=== PATIENT | female | born 1940 | race Caucasian/White ===

== ENCOUNTER → 2017-07-26 | Outpatient (CLI) | payer OTHER, MEDICARE ==
[2016-01-14 10:01] VITALS: BP 112/60
== END ==
LOC: RAD 08:46
PROVIDERS: ATTEND Internal Medicine
DX: Z12.31 Encounter for screening mammogram for malignant neoplasm of breast (principal)
CPT/HCPCS: 77067

== ENCOUNTER → 2018-01-31 | Outpatient (CLI) | payer OTHER, MEDICARE ==
[2016-01-14 10:01] VITALS: BP 112/60
== END ==
LOC: LAB 07:12
PROVIDERS: ATTEND Internal Medicine Gastroenterology
DX: K64.0 First degree hemorrhoids (principal)
CPT/HCPCS: 82274

== ENCOUNTER 2021-02-06 17:33 | Inpatient (IN) ==
[2021-02-06] MEDS ORDERED: ADENOCARD INJ 6 MG ONE (18:23)
[2021-02-06] MEDS ORDERED: NS 1000 ML 1,000 ML ONE (18:24)
[2021-02-06] MEDS: NS 1000 ML 1,000 ML IV SCH (18:30)
[2021-02-06] MEDS ORDERED: CORDARONE INJ 150 MG VIAL ONE (18:32)
[2021-02-06] MEDS ORDERED: NS 100 ML IV 100 ML IV ONE ×2 (18:32→19:03)
[2021-02-06] MEDS ORDERED: ADENOCARD INJ 6 MG IVP ONE (18:35)
[2021-02-06] MEDS: ADENOCARD INJ 6 MG IVP ONE (18:36)
[2021-02-06] MEDS ORDERED: CORDARONE INJ 150 MG VIAL IVP ONE (18:41)
[2021-02-06] MEDS ORDERED: CARDIZEM INJ 50 MG VIAL IVP ONE (18:56)
[2021-02-06 19:00] LABS: BASOPHILS # (AUTO) 0.1 X10^3/uL (0.0-0.1); BASOPHILS % (AUTO) 0.5 % (0.2-1.0); EOSINOPHILS # (AUTO) 0.1 x10^3/uL (0.0-0.2); EOSINOPHILS % (AUTO) 0.7 % (0.9-2.9); HEMOGLOBIN 12.3 g/dL (12.0-16.0); LYMPHOCYTES # (AUTO) 1.7 X10^3/uL (1.3-2.9); LYMPHOCYTES % (AUTO) 11.4 % (21.0-51.0); MEAN CORPUSCULAR HEMOGLOBIN 26.8 pg (27.0-34.0); MEAN CORPUSCULAR HGB CONC 32.4 g/dL (33.0-35.0); MEAN CORPUSCULAR VOLUME 82.8 fL (80.0-100.0); MEAN PLATELET VOLUME 9.3 fL (7.4-11.0); MONOCYTES # (AUTO) 0.4 x10^3/uL (0.3-0.8); MONOCYTES % (AUTO) 2.4 % (0.0-13.0); PLATELET COUNT 269 X10^3/uL (150.0-450.0); RED CELL DISTRIBUTION WIDTH 15.3 % (11.6-16.5); WHITE BLOOD COUNT 15.3 X10^3/uL (3.6-10.0)
[2021-02-06] MEDS ORDERED: CARDIZEM INJ 50 MG VIAL ONE (19:02)
[2021-02-06] MEDS ORDERED: CARDIZEM INJ 125 MG VIAL ONE (19:02)
[2021-02-06] MEDS: CARDIZEM INJ 125 MG VIAL 125 MG in NS 100 ML IV 100 ML IV PRN (19:12)
[2021-02-06 19:14] LABS: BLOOD UREA NITROGEN 37 mg/dL (7-18); CALCIUM 8.4 mg/dL (8.5-10.1); CARBON DIOXIDE 23.3 mmol/L (21-32); CHLORIDE 104 mmol/L (98-107); CREATININE 1.05 mg/dL (0.55-1.02); SODIUM 141 mmol/L (136-145); TROPONIN I < 0.02 ng/mL (0-1.5); eGFR NON BLACK RACES 53 (>60)
[2021-02-06 19:18] LABS: ALANINE AMINOTRANSFERASE 23 Units/L (12-78); ALKALINE PHOSPHATASE 87 Units/L (46-116); ASPARTATE AMINO TRANSFERASE 35 Units/L (15-37); CKMB % 1.5 % (<4); COR CA(FOR HYPOALB) 9.2 mg/dL (8.5-10.1); CREATINE KINASE 65 Units/L (26-192); CREATINE KINASE MB < 1.0 ng/mL (0-4.0); TOTAL PROTEIN 7.1 g/dL (6.4-8.2)
--- NOTE | 2021-02-06 19:46 | DR.SOBA ---
HPI Time Seen Time Seen by Provider: 02/06/21 19:17 Primary Care Physician Primary Care Physician: Barry HPI Comment HPI Comment: According to pt she has hx of colon cancer .recently was noted to have malignant ascites .Pt had seen haem /onc at [place]. However over the last 2 days noticed increased belly swelling and increase shortness of breath. Complaints Chief Complaint Doctors Comments: shortness of breath Chief Complaint:: The patient has a diagnosis of stomach cancer, and has had to have fluid pulled from her abomen several times. The family member states that she just had chemo in [place], and fluid has accumulated quickly in her abdomen at this time. The patient states that it is difficult to breath due to the pressure. COVID-19 Coronavirus risk:travel/contact w/high risk person: No Has patient experienced Coronavirus symptoms: No Reviewed Nurses Notes Reviewed: Yes Source History Provided: Patient and Family Member Mode of Arrival Mode of Arrival: Wheelchair Timing Onset of Chief Complaint: 02/05/21 Context Onset:: At Rest Prehospital Care:: None Modifying Factors Worsens:: Lying Flat Improves:: Nothing PMH PMH Past Medical History: Yes Past Medical History: Arthritis, Coronary Artery Disease, Diabetes, Dyslipidemia, GERD and Hypertension Past Medical History Comment: Abdomen cancer Past Surgical History: Yes Surgical History: Bowel Resection Family History History of Family Medical Conditions: Yes Family Medical History: Diabetes Mellitus and Hypertension Social History Does patient currently use any type of tobacco product: No Have you used tobacco products in the last 12 months: No Type of Tobacco Use: None Does any household member use tobacco: No Alcohol Use: None Do you use any recreational Drugs:: No Lives With: Family Lives Where: Home Travel Risk Coronavirus risk:travel/contact w/high risk person: No Has patient experienced Coronavirus symptoms: No Infectious screening In the last 2 months have you had wt loss of >10#?: NO Have you had fever, night sweats or hemotysis?: No Have you traveled outside the country in the last 6 months?: No Isolation: Standard ROS Review of Systems Constitutional: No Symptoms Reported Eyes: No Symptoms Reported ENTM: No Symptoms Reported Respiratoy: Short of Breath Cardiovascular: Palpitations Gastrointestinal/Abdominal: Other (abdominal distension) Integumentary: No Symptoms Reported PE Vital Signs Vitals: Temperature 98.3 F Pulse Rate 89 Respiratory Rate 20 Blood Pressure [Right Arm] 160/71 Blood Pressure 150/85 O2 Sat by Pulse Oximetry 98 General Limitations: No Limitations General Appearance: Alert and Anxious Head Head Exam: Normal Inspection Eyes Eye exam: PERRL ENT ENT Exam: Mucous Membranes Moist Neck Neck Exam: Full ROM Respiratory Respiratory Exam: Normal Lung Sounds Bilat Respiratory Exam: Bilateral: Clear to Auscultation Cardiovascular Cardiovascular Exam: +S1 and +S2 Abdominal Exam Abdominal Exam: Other (disstened with pos fluid wave ) Extremities Extremities Exam: Normal Inspection Neurologic Neurological Exam: Alert COURSE Treatment Treatment: Pt when connected to monitor was noted to have HR over 200 but EKG showed wide qrs complex tachycardia. she was treated with adenosine,amioderone .did have several episodes of afib on the monitor.Pt was started on cardizem drip .Heart rate slowly improved .pt had no st elevation of EKG but did have right bundle branch block as well as left anterior fasicular block .cardiac enzymes were neg .her Dimer was elevated at 18.CTA did show pulmonary embolism .Pt did have central line placed .Pt was discussed with Dr Yanes and she agreed to admit under her services .Time spent in managing patients acute problem as well as evaluating her labs studies over 1hour ROR Labs Reviewed Laboratory Results Reviewed?: Yes Result Diagrams: 02/06/21 18:17 02/06/21 18:17 Laboratory: WBC 15.3 X10^3/uL (3.6-10.0) H 02/06/21 18:17 RBC 4.60 X10^6/uL (3.5-5.4) 02/06/21 18:17 Hgb 12.3 g/dL (12.0-16.0) 02/06/21 18:17 Hct 38.0 % (36.0-47.0) 02/06/21 18:17 MCV 82.8 fL (80.0-100.0) 02/06/21 18:17 MCH 26.8 pg (27.0-34.0) L 02/06/21 18:17 MCHC 32.4 g/dL (33.0-35.0) L 02/06/21 18:17 RDW 15.3 % (11.6-16.5) 02/06/21 18:17 Plt Count 269 X10^3/uL (150.0-450.0) 02/06/21 18:17 MPV 9.3 fL (7.4-11.0) 02/06/21 18:17 Neut % (Auto) 85.0 % (42.0-75.0) H 02/06/21 18:17 Lymph % (Auto) 11.4 % (21.0-51.0) L 02/06/21 18:17 [place] % (Auto) 2.4 % (0.0-13.0) 02/06/21 18:17 Eos % (Auto) 0.7 % (0.9-2.9) L 02/06/21 18:17 Baso % (Auto) 0.5 % (0.2-1.0) 02/06/21 18:17 Neut # (Auto) 13.0 x10^3/uL (2.2-4.8) H 02/06/21 18:17 Lymph # (Auto) 1.7 X10^3/uL (1.3-2.9) 02/06/21 18:17 [place] # (Auto) 0.4 x10^3/uL (0.3-0.8) 02/06/21 18:17 Eos # (Auto) 0.1 x10^3/uL (0.0-0.2) 02/06/21 18:17 Baso # (Auto) 0.1 X10^3/uL (0.0-0.1) 02/06/21 18:17 Absolute Nucleated RBC 0.0 /100WBC 02/06/21 18:17 PT 13.9 SECONDS (11.8-14.3) 02/06/21 18:17 INR Target Range - 02/06/21 18:17 INR 1.12 (0.8-1.3) 02/06/21 18:17 APTT 23.8 SECONDS (22.9-36.5) 02/06/21 18:17 PTT Comment - 02/06/21 18:17 D-Dimer 18.62 ug/ml (0.0-0.57) H* 02/06/21 18:17 Sodium 141 mmol/L (136-145) 02/06/21 18:17 Corrected Sodium TNP 02/06/21 18:17 Potassium 3.8 mmol/L (3.5-5.1) 02/06/21 18:17 Chloride 104 mmol/L (98-107) 02/06/21 18:17 Carbon Dioxide 23.3 mmol/L (21-32) 02/06/21 18:17 BUN 37 mg/dL (7-18) H 02/06/21 18:17 Creatinine 1.05 mg/dL (0.55-1.02) H 02/06/21 18:17 Est GFR (MDRD) Af Amer > 60 (>60) 02/06/21 18:17 Est GFR (MDRD) Non-Af 53 (>60) L 02/06/21 18:17 Glucose 98 mg/dL (65-99) 02/06/21 18:17 Calcium 8.4 mg/dL (8.5-10.1) L 02/06/21 18:17 Corrected Calcium 9.2 mg/dL (8.5-10.1) 02/06/21 18:17 Total Bilirubin 0.30 mg/dL (0.2-1.0) 02/06/21 18:17 AST 35 Units/L (15-37) 02/06/21 18:17 ALT 23 Units/L (12-78) 02/06/21 18:17 Alkaline Phosphatase 87 Units/L (46-116) 02/06/21 18:17 Creatine Kinase 65 Units/L (26-192) 02/06/21 18:17 CK-MB (CK-2) < 1.0 ng/mL (0-4.0) 02/06/21 18:17 CK/CKMB % Calc 1.5 % (<4) 02/06/21 18:17 Troponin I < 0.02 ng/mL (0-1.5) 02/06/21 18:17 B-Natriuretic Peptide 136 pg/mL (0-79) H 02/06/21 18:17 Total Protein 7.1 g/dL (6.4-8.2) 02/06/21 18:17 Albumin 3.0 g/dL (3.4-5.0) L 02/06/21 18:17 Globulin 4.1 g/dL (2.5-4.5) 02/06/21 18:17 Albumin/Globulin Ratio 0.7 Ratio (1.1-2.1) L 02/06/21 18:17 Specimen Type Catherized urine 02/06/21 22:28 Urine Color Yellow (YELLOW) 02/06/21 22:28 Urine Appearance Clear (CLEAR) 02/06/21 22: Urine pH 5.0 (5.0 - 8.0) 02/06/21 22:28 Ur Specific [place] 1.010 (1.000-1.030) 02/06/21 22:28 Urine Protein 1+ (NEGATIVE) 02/06/21 22:28 Urine Glucose (UA) Negative (NEGATIVE) 02/06/21 22:28 Urine Ketones Negative (NEGATIVE) 02/06/21 22:28 Urine Occult Blood 3+ (NEGATIVE) 02/06/21 22:28 Urine Nitrite Negative (NEGATIVE) 02/06/21 22: Urine Bilirubin Negative (NEGATIVE) 02/06/21 22: Urine Urobilinogen Normal (NORMAL) 02/06/21 22:28 Ur Leukocyte Esterase Negative (NEGATIVE) 02/06/21 22:28 Urine RBC 3-5 /HPF (0-3) A 02/06/21 22:28 Urine WBC 0-2 /HPF (0-5) 02/06/21 22:28 Ur Squamous Epith Cells Negative /HPF (NEGATIVE) 02/06/21 22:28 Urine Bacteria Negative /HPF (NEGATIVE) 02/06/21 22:28 Ur Culture Indicated? Yes/culture set up 02/06/21 22:28 SARS CoV-2 RNA Rapid JOSE RAMON Negative (NEGATIVE) 02/06/21 22:28 Opioid Opioid Risk Tool Age (Levi box if 16-45): No History of Preadolescent Sexual Abuse: No Total: 0 Total Score Risk Category: Low Risk Copyright: Samson HA predicting aberrant behaviors Diagnosis Discharge Problem: Regular sinus tachycardia, Paroxysmal A-fib, Diabetes mellitus type 2, Hyperlip idemia Pulmonary embolism Qualifiers: Pulmonary embolism type: unspecified Chronicity: acute Acute cor pulmonale presence: without acute cor pulmonale Qualified Code(s): I26.99 - Other pulmonary embolism without acute cor pulmonale Colon cancer Qualifiers: Colon location: unspecified part of colon Qualified Code(s): C18.9 - Malignant neoplasm of colon, unspecified Abdominal ascites Qualifiers: Ascites type: malignant Qualified Code(s): R18.0 - Malignant ascites Instructions Forms: Patient Portal
--- NOTE | 2021-02-06 20:39 | RAD ---
HISTORYcentral line placementSTUDYCHEST, 1 [id number]/01/2021FINDINGSThe trachea is midline. Right subclavian central line with tip in the proximal right atrium. The cardiac silhouette is stable. The lungs are clear without focal infiltrate or effusion. No pneumothorax. The bony thorax is unremarkable.IMPRESSIONRight subclavian central line with tip in proximal right atrium.No active cardiopulmonary diseaseElectronically signed by: Clinton Mackay (February 06, 2021 20:36:58)
--- NOTE | 2021-02-06 21:14 | RAD ---
HISTORYdifficulty breathingSTUDYCHEST, 1 VIEWCOMPARISONNone availableTECHNIQUEChest radiographic imaging, AP portable projection, 1 imageFINDINGSMild cardiomegaly.Diffuse increased interstitial markings likely represent senescent changes.No focal airspace disease.No pleural effusion.No pneumothorax.No acute osseous abnormality.IMPRESSIONNo imaging findings of acute cardiopulmonary disease.Electronically signed by: Paul Lloyd (February 06, 2021 21:11:33)
--- NOTE | 2021-02-06 21:22 | CT ---
HISTORYA theSTUDYCTA CHESTCOMPARISONChest radiograph 02/06/2021 isTECHNIQUEMultiple axial images of the chest were obtained from the thoracic inlet to the upper abdomen after the administration of IV contrast. 3D reconstructions utilizing axial MIPS imaging was performed and reviewed. Dose reduction techniques including Automated Exposure Control (AEC) and adjustment of mA and kV were utilized.FINDINGSThe mediastinum does not demonstrate significant pathological lymphadenopathy. There is no paracardial effusion observed. The thoracic aorta is normal in its contour without evidence for aneurysmal dilatation. There are several thrombi within segmental and subsegmental branches supplying the right upper and lower lobes. There are no thrombi within the pulmonary trunk or left or right main pulmonary arteries. There is no CT evidence of right heart strain.Evaluation of the lung parenchyma fails to demonstrate focal consolidation or effusion. Subsegmental atelectasis within the left lung base. No pneumothorax. No pulmonary nodule or mass can be identified. The bony thorax is unremarkable in its appearance. There is a right subclavian central line with a small amount of subcutaneous emphysema near the insertion site. Moderate to large volume ascites and peritoneal carcinomatosis seen in the upper abdomen.IMPRESSIONAcute pulmonary embolic disease with several small thrombi within segmental and subsegmental branches supplying the right upper and right lower lobes. Clot burden low.Mild subsegmental atelectasis within the left lung base.Moderate to large volume ascites and peritoneal carcinomatosis within the upper abdomen.The availability of the report and findings were communicated to Dr. Loco by Radiology call production support supervisor on 9:20 p.m. 02/06/[address] Clinton Mackay.Electronically signed by: Clinton Mackay (February 06, 2021 21:20:48)
[2021-02-06 22:56] LABS: BILIRUBIN,URINE NEGATIVE (NEGATIVE); BLOOD/HEMOGLOBIN,URINE 3+ (NEGATIVE); GLUCOSE, URINE NEGATIVE (NEGATIVE); KETONES,URINE NEGATIVE (NEGATIVE); LEUKOCYTE ESTERASE ,URINE NEGATIVE (NEGATIVE); NITRITES,URINE NEGATIVE (NEGATIVE); PROTEIN,URINE 1+ (NEGATIVE); UROBILINOGEN,URINE NORMAL (NORMAL)
[2021-02-06 23:03] LABS: APPEARANCE,URINE CLEAR (CLEAR); BACTERIA,URINE NEGATIVE /HPF (NEGATIVE); COLOR,URINE YELLOW (YELLOW); SQUAMOUS EPITHELIAL CELL,UR NEGATIVE /HPF (NEGATIVE)
[2021-02-06] MEDS ORDERED: LOVENOX INJ 60 MG SYR SC ONE (23:37)
[2021-02-07] MEDS: ADENOCARD INJ 6 MG IVP ONE (00:11)
[2021-02-07 00:25] LABS: CKMB % 1.5 % (<4); CREATINE KINASE 66 Units/L (26-192); CREATINE KINASE MB < 1.0 ng/mL (0-4.0); TROPONIN I 0.02 ng/mL (0-1.5)
[2021-02-07] MEDS ORDERED: CARDIZEM INJ 125 MG VIAL ONE (01:08)
[2021-02-07] MEDS ORDERED: NS 100 ML IV 100 ML IV ONE ×2 (01:08→16:09)
[2021-02-07] MEDS: CARDIZEM INJ 125 MG VIAL 125 MG in NS 100 ML IV 100 ML IV PRN ×3 (01:40→20:07)
[2021-02-07 04:44] LABS: BASOPHILS # (AUTO) 0.1 X10^3/uL (0.0-0.1); BASOPHILS % (AUTO) 0.5 % (0.2-1.0); EOSINOPHILS # (AUTO) 0.1 x10^3/uL (0.0-0.2); HEMATOCRIT 33.2 % (36.0-47.0); HEMOGLOBIN 10.6 g/dL (12.0-16.0); LYMPHOCYTES # (AUTO) 0.9 X10^3/uL (1.3-2.9); LYMPHOCYTES % (AUTO) 7.4 % (21.0-51.0); MEAN CORPUSCULAR HEMOGLOBIN 26.5 pg (27.0-34.0); MEAN CORPUSCULAR VOLUME 83.1 fL (80.0-100.0); MEAN PLATELET VOLUME 9.4 fL (7.4-11.0); MONOCYTES # (AUTO) 0.2 x10^3/uL (0.3-0.8); MONOCYTES % (AUTO) 2.1 % (0.0-13.0); NEUTROPHILS # (AUTO) 10.7 x10^3/uL (2.2-4.8); PLATELET COUNT 212 X10^3/uL (150.0-450.0); RED CELL DISTRIBUTION WIDTH 15.1 % (11.6-16.5)
[2021-02-07 05:14] LABS: ALANINE AMINOTRANSFERASE 17 Units/L (12-78); ALBUMIN 2.5 g/dL (3.4-5.0); ALKALINE PHOSPHATASE 68 Units/L (46-116); ASPARTATE AMINO TRANSFERASE 28 Units/L (15-37); BLOOD UREA NITROGEN 32 mg/dL (7-18); CALCIUM 7.9 mg/dL (8.5-10.1); CARBON DIOXIDE 25.2 mmol/L (21-32); CHLORIDE 107 mmol/L (98-107); CKMB % 1.9 % (<4); COR CA(FOR HYPOALB) 9.1 mg/dL (8.5-10.1); CREATINE KINASE 57 Units/L (26-192); CREATINE KINASE MB 1.1 ng/mL (0-4.0); CREATININE 0.78 mg/dL (0.55-1.02); SODIUM 142 mmol/L (136-145); TROPONIN I < 0.02 ng/mL (0-1.5); eGFR NON BLACK RACES > 60 (>60)
[2021-02-07] MEDS ORDERED: LOVENOX INJ 60 MG SYR SC SCH (09:00)
[2021-02-07] MEDS ORDERED: ZOFRAN TAB 4 MG PO PRN (09:24)
[2021-02-07] MEDS ORDERED: GLUCOPHAGE PO SCH (10:00)
--- NOTE | 2021-02-07 10:06 | DR.H&P ---
H&P History & Physical for Day of: H&P Date: 02/07/21 Chief Complaint Chief Complaint: Abdominal pain and distention Shortness of breath Allergies Allergies Allergy/AdvReac Type Severity Reaction Status Date / Time No Known Drug Allergies Allergy Verified 01/12/21 09:39 History of Present Illness History of Present Illness: Pt is a 80 year old female with a medical history of peritoneal carcinomatosis, hypertension, diabetes, presenting after having abdominal pain, distention, and shortness of breath. Pt states that she was diagnosed with colon cancer in the past that was surgically removed back in 2004. It was recently discovered over the past month that she has peritoneal carcinomatosis and is followed by oncology-Dr Tomlin in [place], [place]. She had her first chemotherapy treatment last . Over the past few days her abdomen progressively distended and causing shortness of breath. She has had paracentesis before in the past and is on diuretics, however ascites became rapidly worse after chemo. Pt denies fevers, chills. In the ED, she was di scovered to have tachyarrhythmia and given adenosine and amiodarone. It was noted at the time also paroxysmal atrial fibrillation. She was started on a cardizem gtt for rate control. Labs: Wbc 12, Hgb 10.6, Plt 212, Na 142, K 3.6, Creatinine 0.78, Glucose 96, AST 28, ALT 17, ALKP 68, Troponin negative x 3, BNP 136, Urine culture pending, COVID-19 negative. D-dimer elevated at 18, CTA chest was obtained that revealed: Acute pulmonary embolic disease with several small thrombi within segmental and subsegmental branches supplying the right upper and right lower lobes. Clot burden low. Mild subsegmental atelectasis within the left lung base. Moderate to large volume ascites and peritoneal carcinomatosis within the upper abdomen. Pt was started on full dose lovenox due to findings of pulmonary embolus. General surgery was consulted for paracentesis to be performed today. Will start antibiotics when fluid sample obtained for culture and cytology. Blood pressure and pulse within normal limits on cardizem gtt@15/h. Will wean as tolerated, Ekg this morning does not show atrial fibrillation and tachycardia likely result of increased stress due to significant ascites causing abdominal pressure and discomfort. Restart home medications. Will continue to monitor and follow up labs/imaging in the morning. Time spent on clinical assessment, reviewing labs and imaging, decision making, and documentation greater than 75 minutes. Critical care time spent 30-74 minutes in clinical assessment, reviewing labs/imaging, decision making, and documentation. Past Medical History Past Medical History: Arthritis, Coronary Artery Disease, Diabetes, Dyslipidemia, GERD and Hypertension Additional Medical History: Hx Diverticulitis, Colon Cancer, Constipation Past Surgical History Surgical History: Bowel Resection Additional Surgical History: Previous heart cath Family History Family Medical History: Diabetes Mellitus and Hypertension Social History Does patient currently use any type of tobacco product: No Have you used tobacco products in the last 12 months: No Type of Tobacco Use: None Does any household member use tobacco: No Alcohol Use: None Drug Use: Prescription Drugs Medications Home Medications: No Known Drug Allergies Allergy (Verified 01/12/21 09:39) CONTINUE taking the following medications amlodipine 10 mg PO DAILY 02/06/21 [History] furosemide [Lasix] 20 mg PO BID 02/06/21 [History] gemfibrozil 600 mg PO DAILY 02/06/21 [History] megestrol 40 mg PO BID 02/06/21 [History] ondansetron HCl [Zofran] 4 mg PO Q4-6H PRN 02/06/21 [History] potassium chloride 10 meq PO BID 02/06/21 [History] triamterene-hydrochlorothiazid 1 cap PO DAILY 02/06/21 [History] Labs Result Diagrams: 02/07/21 04:15 02/07/21 04:15 Labs: Laboratory WBC 12.0 X10^3/uL (3.6-10.0) H 02/07/21 04:15 RBC 4.00 X10^6/uL (3.5-5.4) 02/07/21 04:15 Hgb 10.6 g/dL (12.0-16.0) L 02/07/21 04:15 Hct 33.2 % (36.0-47.0) L 02/07/21 04:15 MCV 83.1 fL (80.0-100.0) 02/07/21 04:15 MCH 26.5 pg (27.0-34.0) L 02/07/21 04:15 MCHC 32.0 g/dL (33.0-35.0) L 02/07/21 04:15 RDW 15.1 % (11.6-16.5) 02/07/21 04:15 Plt Count 212 X10^3/uL (150.0-450.0) 02/07/21 04:15 MPV 9.4 fL (7.4-11.0) 02/07/21 04:15 Neut % (Auto) 89.0 % (42.0-75.0) H 02/07/21 04:15 Lymph % (Auto) 7.4 % (21.0-51.0) L 02/07/21 04:15 [place] % (Auto) 2.1 % (0.0-13.0) 02/07/21 04:15 Eos % (Auto) 1.0 % (0.9-2.9) 02/07/21 04:15 Baso % (Auto) 0.5 % (0.2-1.0) 02/07/21 04:15 Neut # (Auto) 10.7 x10^3/uL (2.2-4.8) H 02/07/21 04:15 Lymph # (Auto) 0.9 X10^3/uL (1.3-2.9) L 02/07/21 04:15 [place] # (Auto) 0.2 x10^3/uL (0.3-0.8) L 02/07/21 04:15 Eos # (Auto) 0.1 x10^3/uL (0.0-0.2) 02/07/21 04:15 Baso # (Auto) 0.1 X10^3/uL (0.0-0.1) 02/07/21 04:15 Absolute Nucleated RBC 0.0 /100WBC 02/07/21 04:15 PT 13.9 SECONDS (11.8-14.3) 02/06/21 18:17 INR Target Range - 02/06/21 18:17 INR 1.12 (0.8-1.3) 02/06/21 18:17 APTT 23.8 SECONDS (22.9-36.5) 02/06/21 18:17 PTT Comment - 02/06/21 18:17 D-Dimer 18.62 ug/ml (0.0-0.57) H* 02/06/21 18:17 Sodium 142 mmol/L (136-145) 02/07/21 04:15 Corrected Sodium TNP 02/07/21 04:15 Potassium 3.6 mmol/L (3.5-5.1) 02/07/21 04:15 Chloride 107 mmol/L (98-107) 02/07/21 04:15 Carbon Dioxide 25.2 mmol/L (21-32) 02/07/21 04:15 BUN 32 mg/dL (7-18) H 02/07/21 04:15 Creatinine 0.78 mg/dL (0.55-1.02) 02/07/21 04:15 Est GFR (MDRD) Af Amer > 60 (>60) 02/07/21 04:15 Est GFR (MDRD) Non-Af > 60 (>60) 02/07/21 04:15 Glucose 96 mg/dL (65-99) 02/07/21 04:15 Calcium 7.9 mg/dL (8.5-10.1) L 02/07/21 04:15 Corrected Calcium 9.1 mg/dL (8.5-10.1) 02/07/21 04:15 Total Bilirubin 0.40 mg/dL (0.2-1.0) 02/07/21 04:15 AST 28 Units/L (15-37) 02/07/21 04:15 ALT 17 Units/L (12-78) 02/07/21 04:15 Alkaline Phosphatase 68 Units/L (46-116) 02/07/21 04:15 Creatine Kinase 57 Units/L (26-192) 02/07/21 04:15 CK-MB (CK-2) 1.1 ng/mL (0-4.0) 02/07/21 04:15 CK/CKMB % Calc 1.9 % (<4) 02/07/21 04:15 Troponin I < 0.02 ng/mL (0-1.5) 02/07/21 04:15 B-Natriuretic Peptide 136 pg/mL (0-79) H 02/06/21 18:17 Total Protein 6.0 g/dL (6.4-8.2) L 02/07/21 04:15 Albumin 2.5 g/dL (3.4-5.0) L 02/07/21 04:15 Globulin 3.5 g/dL (2.5-4.5) 02/07/21 04:15 Albumin/Globulin Ratio 0.7 Ratio (1.1-2.1) L 02/07/21 04:15 Specimen Type Catherized urine 02/06/21 22:28 Urine Color Yellow (YELLOW) 02/06/21 22:28 Urine Appearance Clear (CLEAR) 02/06/21 22: Urine pH 5.0 (5.0 - 8.0) 02/06/21 22: Ur Specific [place] 1.010 (1.000-1.030) 02/06/21 22: Urine Protein 1+ (NEGATIVE) 02/06/21 22: Urine Glucose (UA) Negative (NEGATIVE) 02/06/21 22: Urine Ketones Negative (NEGATIVE) 02/06/21 22: Urine Occult Blood 3+ (NEGATIVE) 02/06/21 22: Urine Nitrite Negative (NEGATIVE) 02/06/21 22: Urine Bilirubin Negative (NEGATIVE) 02/06/21 22: Urine Urobilinogen Normal (NORMAL) 02/06/21 22:28 Ur Leukocyte Esterase Negative (NEGATIVE) 02/06/21 22:28 Urine RBC 3-5 /HPF (0-3) A 02/06/21 22:28 Urine WBC 0-2 /HPF (0-5) 02/06/21 22:28 Ur Squamous Epith Cells Negative /HPF (NEGATIVE) 02/06/21 22:28 Urine Bacteria Negative /HPF (NEGATIVE) 02/06/21 22:28 Ur Culture Indicated? Yes/culture set up 02/06/21 22:28 SARS CoV-2 RNA Rapid JOSE RAMON Negative (NEGATIVE) 02/06/21 22:28 Review of Systems Constitutional: No Symptoms Reported Eyes: No Symptoms Reported ENT: No Symptoms Reported Respiratory: Shortness of Breath Cardiovascular: No Symptoms Reported Gastrointestinal: Abdominal Pain; denies Nausea, Diarrhea and Constipation Genitourinary: No Symptoms Reported Musculoskeletal: No Symptoms Reported Skin: No Symptoms Reported Neurological: No Symptoms Reported Physical Exam Vital Signs: Temperature 98.9 F Pulse Rate [Left] 79 Pulse Rate 79 Respiratory Rate 25 Blood Pressure [Right Arm] 149/69 Blood Pressure 133/60 O2 Sat by Pulse Oximetry 96 Oriented: Normal Eyes: Normal Ear: Normal Nose: Normal Throat: Normal Respiratory: Clear Throughout Cardiovascular: Normal : Normal Auscultation: Bowel Sounds: Decreased Palpation: Other (distention) Tenderness: Normal Skin: Normal Musculoskeletal: Normal Psychiatric: Normal Mood Description: Calm and Appropriate Affect: Normal Speech Pattern: Clear and Appropriate Assessment/Plan (1) Pulmonary embolism: Qualifiers: Acute cor pulmonale presence: without acute cor pulmonale Chronicity: acute Pulmonary embolism type: unspecified Qualified Code(s): I26.99 - Other pulmonary embolism without acute cor pulmonale Status: Acute Plan: Full dose lovenox (2) Ascites, malignant: Status: Acute Plan: General surgery consulted for paracentesis (3) Paroxysmal A-fib: Status: Acute Plan: cardizem gtt wean as tolerated (4) Regular sinus tachycardia: Status: Acute Review H&P Reviewed: Yes Patient was examined?: Yes
[2021-02-07] MEDS: LASIX PO SCH ×2 (15:11→20:07)
[2021-02-07] MEDS: MICRO K EXTEN CAP 10 MEQ PO SCH ×2 (15:11→20:07)
[2021-02-07] MEDS: NS 1000 ML 1,000 ML IV SCH (15:12)
[2021-02-07] MEDS: MEGACE PO SCH ×2 (15:12→20:07)
[2021-02-07] MEDS: NORVASC TAB 10 MG PO SCH (15:13)
[2021-02-07] MEDS: LOPID PO SCH (15:13)
[2021-02-07] MEDS: ROCEPHIN 1 GRAM IV PREMIX 1 G/50 ML IV.SOLN. IV SCH (16:02)
[2021-02-07] MEDS ORDERED: LOVENOX INJ 80 MG SYR SC ONE (19:27)
[2021-02-07] MEDS ORDERED: ZOCOR TAB 20 MG PO ONE (19:28)
[2021-02-07] MEDS: LOVENOX INJ 80 MG SYR SC SCH (20:06)
[2021-02-07] MEDS: ZOCOR TAB 20 MG PO SCH (20:07)
[2021-02-07 21:15] VITALS: BMI 26.1
[2021-02-08] MEDS: NS 1000 ML 1,000 ML IV SCH ×4 (04:01→16:39)
[2021-02-08 05:21] LABS: BASOPHILS # (AUTO) 0.1 X10^3/uL (0.0-0.1); BASOPHILS % (AUTO) 0.5 % (0.2-1.0); EOSINOPHILS # (AUTO) 0.1 x10^3/uL (0.0-0.2); EOSINOPHILS % (AUTO) 1.3 % (0.9-2.9); HEMATOCRIT 33.4 % (36.0-47.0); HEMOGLOBIN 10.8 g/dL (12.0-16.0); LYMPHOCYTES # (AUTO) 0.7 X10^3/uL (1.3-2.9); LYMPHOCYTES % (AUTO) 6.8 % (21.0-51.0); MEAN CORPUSCULAR HEMOGLOBIN 26.8 pg (27.0-34.0); MEAN CORPUSCULAR HGB CONC 32.4 g/dL (33.0-35.0); MEAN CORPUSCULAR VOLUME 82.8 fL (80.0-100.0); MEAN PLATELET VOLUME 9.6 fL (7.4-11.0); MONOCYTES # (AUTO) 0.1 x10^3/uL (0.3-0.8); MONOCYTES % (AUTO) 1.2 % (0.0-13.0); NEUTROPHILS # (AUTO) 9.2 x10^3/uL (2.2-4.8); NEUTROPHILS % (AUTO) 90.2 % (42.0-75.0); PLATELET COUNT 188 X10^3/uL (150.0-450.0); RED BLOOD COUNT 4.04 X10^6/uL (3.5-5.4); RED CELL DISTRIBUTION WIDTH 14.9 % (11.6-16.5); WHITE BLOOD COUNT 10.2 X10^3/uL (3.6-10.0)
[2021-02-08 05:32] LABS: ALANINE AMINOTRANSFERASE 24 Units/L (12-78); ALBUMIN 2.4 g/dL (3.4-5.0); ALKALINE PHOSPHATASE 64 Units/L (46-116); ASPARTATE AMINO TRANSFERASE 34 Units/L (15-37); BLOOD UREA NITROGEN 22 mg/dL (7-18); CALCIUM 7.7 mg/dL (8.5-10.1); CARBON DIOXIDE 24.2 mmol/L (21-32); CHLORIDE 106 mmol/L (98-107); CREATININE 0.66 mg/dL (0.55-1.02); MAGNESIUM 2.1 mg/dL (1.7-2.9); SODIUM 142 mmol/L (136-145); eGFR NON BLACK RACES > 60 (>60)
[2021-02-08 06:10] LABS: PLATELET MORPHOLOGY COMMENT NORMAL (NORMAL)
[2021-02-08] MEDS: LOPID PO SCH (09:56)
[2021-02-08] MEDS: LASIX PO SCH ×2 (09:56→21:20)
[2021-02-08] MEDS: LOVENOX INJ 80 MG SYR SC SCH ×2 (09:57→21:22)
[2021-02-08] MEDS: MEGACE PO SCH ×2 (09:58→21:21)
[2021-02-08] MEDS: MICRO K EXTEN CAP 10 MEQ PO SCH ×3 (10:00→21:19)
[2021-02-08] MEDS: MAXZIDE 37.5/25 MG PO SCH (10:00)
[2021-02-08] MEDS: ROCEPHIN 1 GRAM IV PREMIX 1 G/50 ML IV.SOLN. IV SCH (10:00)
[2021-02-08] MEDS ORDERED: ZOFRAN INJ 4 MG VIAL ONE (10:14)
[2021-02-08] MEDS: ZOFRAN INJ 4 MG VIAL IVP PRN ×2 (10:20→18:31)
--- NOTE | 2021-02-08 11:10 | DR.PROGNOT ---
Hospital Progress Notes - Progress Note for Day of: Progress Note Date: 02/08/21 - Chief Complaint Chief Complaint: feeling much better . s/p paracentesis and drainage . more than 3500 cc was drained already . less SOB . c/o moderate nausea . no abdominal pain. Catheter in place . - Past Medical Family Social History Past Med/Fam/Surg Hx: No changes since H&P Allergies: Allergies No Known Drug Allergies Allergy (Verified 01/12/21 09:39) - Review Of Systems ROS: No change since H&P - Vital Signs Vital Signs: Temperature 98.8 F Pulse Rate [Left] 79 Pulse Rate 89 Respiratory Rate 22 Blood Pressure [Right Arm] 149/69 Blood Pressure 138/66 O2 Sat by Pulse Oximetry 95 - Physical Exam Oriented: Normal Eyes: Normal Ear: Normal Nose: Normal Throat: Normal Respiratory: Normal, OTHER (positive for PE ) Cardiovascular: Normal : Normal GI:Auscultation: Decreased GI:Palpation: Other (distention) GI: Tenderness: Normal, Diffuse, Mild (diffuse tenderness but soft distended abdomen with ascites ) Skin: Normal Musculoskeletal: Normal Psychiatric: Normal Mood Description: Calm Affect: Normal Speech Pattern: Clear, Appropriate - Laboratory and Diagnostics Result Diagrams: 02/08/21 04:40 02/08/21 04:40 Labs: 02/06/21 22:28 Urine,Catheterized Urine Culture - Preliminary Laboratory WBC 10.2 X10^3/uL (3.6-10.0) H 02/08/21 04:40 RBC 4.04 X10^6/uL (3.5-5.4) 02/08/21 04:40 Hgb 10.8 g/dL (12.0-16.0) L 02/08/21 04:40 Hct 33.4 % (36.0-47.0) L 02/08/21 04:40 MCV 82.8 fL (80.0-100.0) 02/08/21 04:40 MCH 26.8 pg (27.0-34.0) L 02/08/21 04:40 MCHC 32.4 g/dL (33.0-35.0) L 02/08/21 04:40 RDW 14.9 % (11.6-16.5) 02/08/21 04:40 Plt Count 188 X10^3/uL (150.0-450.0) 02/08/21 04:40 Plt Count Comment Adequate (ADEQUATE) 02/08/21 04:40 MPV 9.6 fL (7.4-11.0) 02/08/21 04:40 Neut % (Auto) 90.2 % (42.0-75.0) H 02/08/21 04:40 Lymph % (Auto) 6.8 % (21.0-51.0) L 02/08/21 04:40 [place] % (Auto) 1.2 % (0.0-13.0) 02/08/21 04:40 Eos % (Auto) 1.3 % (0.9-2.9) 02/08/21 04:40 Baso % (Auto) 0.5 % (0.2-1.0) 02/08/21 04:40 Neut # (Auto) 9.2 x10^3/uL (2.2-4.8) H 02/08/21 04:40 Lymph # (Auto) 0.7 X10^3/uL (1.3-2.9) L 02/08/21 04:40 [place] # (Auto) 0.1 x10^3/uL (0.3-0.8) L 02/08/21 04:40 Eos # (Auto) 0.1 x10^3/uL (0.0-0.2) 02/08/21 04:40 Baso # (Auto) 0.1 X10^3/uL (0.0-0.1) 02/08/21 04:40 Absolute Nucleated RBC 0.0 /100WBC 02/08/21 04:40 Total Counted 100 02/08/21 04:40 Neutrophils % (Manual) 92 % (39-76) H 02/08/21 04:40 Lymphocytes % (Manual) 6 % (13-43) L 02/08/21 04:40 Monocytes % (Manual) 1 % (4-9) L 02/08/21 04:40 Eosinophils % (Manual) 1 % (0-6) 02/08/21 04:40 Plt Morphology Comment Normal (NORMAL) 02/08/21 04:40 RBC Morphology Normal (NORMAL) 02/08/21 04:40 PT 13.9 SECONDS (11.8-14.3) 02/06/21 18:17 INR Target Range - 02/06/21 18:17 INR 1.12 (0.8-1.3) 02/06/21 18:17 APTT 23.8 SECONDS (22.9-36.5) 02/06/21 18:17 PTT Comment - 02/06/21 18:17 D-Dimer 18.62 ug/ml (0.0-0.57) H* 02/06/21 18:17 Sodium 142 mmol/L (136-145) 02/08/21 04:40 Corrected Sodium TNP 02/08/21 04:40 Potassium 3.4 mmol/L (3.5-5.1) L 02/08/21 04:40 Chloride 106 mmol/L (98-107) 02/08/21 04:40 Carbon Dioxide 24.2 mmol/L (21-32) 02/08/21 04:40 BUN 22 mg/dL (7-18) H 02/08/21 04:40 Creatinine 0.66 mg/dL (0.55-1.02) 02/08/21 04:40 Est GFR (MDRD) Af Amer > 60 (>60) 02/08/21 04:40 Est GFR (MDRD) Non-Af > 60 (>60) 02/08/21 04:40 Glucose 92 mg/dL (65-99) 02/08/21 04:40 POC Glucose (mg/dL) 83 mg/dL (65-99) 02/07/21 19:41 Calcium 7.7 mg/dL (8.5-10.1) L 02/08/21 04:40 Corrected Calcium 9.0 mg/dL (8.5-10.1) 02/08/21 04:40 Magnesium 2.1 mg/dL (1.7-2.9) 02/08/21 04:40 Magnesium 2.1 mg/dL (1.7-2.9) 02/08/21 04:40 Total Bilirubin 0.40 mg/dL (0.2-1.0) 02/08/21 04:40 AST 34 Units/L (15-37) 02/08/21 04:40 ALT 24 Units/L (12-78) 02/08/21 04:40 Alkaline Phosphatase 64 Units/L (46-116) 02/08/21 04:40 Creatine Kinase 57 Units/L (26-192) 02/07/21 04:15 CK-MB (CK-2) 1.1 ng/mL (0-4.0) 02/07/21 04:15 CK/CKMB % Calc 1.9 % (<4) 02/07/21 04:15 Troponin I < 0.02 ng/mL (0-1.5) 02/07/21 04:15 B-Natriuretic Peptide 136 pg/mL (0-79) H 02/06/21 18:17 Total Protein 6.0 g/dL (6.4-8.2) L 02/08/21 04:40 Albumin 2.4 g/dL (3.4-5.0) L 02/08/21 04:40 Globulin 3.6 g/dL (2.5-4.5) 02/08/21 04:40 Albumin/Globulin Ratio 0.7 Ratio (1.1-2.1) L 02/08/21 04:40 Specimen Type Catherized urine 02/06/21 22:28 Urine Color Yellow (YELLOW) 02/06/21 22:28 Urine Appearance Clear (CLEAR) 02/06/21 22:28 Urine pH 5.0 (5.0 - 8.0) 02/06/21 22:28 Ur Specific [place] 1.010 (1.000-1.030) 02/06/21 22:28 Urine Protein 1+ (NEGATIVE) 02/06/21 22:28 Urine Glucose (UA) Negative (NEGATIVE) 02/06/21 22:28 Urine Ketones Negative (NEGATIVE) 02/06/21 22:28 Urine Occult Blood 3+ (NEGATIVE) 02/06/21 22:28 Urine Nitrite Negative (NEGATIVE) 02/06/21 22:28 Urine Bilirubin Negative (NEGATIVE) 02/06/21 22:28 Urine Urobilinogen Normal (NORMAL) 02/06/21 22:28 Ur Leukocyte Esterase Negative (NEGATIVE) 02/06/21 22:28 Urine RBC 3-5 /HPF (0-3) A 02/06/21 22:28 Urine WBC 0-2 /HPF (0-5) 02/06/21 22:28 Ur Squamous Epith Cells Negative /HPF (NEGATIVE) 02/06/21 22:28 Urine Bacteria Negative /HPF (NEGATIVE) 02/06/21 22:28 Ur Culture Indicated? Yes/culture set up 02/06/21 22:28 SARS CoV-2 RNA Rapid JOSE RAMON Negative (NEGATIVE) 02/06/21 22:28 - Assessment and Plan 1: PE on Lovenox . malignant ascites .s/p paracentesis .. ovarian cancer .with mets . to keep drainage catheter and central line - Problem Patient Problems: Patient Problems Abdominal ascites (Acute) R18.8 Regular sinus tachycardia (Acute) R00.0 Paroxysmal A-fib (Acute) I48.0 Colon cancer (Acute) C18.9 Pulmonary embolism (Acute) I26.99
--- NOTE | 2021-02-08 14:27 | PCM.PROG ---
Progress Note - Progress Note for Day of Date of Exam: 02/08/21 - Subjective Subjective: WAS ADMITTED FOR TREATMENT OF PULMONARY EMBOLISM, MALIGNANT ASCITES, AND PAROXYSMAL A-FIB. SHE WAS STARTED ON A TREATMENT DOSE OF LOVENOX, A CARDIZEM DRIP, AND WAS CONSULTED FOR A PARACENTESIS. PARACENTESIS WAS PERFORMED YESTERDAY. A CATHETER WAS INSERTED AND ATTACHED TO A DRAINAGE BAG FOR FREE FLOW OF BLOODY ASCITES. ANTIBIOTICS WERE STARTED AFTER CYTOLOGY. PATIENT RECENTLY STARTED CHEMO FOR PERITONEAL CARCINOMATOSIS. SHE HAS A PMH OF COLON CANCER. SHE REPORTS THAT MASS WAS REMOVED IN 2004. SHE IS FOLLOWED BY IN [place], [place]. SHE REMAINS ON A CARDIZEM DRIP THIS MORNING. TODAY, SHE IS ALERT AND ORIENTED, LYING IN BED ON MORNING ROUNDS. SHE CONTINUES WITH COMPLAINTS OF WEAKNESS, SHORTNESS OF BREATH, AND ABDOMINAL DISCOMFORT. HER PULSE IS CONTROLLED WITH THE CARDIZEM AT THIS TIME. ON EXAMINATION, HEART IS REGULAR IN RATE AND RHYTHM. BILATERAL LUNGS ARE NOTED WITH DIMINISHED LUNG SOUNDS THROUGHOUT. DRAINAGE BAG NOTED TO BEDSIDE WITH BLOODY ABDOMINAL FLUID. ABDOMEN IS DISTENDED AND NOTED WITH DIFFUSE TENDERNESS. NORMAL BOWEL SOUNDS NOTED IN ALL QUADRANTS. HER VITALS THIS MORNING ARE: 98.8-85-25-96%[place]-141/63. LABS WERE OBTAINED. ABNORMAL LAB VALUES INCLUDE THE FOLLOWING: WBC 10.2, HGB 10.8, HCT 33.4, POTASSIUM 3.4, BUN 22, CALCIUM 7.7, TOTAL PROTEIN 6.0, ALBUMIN 2.4. URINE CULTURE IS PENDING. SHE IS CURRENTLY RECEIVING ROCEPHIN 1G IV DAILY, CARDIZEM DRIP, LOVENOX 80MG SC BID, LASIX 20MG PO BID, LOPID 600MG PO DAILY, MEGACE 40MG PO BID, GLUCOPHAGE 500MG PO BID, ZOFRAN 4MG IV Q6H, POTASSIUM CHLORIDE 10MEQ PO BID, ZOCOR 20MG PO HS, AND MAXZIDE 37.5/25MG PO DAILY. TODAY, WE WILL INCREASE POTASSIUM TO 20MEQ PO BID, INCREASE ZOFRAN TO 8MG IV Q6H PRN, AND START PHENERGAN 25MG IM Q6H PRN NAUSEA. OTHERWISE, WE WILL CONTINUE WITH CURRENT PLAN OF CARE TODAY. TIME SPENT ON CLINICAL ASSESSMENT, REVIEWING LABS AND IMAGING, DECISION MAKING, AND DOCUMENTATION GREATER THAN 45 MINUTES. - Past Medical Family Social History Past Med/Fam/Surg Hx: No changes since H&P Allergies: Allergies No Known Drug Allergies Allergy (Verified 01/12/21 09:39) - Review of Systems ROS: No change since H&P - Vital Signs and I&O's Vital Signs: Temperature 98.8 F Pulse Rate [Left] 79 Pulse Rate 86 Respiratory Rate 22 Blood Pressure [Right Arm] 149/69 Blood Pressure 147/65 O2 Sat by Pulse Oximetry 96 Intake and Output: Intake & Output 02/06/21 02/07/21 02/08/21 02/09/21 11:59 11:59 11:59 11:59 Intake Total 676 / 676 1809 / 1809 Output Total 700 / 700 6100 / 6100 600 / 600 Balance -24 / -24 -4291 / -4291 -600 / -600 - Physical Exam Oriented: Normal Eyes: Normal Ear: Normal Nose: Normal Throat: Normal Respiratory: Normal, OTHER (positive for PE ) Cardiovascular: Normal : Normal Auscultation: Bowel Sounds: Decreased Tenderness: Normal, Diffuse, Mild (diffuse tenderness but soft distended abdomen with ascites ) Skin: Normal Musculoskeletal: Normal Psychiatric: Normal Mood Description: Calm Affect: Normal Speech Pattern: Clear, Appropriate - Laboratory and Diagnostics Result Diagrams: 02/09/21 04:05 02/09/21 04:05 Labs: 02/06/21 22:28 Urine,Catheterized Urine Culture - Preliminary Laboratory WBC 10.2 X10^3/uL (3.6-10.0) H 02/08/21 04:40 RBC 4.04 X10^6/uL (3.5-5.4) 02/08/21 04:40 Hgb 10.8 g/dL (12.0-16.0) L 02/08/21 04:40 Hct 33.4 % (36.0-47.0) L 02/08/21 04:40 MCV 82.8 fL (80.0-100.0) 02/08/21 04:40 MCH 26.8 pg (27.0-34.0) L 02/08/21 04:40 MCHC 32.4 g/dL (33.0-35.0) L 02/08/21 04:40 RDW 14.9 % (11.6-16.5) 02/08/21 04:40 Plt Count 188 X10^3/uL (150.0-450.0) 02/08/21 04:40 Plt Count Comment Adequate (ADEQUATE) 02/08/21 04:40 MPV 9.6 fL (7.4-11.0) 02/08/21 04:40 Neut % (Auto) 90.2 % (42.0-75.0) H 02/08/21 04:40 Lymph % (Auto) 6.8 % (21.0-51.0) L 02/08/21 04:40 [place] % (Auto) 1.2 % (0.0-13.0) 02/08/21 04:40 Eos % (Auto) 1.3 % (0.9-2.9) 02/08/21 04:40 Baso % (Auto) 0.5 % (0.2-1.0) 02/08/21 04:40 Neut # (Auto) 9.2 x10^3/uL (2.2-4.8) H 02/08/21 04:40 Lymph # (Auto) 0.7 X10^3/uL (1.3-2.9) L 02/08/21 04:40 [place] # (Auto) 0.1 x10^3/uL (0.3-0.8) L 02/08/21 04:40 Eos # (Auto) 0.1 x10^3/uL (0.0-0.2) 02/08/21 04:40 Baso # (Auto) 0.1 X10^3/uL (0.0-0.1) 02/08/21 04:40 Absolute Nucleated RBC 0.0 /100WBC 02/08/21 04:40 Total Counted 100 02/08/21 04:40 Neutrophils % (Manual) 92 % (39-76) H 02/08/21 04:40 Lymphocytes % (Manual) 6 % (13-43) L 02/08/21 04:40 Monocytes % (Manual) 1 % (4-9) L 02/08/21 04:40 Eosinophils % (Manual) 1 % (0-6) 02/08/21 04:40 Plt Morphology Comment Normal (NORMAL) 02/08/21 04:40 RBC Morphology Normal (NORMAL) 02/08/21 04:40 PT 13.9 SECONDS (11.8-14.3) 02/06/21 18:17 INR Target Range - 02/06/21 18:17 INR 1.12 (0.8-1.3) 02/06/21 18:17 APTT 23.8 SECONDS (22.9-36.5) 02/06/21 18:17 PTT Comment - 02/06/21 18:17 D-Dimer 18.62 ug/ml (0.0-0.57) H* 02/06/21 18:17 Sodium 142 mmol/L (136-145) 02/08/21 04:40 Corrected Sodium TNP 02/08/21 04:40 Potassium 3.4 mmol/L (3.5-5.1) L 02/08/21 04:40 Chloride 106 mmol/L (98-107) 02/08/21 04:40 Carbon Dioxide 24.2 mmol/L (21-32) 02/08/21 04:40 BUN 22 mg/dL (7-18) H 02/08/21 04:40 Creatinine 0.66 mg/dL (0.55-1.02) 02/08/21 04:40 Est GFR (MDRD) Af Amer > 60 (>60) 02/08/21 04:40 Est GFR (MDRD) Non-Af > 60 (>60) 02/08/21 04:40 Glucose 92 mg/dL (65-99) 02/08/21 04:40 POC Glucose (mg/dL) 75 mg/dL (65-99) 02/08/21 11:54 Calcium 7.7 mg/dL (8.5-10.1) L 02/08/21 04:40 Corrected Calcium 9.0 mg/dL (8.5-10.1) 02/08/21 04:40 Magnesium 2.1 mg/dL (1.7-2.9) 02/08/21 04:40 Magnesium 2.1 mg/dL (1.7-2.9) 02/08/21 04:40 Total Bilirubin 0.40 mg/dL (0.2-1.0) 02/08/21 04:40 AST 34 Units/L (15-37) 02/08/21 04:40 ALT 24 Units/L (12-78) 02/08/21 04:40 Alkaline Phosphatase 64 Units/L (46-116) 02/08/21 04:40 Creatine Kinase 57 Units/L (26-192) 02/07/21 04:15 CK-MB (CK-2) 1.1 ng/mL (0-4.0) 02/07/21 04:15 CK/CKMB % Calc 1.9 % (<4) 02/07/21 04:15 Troponin I < 0.02 ng/mL (0-1.5) 02/07/21 04:15 B-Natriuretic Peptide 136 pg/mL (0-79) H 02/06/21 18:17 Total Protein 6.0 g/dL (6.4-8.2) L 02/08/21 04:40 Albumin 2.4 g/dL (3.4-5.0) L 02/08/21 04:40 Globulin 3.6 g/dL (2.5-4.5) 02/08/21 04:40 Albumin/Globulin Ratio 0.7 Ratio (1.1-2.1) L 02/08/21 04:40 Specimen Type Catherized urine 02/06/21 22:28 Urine Color Yellow (YELLOW) 02/06/21 22: Urine Appearance Clear (CLEAR) 02/06/21 22: Urine pH 5.0 (5.0 - 8.0) 02/06/21 22:28 Ur Specific [place] 1.010 (1.000-1.030) 02/06/21 22:28 Urine Protein 1+ (NEGATIVE) 02/06/21 22:28 Urine Glucose (UA) Negative (NEGATIVE) 02/06/21 22: Urine Ketones Negative (NEGATIVE) 02/06/21 22:28 Urine Occult Blood 3+ (NEGATIVE) 02/06/21 22:28 Urine Nitrite Negative (NEGATIVE) 02/06/21 22:28 Urine Bilirubin Negative (NEGATIVE) 02/06/21 22: Urine Urobilinogen Normal (NORMAL) 02/06/21 22:28 Ur Leukocyte Esterase Negative (NEGATIVE) 02/06/21 22:28 Urine RBC 3-5 /HPF (0-3) A 02/06/21 22:28 Urine WBC 0-2 /HPF (0-5) 02/06/21 22:28 Ur Squamous Epith Cells Negative /HPF (NEGATIVE) 02/06/21 22:28 Urine Bacteria Negative /HPF (NEGATIVE) 02/06/21 22:28 Ur Culture Indicated? Yes/culture set up 02/06/21 22:28 SARS CoV-2 RNA Rapid JOSE RAMON Negative (NEGATIVE) 02/06/21 22:28 - Plan (1) Pulmonary embolism Status: Acute Qualifiers: Pulmonary embolism type: unspecified Chronicity: acute Acute cor pulmonale presence: without acute cor pulmonale Qualified Code(s): I26.99 - Other pulmonary embolism without acute cor pulmonale Plan: LOVENOX 80MG SC BID, ROCEPHIN 1G IV DAILY, CARDIZEM DRIP, LASIX 20MG PO BID, LOPID 600MG PO DAILY, MEGACE 40MG PO BID, GLUCOPHAGE 500MG PO BID, ZOFRAN 4MG IV Q6H, POTASSIUM CHLORIDE 10MEQ PO BID, ZOCOR 20MG PO HS, AND MAXZIDE 37.5/25MG PO DAILY (2) Ascites, malignant Status: Chronic (3) Paroxysmal A-fib Status: Acute
[2021-02-08] MEDS: CARDIZEM INJ 125 MG VIAL 125 MG in NS 100 ML IV 100 ML IV PRN (16:22)
[2021-02-08] MEDS: GLUCOPHAGE PO SCH (16:42)
[2021-02-08] MEDS: ZOCOR TAB 20 MG PO SCH (21:20)
[2021-02-08] MEDS: NORVASC TAB 10 MG PO SCH (22:00)
[2021-02-09] MEDS: NS 1000 ML 1,000 ML IV SCH ×2 (03:22→18:05)
[2021-02-09 04:34] LABS: BASOPHILS # (AUTO) 0.1 X10^3/uL (0.0-0.1); BASOPHILS % (AUTO) 0.6 % (0.2-1.0); EOSINOPHILS # (AUTO) 0.2 x10^3/uL (0.0-0.2); HEMOGLOBIN 11.6 g/dL (12.0-16.0); LYMPHOCYTES # (AUTO) 0.9 X10^3/uL (1.3-2.9); LYMPHOCYTES % (AUTO) 9.7 % (21.0-51.0); MEAN CORPUSCULAR HEMOGLOBIN 26.8 pg (27.0-34.0); MEAN CORPUSCULAR HGB CONC 32.2 g/dL (33.0-35.0); MEAN CORPUSCULAR VOLUME 83.1 fL (80.0-100.0); MEAN PLATELET VOLUME 9.8 fL (7.4-11.0); MONOCYTES # (AUTO) 0.1 x10^3/uL (0.3-0.8); MONOCYTES % (AUTO) 1.1 % (0.0-13.0); NEUTROPHILS # (AUTO) 7.8 x10^3/uL (2.2-4.8); NEUTROPHILS % (AUTO) 86.6 % (42.0-75.0); PLATELET COUNT 201 X10^3/uL (150.0-450.0); RED BLOOD COUNT 4.33 X10^6/uL (3.5-5.4); WHITE BLOOD COUNT 9.1 X10^3/uL (3.6-10.0)
[2021-02-09] MEDS: CARDIZEM INJ 125 MG VIAL 125 MG in NS 100 ML IV 100 ML IV PRN (04:39)
[2021-02-09 04:44] LABS: ALANINE AMINOTRANSFERASE 36 Units/L (12-78); ALBUMIN 2.4 g/dL (3.4-5.0); ALKALINE PHOSPHATASE 67 Units/L (46-116); ASPARTATE AMINO TRANSFERASE 40 Units/L (15-37); BLOOD UREA NITROGEN 23 mg/dL (7-18); CALCIUM 8.2 mg/dL (8.5-10.1); CHLORIDE 104 mmol/L (98-107); COR CA(FOR HYPOALB) 9.5 mg/dL (8.5-10.1); COR NA(FOR HYPERGLY) 139 mmol/L (136-145); CREATININE 0.74 mg/dL (0.55-1.02); SODIUM 139 mmol/L (136-145); TOTAL PROTEIN 6.1 g/dL (6.4-8.2); eGFR NON BLACK RACES > 60 (>60)
[2021-02-09] MEDS: GLUCOPHAGE PO SCH ×2 (06:14→16:39)
[2021-02-09] MEDS: LOPID PO SCH (08:42)
[2021-02-09] MEDS: LASIX PO SCH ×2 (08:42→20:42)
[2021-02-09] MEDS: ZOFRAN INJ 4 MG VIAL IVP PRN ×2 (08:42→22:02)
[2021-02-09] MEDS: MICRO K EXTEN CAP 10 MEQ PO SCH ×2 (08:43→20:42)
[2021-02-09] MEDS: LOVENOX INJ 80 MG SYR SC SCH ×2 (08:43→20:42)
[2021-02-09] MEDS: MAXZIDE 37.5/25 MG PO SCH (08:43)
[2021-02-09] MEDS: MEGACE PO SCH ×2 (08:43→20:43)
[2021-02-09] MEDS: ROCEPHIN 1 GRAM IV PREMIX 1 G/50 ML IV.SOLN. IV SCH (08:43)
[2021-02-09] MEDS ORDERED: DILAUDID INJ IVP PRN (10:00)
[2021-02-09] MEDS ORDERED: NORCO 5/325 MG TAB PO PRN (10:25)
[2021-02-09] MEDS ORDERED: CARDIZEM CD 180 MG 24-HR PO SCH (11:00)
--- NOTE | 2021-02-09 11:19 | PCM.PROG ---
Progress Note - Progress Note for Day of Date of Exam: 02/09/21 - Subjective Subjective: WAS ADMITTED FOR TREATMENT OF PULMONARY EMBOLISM, MALIGNANT ASCITES, AND PAROXYSMAL A-FIB. SHE WAS STARTED ON A TREATMENT DOSE OF LOVENOX, A CARDIZEM DRIP, AND WAS CONSULTED FOR A PARACENTESIS. PARACENTESIS WAS PERFORMED MONDAY. A CATHETER WAS INSERTED AND ATTACHED TO A DRAINAGE BAG FOR FREE FLOW OF BLOODY ASCITES. ANTIBIOTICS WERE STARTED AFTER CYTOLOGY. PATIENT RECENTLY STARTED CHEMO FOR PERITONEAL CARCINOMATOSIS. SHE HAS A PMH OF COLON CANCER. SHE REPORTS THAT MASS WAS REMOVED IN 2004. SHE IS FOLLOWED BY IN [place], [place]. SHE REMAINS ON A CARDIZEM DRIP THIS MORNING. HER HEART RATE HAS BEEN WELL CONTROLLED. TODAY, SHE IS ALERT AND ORIENTED, LYING IN BED ON MORNING ROUNDS. SHE CONTINUES WITH COMPLAINTS OF WEAKNESS, SHORTNESS OF BREATH, AND ABDOMINAL DISCOMFORT. HER PULSE IS CONTROLLED WITH THE CARDIZEM AT THIS TIME. ON EXAMINATION, HEART IS REGULAR IN RATE AND RHYTHM. BILATERAL LUNGS ARE NOTED WITH DIMINISHED LUNG SOUNDS THROUGHOUT. DRAINAGE BAG NOTED TO BEDSIDE WITH BLOODY ABDOMINAL FLUID, DECREASED DRAINAGE SINCE YESTERDAY. ABDOMEN IS DISTENDED AND NOTED WITH DIFFUSE TENDERNESS. SWELLING DOES APPEAR TO HAVE DECREASED SINCE YESTERDAY. NORMAL BOWEL SOUNDS NOTED IN ALL QUADRANTS. HER VITALS THIS MORNING ARE: 97.7-96-22-96%-147/63. LABS WERE OBTAINED. ABNORMAL LAB VALUES INCLUDE THE FOLLOWING: HGB 11.6, BUN 23, GLUCOSE 114, CALCIUM 8.2, AST 40, TOTAL PROTEIN 6.1, ALBUMIN 2.4. URINE CULTURE IS PENDING. SHE IS CURRENTLY RECEIVING ROCEPHIN 1G IV DAILY, CARDIZEM DRIP, LOVENOX 80MG SC BID, LASIX 20MG PO BID, LOPID 600MG PO DAILY, MEGACE 40MG PO BID, GLUCOPHAGE 500MG PO BID, ZOFRAN 8MG IV Q4H, PHENERGAN 25MG IM Q6H PRN NAUSEA, POTASSIUM CHLORIDE 20MEQ PO BID, ZOCOR 20MG PO HS, AND MAXZIDE 37.5/25MG PO DAILY. TODAY, WE WILL START CARDIZEM CD 180MG PO DAILY, COUMADIN 5MG PO HS, AND DILAUDID 0.5MG IV Q2H PRN PAIN. WE WILL DISCONTINUE THE CARDIZEM DRIP. OTHERWISE, WE WILL CONTINUE WITH CURRENT PLAN OF CARE TODAY. TIME SPENT ON CLINICAL ASSESSMENT, REVIEWING LABS AND IMAGING, DECISION MAKING, AND DOCUMENTATION GREATER THAN 45 MINUTES. - Past Medical Family Social History Past Med/Fam/Surg Hx: No changes since H&P Allergies: Allergies No Known Drug Allergies Allergy (Verified 01/12/21 09:39) - Review of Systems ROS: No change since H&P - Vital Signs and I&O's Vital Signs: Temperature 97.7 F Pulse Rate [Left] 79 Pulse Rate 99 Respiratory Rate 22 Blood Pressure [Right Arm] 149/69 Blood Pressure 151/63 O2 Sat by Pulse Oximetry 96 Intake and Output: Intake & Output 02/06/21 02/07/21 02/08/21 02/09/21 11:59 11:59 11:59 11:59 Intake Total 676 / 676 1934 / 1934 1582 / 1582 Output Total 700 / 700 6100 / 6100 4035 / 4035 Balance -24 / -24 -4166 / -4166 -2453 / -2453 - Physical Exam Oriented: Normal Eyes: Normal Ear: Normal Nose: Normal Throat: Normal Respiratory: Normal, OTHER (positive for PE ) Cardiovascular: Normal : Normal Auscultation: Bowel Sounds: Decreased Palpation: Normal Tenderness: Normal, Diffuse, Mild (diffuse tenderness but soft distended abdomen with ascites ) Skin: Normal Musculoskeletal: Normal Psychiatric: Normal Mood Description: Calm Affect: Normal Speech Pattern: Clear, Appropriate - Laboratory and Diagnostics Result Diagrams: 02/09/21 04:05 02/09/21 04:05 Labs: 02/06/21 22:28 Urine,Catheterized Urine Culture - Final Laboratory WBC 9.1 X10^3/uL (3.6-10.0) 02/09/21 04:05 RBC 4.33 X10^6/uL (3.5-5.4) 02/09/21 04:05 Hgb 11.6 g/dL (12.0-16.0) L 02/09/21 04:05 Hct 36.0 % (36.0-47.0) 02/09/21 04:05 MCV 83.1 fL (80.0-100.0) 02/09/21 04:05 MCH 26.8 pg (27.0-34.0) L 02/09/21 04:05 MCHC 32.2 g/dL (33.0-35.0) L 02/09/21 04:05 RDW 15.0 % (11.6-16.5) 02/09/21 04:05 Plt Count 201 X10^3/uL (150.0-450.0) 02/09/21 04:05 Plt Count Comment Adequate (ADEQUATE) 02/08/21 04:40 MPV 9.8 fL (7.4-11.0) 02/09/21 04:05 Neut % (Auto) 86.6 % (42.0-75.0) H 02/09/21 04:05 Lymph % (Auto) 9.7 % (21.0-51.0) L 02/09/21 04:05 [place] % (Auto) 1.1 % (0.0-13.0) 02/09/21 04:05 Eos % (Auto) 2.0 % (0.9-2.9) 02/09/21 04:05 Baso % (Auto) 0.6 % (0.2-1.0) 02/09/21 04:05 Neut # (Auto) 7.8 x10^3/uL (2.2-4.8) H 02/09/21 04:05 Lymph # (Auto) 0.9 X10^3/uL (1.3-2.9) L 02/09/21 04:05 [place] # (Auto) 0.1 x10^3/uL (0.3-0.8) L 02/09/21 04:05 Eos # (Auto) 0.2 x10^3/uL (0.0-0.2) 02/09/21 04:05 Baso # (Auto) 0.1 X10^3/uL (0.0-0.1) 02/09/21 04:05 Absolute Nucleated RBC 0.0 /100WBC 02/09/21 04:05 Total Counted 100 02/08/21 04:40 Neutrophils % (Manual) 92 % (39-76) H 02/08/21 04:40 Lymphocytes % (Manual) 6 % (13-43) L 02/08/21 04:40 Monocytes % (Manual) 1 % (4-9) L 02/08/21 04:40 Eosinophils % (Manual) 1 % (0-6) 02/08/21 04:40 Plt Morphology Comment Normal (NORMAL) 02/08/21 04:40 RBC Morphology Normal (NORMAL) 02/08/21 04:40 PT 14.5 SECONDS (11.8-14.3) 02/09/21 10:18 INR Target Range - 02/09/21 10:18 INR 1.19 (0.8-1.3) 02/09/21 10:18 APTT 23.8 SECONDS (22.9-36.5) 02/06/21 18:17 PTT Comment - 02/06/21 18:17 D-Dimer 18.62 ug/ml (0.0-0.57) H* 02/06/21 18:17 Sodium 139 mmol/L (136-145) 02/09/21 04:05 Corrected Sodium 139 mmol/L (136-145) 02/09/21 04:05 Potassium 4.0 mmol/L (3.5-5.1) 02/09/21 04:05 Chloride 104 mmol/L (98-107) 02/09/21 04:05 Carbon Dioxide 25.0 mmol/L (21-32) 02/09/21 04:05 BUN 23 mg/dL (7-18) H 02/09/21 04:05 Creatinine 0.74 mg/dL (0.55-1.02) 02/09/21 04:05 Est GFR (MDRD) Af Amer > 60 (>60) 02/09/21 04:05 Est GFR (MDRD) Non-Af > 60 (>60) 02/09/21 04:05 Glucose 114 mg/dL (65-99) H 02/09/21 04:05 POC Glucose (mg/dL) 105 mg/dL (65-99) H 02/09/21 05:32 Calcium 8.2 mg/dL (8.5-10.1) L 02/09/21 04:05 Corrected Calcium 9.5 mg/dL (8.5-10.1) 02/09/21 04:05 Magnesium 2.1 mg/dL (1.7-2.9) 02/08/21 04:40 Magnesium 2.1 mg/dL (1.7-2.9) 02/08/21 04:40 Total Bilirubin 0.30 mg/dL (0.2-1.0) 02/09/21 04:05 AST 40 Units/L (15-37) H 02/09/21 04:05 ALT 36 Units/L (12-78) 02/09/21 04:05 Alkaline Phosphatase 67 Units/L (46-116) 02/09/21 04:05 Creatine Kinase 57 Units/L (26-192) 02/07/21 04:15 CK-MB (CK-2) 1.1 ng/mL (0-4.0) 02/07/21 04:15 CK/CKMB % Calc 1.9 % (<4) 02/07/21 04:15 Troponin I < 0.02 ng/mL (0-1.5) 02/07/21 04:15 B-Natriuretic Peptide 136 pg/mL (0-79) H 02/06/21 18:17 Total Protein 6.1 g/dL (6.4-8.2) L 02/09/21 04:05 Albumin 2.4 g/dL (3.4-5.0) L 02/09/21 04:05 Globulin 3.7 g/dL (2.5-4.5) 02/09/21 04:05 Albumin/Globulin Ratio 0.6 Ratio (1.1-2.1) L 02/09/21 04:05 Specimen Type Catherized urine 02/06/21 22:28 Urine Color Yellow (YELLOW) 02/06/21 22:28 Urine Appearance Clear (CLEAR) 02/06/21 22:28 Urine pH 5.0 (5.0 - 8.0) 02/06/21 22:28 Ur Specific [employer] 1.010 (1.000-1.030) 02/06/21 22:28 Urine Protein 1+ (NEGATIVE) 02/06/21 22:28 Urine Glucose (UA) Negative (NEGATIVE) 02/06/21 22:28 Urine Ketones Negative (NEGATIVE) 02/06/21 22: Urine Occult Blood 3+ (NEGATIVE) 02/06/21 22: Urine Nitrite Negative (NEGATIVE) 02/06/21 22:28 Urine Bilirubin Negative (NEGATIVE) 02/06/21 22: Urine Urobilinogen Normal (NORMAL) 02/06/21 22:28 Ur Leukocyte Esterase Negative (NEGATIVE) 02/06/21 22:28 Urine RBC 3-5 /HPF (0-3) A 02/06/21 22:28 Urine WBC 0-2 /HPF (0-5) 02/06/21 22:28 Ur Squamous Epith Cells Negative /HPF (NEGATIVE) 02/06/21 22:28 Urine Bacteria Negative /HPF (NEGATIVE) 02/06/21 22:28 Ur Culture Indicated? Yes/culture set up 02/06/21 22:28 SARS CoV-2 RNA Rapid JOSE RAMON Negative (NEGATIVE) 02/06/21 22:28 - Plan (1) Pulmonary embolism Status: Acute Qualifiers: Pulmonary embolism type: unspecified Chronicity: acute Acute cor pulmonale presence: without acute cor pulmonale Qualified Code(s): I26.99 - Other pulmonary embolism without acute cor pulmonale Plan: COUMADIN 5MG PO HS, ROCEPHIN 1G IV DAILY, CARDIZEM CD 180MG PO DAILY, LASIX 20MG PO BID, LOPID 600MG PO DAILY, MEGACE 40MG PO BID, GLUCOPHAGE 500MG PO BID, ZOFRAN 4MG IV Q6H, POTASSIUM CHLORIDE 10MEQ PO BID, ZOCOR 20MG PO HS, AND MAXZIDE 37.5/25MG PO DAILY (2) Ascites, malignant Status: Chronic Plan: General surgery consulted for paracentesis (3) Paroxysmal A-fib Status: Acute Plan: cardizem gtt wean as tolerated
--- NOTE | 2021-02-09 15:44 | DR.PROGNOT ---
Hospital Progress Notes - Progress Note for Day of: Progress Note Date: 02/09/21 - Chief Complaint Chief Complaint: only mild abdominal pain .. less SOB . s/p paracentesis and drainage . still having bloody ascites .last shift 700 cc . lytes normal .BUN/Creat 23/0.7 - Past Medical Family Social History Past Med/Fam/Surg Hx: No changes since H&P Allergies: Allergies No Known Drug Allergies Allergy (Verified 01/12/21 09:39) - Review Of Systems ROS: No change since H&P - Vital Signs Vital Signs: Temperature 97.8 F Pulse Rate [Left] 79 Pulse Rate 95 Respiratory Rate 22 Blood Pressure [Right Arm] 149/69 Blood Pressure 152/68 O2 Sat by Pulse Oximetry 98 - Physical Exam Oriented: Normal Eyes: Normal Ear: Normal Nose: Normal Throat: Normal Respiratory: Normal, OTHER (positive for PE ) Cardiovascular: Normal : Normal GI:Auscultation: Decreased GI:Palpation: Normal GI: Tenderness: Normal, Diffuse, Mild (diffuse tenderness but soft distended abdomen with ascites ) Skin: Normal Musculoskeletal: Normal Psychiatric: Normal Mood Description: Calm Affect: Normal Speech Pattern: Clear, Appropriate - Laboratory and Diagnostics Result Diagrams: 02/09/21 04:05 02/09/21 04:05 Labs: 02/06/21 22:28 Urine,Catheterized Urine Culture - Final Laboratory WBC 9.1 X10^3/uL (3.6-10.0) 02/09/21 04:05 RBC 4.33 X10^6/uL (3.5-5.4) 02/09/21 04:05 Hgb 11.6 g/dL (12.0-16.0) L 02/09/21 04:05 Hct 36.0 % (36.0-47.0) 02/09/21 04:05 MCV 83.1 fL (80.0-100.0) 02/09/21 04:05 MCH 26.8 pg (27.0-34.0) L 02/09/21 04:05 MCHC 32.2 g/dL (33.0-35.0) L 02/09/21 04:05 RDW 15.0 % (11.6-16.5) 02/09/21 04:05 Plt Count 201 X10^3/uL (150.0-450.0) 02/09/21 04:05 Plt Count Comment Adequate (ADEQUATE) 02/08/21 04:40 MPV 9.8 fL (7.4-11.0) 02/09/21 04:05 Neut % (Auto) 86.6 % (42.0-75.0) H 02/09/21 04:05 Lymph % (Auto) 9.7 % (21.0-51.0) L 02/09/21 04:05 [place] % (Auto) 1.1 % (0.0-13.0) 02/09/21 04:05 Eos % (Auto) 2.0 % (0.9-2.9) 02/09/21 04:05 Baso % (Auto) 0.6 % (0.2-1.0) 02/09/21 04:05 Neut # (Auto) 7.8 x10^3/uL (2.2-4.8) H 02/09/21 04:05 Lymph # (Auto) 0.9 X10^3/uL (1.3-2.9) L 02/09/21 04:05 [place] # (Auto) 0.1 x10^3/uL (0.3-0.8) L 02/09/21 04:05 Eos # (Auto) 0.2 x10^3/uL (0.0-0.2) 02/09/21 04:05 Baso # (Auto) 0.1 X10^3/uL (0.0-0.1) 02/09/21 04:05 Absolute Nucleated RBC 0.0 /100WBC 02/09/21 04:05 Total Counted 100 02/08/21 04:40 Neutrophils % (Manual) 92 % (39-76) H 02/08/21 04:40 Lymphocytes % (Manual) 6 % (13-43) L 02/08/21 04:40 Monocytes % (Manual) 1 % (4-9) L 02/08/21 04:40 Eosinophils % (Manual) 1 % (0-6) 02/08/21 04:40 Plt Morphology Comment Normal (NORMAL) 02/08/21 04:40 RBC Morphology Normal (NORMAL) 02/08/21 04:40 PT 14.5 SECONDS (11.8-14.3) 02/09/21 10:18 INR Target Range - 02/09/21 10:18 INR 1.19 (0.8-1.3) 02/09/21 10:18 APTT 23.8 SECONDS (22.9-36.5) 02/06/21 18:17 PTT Comment - 02/06/21 18:17 D-Dimer 18.62 ug/ml (0.0-0.57) H* 02/06/21 18:17 Sodium 139 mmol/L (136-145) 02/09/21 04:05 Corrected Sodium 139 mmol/L (136-145) 02/09/21 04:05 Potassium 4.0 mmol/L (3.5-5.1) 02/09/21 04:05 Chloride 104 mmol/L (98-107) 02/09/21 04:05 Carbon Dioxide 25.0 mmol/L (21-32) 02/09/21 04:05 BUN 23 mg/dL (7-18) H 02/09/21 04:05 Creatinine 0.74 mg/dL (0.55-1.02) 02/09/21 04:05 Est GFR (MDRD) Af Amer > 60 (>60) 02/09/21 04:05 Est GFR (MDRD) Non-Af > 60 (>60) 02/09/21 04:05 Glucose 114 mg/dL (65-99) H 02/09/21 04:05 POC Glucose (mg/dL) 130 mg/dL (65-99) H 02/09/21 11:57 Calcium 8.2 mg/dL (8.5-10.1) L 02/09/21 04:05 Corrected Calcium 9.5 mg/dL (8.5-10.1) 02/09/21 04:05 Magnesium 2.1 mg/dL (1.7-2.9) 02/08/21 04:40 Magnesium 2.1 mg/dL (1.7-2.9) 02/08/21 04:40 Total Bilirubin 0.30 mg/dL (0.2-1.0) 02/09/21 04:05 AST 40 Units/L (15-37) H 02/09/21 04:05 ALT 36 Units/L (12-78) 02/09/21 04:05 Alkaline Phosphatase 67 Units/L (46-116) 02/09/21 04:05 Creatine Kinase 57 Units/L (26-192) 02/07/21 04:15 CK-MB (CK-2) 1.1 ng/mL (0-4.0) 02/07/21 04:15 CK/CKMB % Calc 1.9 % (<4) 02/07/21 04:15 Troponin I < 0.02 ng/mL (0-1.5) 02/07/21 04:15 B-Natriuretic Peptide 136 pg/mL (0-79) H 02/06/21 18:17 Total Protein 6.1 g/dL (6.4-8.2) L 02/09/21 04:05 Albumin 2.4 g/dL (3.4-5.0) L 02/09/21 04:05 Globulin 3.7 g/dL (2.5-4.5) 02/09/21 04:05 Albumin/Globulin Ratio 0.6 Ratio (1.1-2.1) L 02/09/21 04:05 Specimen Type Catherized urine 02/06/21 22:28 Urine Color Yellow (YELLOW) 02/06/21 22:28 Urine Appearance Clear (CLEAR) 02/06/21 22:28 Urine pH 5.0 (5.0 - 8.0) 02/06/21 22:28 Ur Specific [place] 1.010 (1.000-1.030) 02/06/21 22:28 Urine Protein 1+ (NEGATIVE) 02/06/21 22:28 Urine Glucose (UA) Negative (NEGATIVE) 02/06/21 22:28 Urine Ketones Negative (NEGATIVE) 02/06/21 22:28 Urine Occult Blood 3+ (NEGATIVE) 02/06/21 22:28 Urine Nitrite Negative (NEGATIVE) 02/06/21 22:28 Urine Bilirubin Negative (NEGATIVE) 02/06/21 22:28 Urine Urobilinogen Normal (NORMAL) 02/06/21 22: Ur Leukocyte Esterase Negative (NEGATIVE) 02/06/21 22:28 Urine RBC 3-5 /HPF (0-3) A 02/06/21 22:28 Urine WBC 0-2 /HPF (0-5) 02/06/21 22:28 Ur Squamous Epith Cells Negative /HPF (NEGATIVE) 02/06/21 22:28 Urine Bacteria Negative /HPF (NEGATIVE) 02/06/21 22:28 Ur Culture Indicated? Yes/culture set up 02/06/21 22:28 SARS CoV-2 RNA Rapid JOSE RAMON Negative (NEGATIVE) 02/06/21 22:28 - Assessment and Plan 1: PE on anticoagulants . malignant ascites .s/p paracentesis .. ovarian cancer .with mets . to remove the drainage catheter . same chemo Tx as out Pt when medically stable .. - Problem Patient Problems: Patient Problems Abdominal ascites (Acute) R18.8 Regular sinus tachycardia (Acute) R00.0 Paroxysmal A-fib (Acute) I48.0 Colon cancer (Acute) C18.9 Pulmonary embolism (Acute) I26.99 Ascites, malignant (Chronic) R18.0
[2021-02-09] MEDS ORDERED: BUTT CREAM (COMPOUND) TOP PRN (16:35)
[2021-02-09] MEDS: MYLICON TAB 80 MG CHEW PO PRN (17:45)
[2021-02-09 19:49] LABS: CRYPTOSPORIDIUM PARVUM ANTIGEN NEGATIVE (NEGATIVE); GIARDIA LAMBLIA ANTIGEN NEGATIVE (NEGATIVE)
[2021-02-09] MEDS: ZOCOR TAB 20 MG PO SCH (20:42)
[2021-02-09] MEDS: COUMADIN TAB 5 MG (JANTOVEN) PO SCH (20:43)
[2021-02-09] MEDS ORDERED: IMODIUM CAP 2 MG PO PRN (21:11)
[2021-02-09] MEDS: IMODIUM CAP 2 MG PO PRN (21:43)
[2021-02-10 04:56] LABS: BASOPHILS # (AUTO) 0.1 X10^3/uL (0.0-0.1); EOSINOPHILS # (AUTO) 0.1 x10^3/uL (0.0-0.2); EOSINOPHILS % (AUTO) 2.6 % (0.9-2.9); HEMATOCRIT 37.6 % (36.0-47.0); HEMOGLOBIN 12.2 g/dL (12.0-16.0); LYMPHOCYTES # (AUTO) 1.1 X10^3/uL (1.3-2.9); LYMPHOCYTES % (AUTO) 20.5 % (21.0-51.0); MEAN CORPUSCULAR HEMOGLOBIN 26.9 pg (27.0-34.0); MEAN CORPUSCULAR HGB CONC 32.5 g/dL (33.0-35.0); MEAN CORPUSCULAR VOLUME 82.9 fL (80.0-100.0); MEAN PLATELET VOLUME 10.1 fL (7.4-11.0); MONOCYTES # (AUTO) 0.1 x10^3/uL (0.3-0.8); MONOCYTES % (AUTO) 2.2 % (0.0-13.0); NEUTROPHILS # (AUTO) 3.8 x10^3/uL (2.2-4.8); NEUTROPHILS % (AUTO) 73.7 % (42.0-75.0); PLATELET COUNT 202 X10^3/uL (150.0-450.0); RED BLOOD COUNT 4.53 X10^6/uL (3.5-5.4); RED CELL DISTRIBUTION WIDTH 14.7 % (11.6-16.5); WHITE BLOOD COUNT 5.2 X10^3/uL (3.6-10.0)
[2021-02-10 05:09] LABS: ALANINE AMINOTRANSFERASE 34 Units/L (12-78); ALBUMIN 2.5 g/dL (3.4-5.0); ALKALINE PHOSPHATASE 70 Units/L (46-116); ASPARTATE AMINO TRANSFERASE 31 Units/L (15-37); BLOOD UREA NITROGEN 28 mg/dL (7-18); CALCIUM 8.4 mg/dL (8.5-10.1); CHLORIDE 103 mmol/L (98-107); COR CA(FOR HYPOALB) 9.6 mg/dL (8.5-10.1); COR NA(FOR HYPERGLY) 139 mmol/L (136-145); CREATININE 0.93 mg/dL (0.55-1.02); SODIUM 138 mmol/L (136-145); TOTAL PROTEIN 6.4 g/dL (6.4-8.2); eGFR NON BLACK RACES > 60 (>60)
[2021-02-10] MEDS: ZOFRAN INJ 4 MG VIAL IVP PRN ×3 (05:18→19:09)
[2021-02-10] MEDS: NS 1000 ML 1,000 ML IV SCH ×2 (08:08→19:18)
[2021-02-10] MEDS: LASIX PO SCH ×2 (09:00→20:12)
[2021-02-10] MEDS: MEGACE PO SCH ×2 (09:01→20:12)
[2021-02-10] MEDS: MAXZIDE 37.5/25 MG PO SCH (09:01)
[2021-02-10] MEDS: LOPID PO SCH (09:02)
[2021-02-10] MEDS: MICRO K EXTEN CAP 10 MEQ PO SCH ×2 (09:02→20:13)
[2021-02-10] MEDS: ROCEPHIN 1 GRAM IV PREMIX 1 G/50 ML IV.SOLN. IV SCH (09:03)
[2021-02-10] MEDS: LOVENOX INJ 80 MG SYR SC SCH ×2 (09:03→20:28)
[2021-02-10] MEDS: CARDIZEM CD 240 MG 24-HR PO SCH (09:29)
[2021-02-10] MEDS: GLUCOPHAGE PO SCH ×2 (09:29→17:12)
[2021-02-10] MEDS: PHENERGAN INJ 25 MG IM PRN (09:33)
--- NOTE | 2021-02-10 11:38 | PCM.PROG ---
Progress Note - Progress Note for Day of Date of Exam: 02/10/21 - Subjective Subjective: WAS ADMITTED FOR TREATMENT OF PULMONARY EMBOLISM, MALIGNANT ASCITES, AND PAROXYSMAL A-FIB. SHE WAS STARTED ON A TREATMENT DOSE OF LOVENOX, A CARDIZEM DRIP, AND WAS CONSULTED FOR A PARACENTESIS. DRAIN WAS REMOVED YESTERDAY. PATIENT RECENTLY STARTED CHEMO FOR PERITONEAL CARCINOMATOSIS. SHE HAS A PMH OF COLON CANCER. SHE REPORTS THAT MASS WAS REMOVED IN 2004. SHE IS FOLLOWED BY IN [place], [place]. SHE WAS CONVERTED TO PO CARDIZEM YESTERDAY. HER HEART RATE HAS BEEN 100-115 BPM THROUGHOUT THE NIGHT. TODAY, SHE IS ALERT AND ORIENTED, LYING IN BED ON MORNING ROUNDS. SHE CONTINUES WITH COMPLAINTS OF WEAKNESS, SHORTNESS OF BREATH, AND ABDOMINAL DISCOMFORT. ON EXAMI [facility], [place], SHE IS SLIGHTLY TACHYCARDIC WITH HR 112. BILATERAL LUNGS ARE NOTED WITH DIMINISHED LUNG SOUNDS THROUGHOUT. ABDOMEN IS DISTENDED AND NOTED WITH DIFFUSE TENDERNESS. SWELLING DOES APPEAR TO HAVE DECREASED SINCE YESTERDAY. NORMAL BOWEL SOUNDS NOTED IN ALL QUADRANTS. HER VITALS THIS MORNING ARE: 97.4-112-28-97%-156/72. LABS WERE OBTAINED. ABNORMAL LAB VALUES INCLUDE THE FOLLOWING: - Past Medical Family Social History Past Med/Fam/Surg Hx: No changes since H&P Allergies: Allergies No Known Drug Allergies Allergy (Verified 01/12/21 09:39) - Review of Systems ROS: No change since H&P - Vital Signs and I&O's Vital Signs: Temperature 97.4 F Pulse Rate [Left] 79 Pulse Rate 108 Respiratory Rate 23 Blood Pressure [Right Arm] 149/69 Blood Pressure 144/63 O2 Sat by Pulse Oximetry 97 Intake and Output: Intake & Output 02/07/21 02/08/21 02/09/21 02/10/21 11:59 11:59 11:59 11:59 Intake Total 676 / 676 1934 / 1934 1582 / 1582 1050 / 1050 Output Total 700 / 700 6100 / 6100 4035 / 4035 2500 / 2500 Balance -24 / -24 -4166 / -4166 -2453 / -2453 -1450 / -1450 - Physical Exam Oriented: Normal Eyes: Normal Ear: Normal Nose: Normal Throat: Normal Respiratory: Normal, OTHER (positive for PE ) Cardiovascular: Normal : Normal Auscultation: Bowel Sounds: Decreased Tenderness: Normal, Diffuse, Mild (diffuse tenderness but soft distended abdomen with ascites ) Skin: Normal Musculoskeletal: Normal Psychiatric: Normal Mood Description: Calm Affect: Normal Speech Pattern: Clear, Appropriate - Laboratory and Diagnostics Result Diagrams: 02/10/21 04:05 02/10/21 04:05 Labs: 02/06/21 22:28 Urine,Catheterized Urine Culture - Final Laboratory WBC 5.2 X10^3/uL (3.6-10.0) 02/10/21 04:05 RBC 4.53 X10^6/uL (3.5-5.4) 02/10/21 04:05 Hgb 12.2 g/dL (12.0-16.0) 02/10/21 04:05 Hct 37.6 % (36.0-47.0) 02/10/21 04:05 MCV 82.9 fL (80.0-100.0) 02/10/21 04:05 MCH 26.9 pg (27.0-34.0) L 02/10/21 04:05 MCHC 32.5 g/dL (33.0-35.0) L 02/10/21 04:05 RDW 14.7 % (11.6-16.5) 02/10/21 04:05 Plt Count 202 X10^3/uL (150.0-450.0) 02/10/21 04:05 Plt Count Comment Adequate (ADEQUATE) 02/08/21 04:40 MPV 10.1 fL (7.4-11.0) 02/10/21 04:05 Neut % (Auto) 73.7 % (42.0-75.0) 02/10/21 04:05 Lymph % (Auto) 20.5 % (21.0-51.0) L 02/10/21 04:05 [place] % (Auto) 2.2 % (0.0-13.0) 02/10/21 04:05 Eos % (Auto) 2.6 % (0.9-2.9) 02/10/21 04:05 Baso % (Auto) 1.0 % (0.2-1.0) 02/10/21 04:05 Neut # (Auto) 3.8 x10^3/uL (2.2-4.8) 02/10/21 04:05 Lymph # (Auto) 1.1 X10^3/uL (1.3-2.9) L 02/10/21 04:05 [place] # (Auto) 0.1 x10^3/uL (0.3-0.8) L 02/10/21 04:05 Eos # (Auto) 0.1 x10^3/uL (0.0-0.2) 02/10/21 04:05 Baso # (Auto) 0.1 X10^3/uL (0.0-0.1) 02/10/21 04:05 Absolute Nucleated RBC 0.0 /100WBC 02/10/21 04:05 Total Counted 100 02/08/21 04:40 Neutrophils % (Manual) 92 % (39-76) H 02/08/21 04:40 Lymphocytes % (Manual) 6 % (13-43) L 02/08/21 04:40 Monocytes % (Manual) 1 % (4-9) L 02/08/21 04:40 Eosinophils % (Manual) 1 % (0-6) 02/08/21 04:40 Plt Morphology Comment Normal (NORMAL) 02/08/21 04:40 RBC Morphology Normal (NORMAL) 02/08/21 04:40 PT 14.5 SECONDS (11.8-14.3) 02/10/21 04:05 INR Target Range - 02/10/21 04:05 INR 1.18 (0.8-1.3) 02/10/21 04:05 APTT 23.8 SECONDS (22.9-36.5) 02/06/21 18:17 PTT Comment - 02/06/21 18:17 D-Dimer 18.62 ug/ml (0.0-0.57) H* 02/06/21 18:17 Sodium 138 mmol/L (136-145) 02/10/21 04:05 Corrected Sodium 139 mmol/L (136-145) 02/10/21 04:05 Potassium 4.4 mmol/L (3.5-5.1) 02/10/21 04:05 Chloride 103 mmol/L (98-107) 02/10/21 04:05 Carbon Dioxide 23.0 mmol/L (21-32) 02/10/21 04:05 BUN 28 mg/dL (7-18) H 02/10/21 04:05 Creatinine 0.93 mg/dL (0.55-1.02) 02/10/21 04:05 Est GFR (MDRD) Af Amer > 60 (>60) 02/10/21 04:05 Est GFR (MDRD) Non-Af > 60 (>60) 02/10/21 04:05 Glucose 124 mg/dL (65-99) H 02/10/21 04:05 POC Glucose (mg/dL) 136 mg/dL (65-99) H 02/09/21 20:12 Calcium 8.4 mg/dL (8.5-10.1) L 02/10/21 04:05 Corrected Calcium 9.6 mg/dL (8.5-10.1) 02/10/21 04:05 Magnesium 2.1 mg/dL (1.7-2.9) 02/08/21 04:40 Magnesium 2.1 mg/dL (1.7-2.9) 02/08/21 04:40 Total Bilirubin 0.30 mg/dL (0.2-1.0) 02/10/21 04:05 AST 31 Units/L (15-37) 02/10/21 04:05 ALT 34 Units/L (12-78) 02/10/21 04:05 Alkaline Phosphatase 70 Units/L (46-116) 02/10/21 04:05 Creatine Kinase 57 Units/L (26-192) 02/07/21 04:15 CK-MB (CK-2) 1.1 ng/mL (0-4.0) 02/07/21 04:15 CK/CKMB % Calc 1.9 % (<4) 02/07/21 04:15 Troponin I < 0.02 ng/mL (0-1.5) 02/07/21 04:15 B-Natriuretic Peptide 136 pg/mL (0-79) H 02/06/21 18:17 Total Protein 6.4 g/dL (6.4-8.2) 02/10/21 04:05 Albumin 2.5 g/dL (3.4-5.0) L 02/10/21 04:05 Globulin 3.9 g/dL (2.5-4.5) 02/10/21 04:05 Albumin/Globulin Ratio 0.6 Ratio (1.1-2.1) L 02/10/21 04:05 Specimen Type Catherized urine 02/06/21 22:28 Urine Color Yellow (YELLOW) 02/06/21 22:28 Urine Appearance Clear (CLEAR) 02/06/21 22:28 Urine pH 5.0 (5.0 - 8.0) 02/06/21 22:28 Ur Specific [place] 1.010 (1.000-1.030) 02/06/21 22:28 Urine Protein 1+ (NEGATIVE) 02/06/21 22:28 Urine Glucose (UA) Negative (NEGATIVE) 02/06/21 22: Urine Ketones Negative (NEGATIVE) 02/06/21 22: Urine Occult Blood 3+ (NEGATIVE) 02/06/21 22: Urine Nitrite Negative (NEGATIVE) 02/06/21 22: Urine Bilirubin Negative (NEGATIVE) 02/06/21 22:28 Urine Urobilinogen Normal (NORMAL) 02/06/21 22:28 Ur Leukocyte Esterase Negative (NEGATIVE) 02/06/21 22:28 Urine RBC 3-5 /HPF (0-3) A 02/06/21 22:28 Urine WBC 0-2 /HPF (0-5) 02/06/21 22:28 Ur Squamous Epith Cells Negative /HPF (NEGATIVE) 02/06/21 22:28 Urine Bacteria Negative /HPF (NEGATIVE) 02/06/21 22:28 Ur Culture Indicated? Yes/culture set up 02/06/21 22:28 Stool Description 100g arce unformed 02/09/21 18:50 Stool Description 100g arce unformed 02/09/21 18:50 Stl Occult Blood (IFOB) Positive (NEGATIVE) A 02/09/21 18:50 Stool for White Cells Positive (NEGATIVE) A 02/09/21 18:50 Stl C. diff Tox B Gene Negative (NEGATIVE) 02/09/21 18:50 Stl C. diff [id number] Presumptive negative (NEGATIVE) 02/09/21 18:50 Cryptosporid parvum Ag Negative (NEGATIVE) 02/09/21 18:50 Giardia lamblia Ag Negative (NEGATIVE) 02/09/21 18:50 SARS CoV-2 RNA Rapid JOSE RAMON Negative (NEGATIVE) 05/01/21 22:28 - Plan (1) Pulmonary embolism Status: Acute Qualifiers: Pulmonary embolism type: unspecified Chronicity: acute Acute cor pulmonale presence: without acute cor pulmonale Qualified Code(s): I26.99 - Other pulmonary embolism without acute cor pulmonale Plan: COUMADIN 5MG PO HS, ROCEPHIN 1G IV DAILY, CARDIZEM CD 180MG PO DAILY, LASIX 20MG PO BID, LOPID 600MG PO DAILY, MEGACE 40MG PO BID, GLUCOPHAGE 500MG PO BID, ZOFRAN 4MG IV Q6H, POTASSIUM CHLORIDE 10MEQ PO BID, ZOCOR 20MG PO HS, AND MAXZIDE 37.5/25MG PO DAILY (2) Ascites, malignant Status: Chronic Plan: General surgery consulted for paracentesis (3) Paroxysmal A-fib Status: Acute Plan: cardizem gtt wean as tolerated
--- NOTE | 2021-02-10 13:46 | PCM.PROG ---
Progress Note - Progress Note for Day of Date of Exam: 02/10/21 - Subjective Subjective: WAS ADMITTED FOR TREATMENT OF PULMONARY EMBOLISM, MALIGNANT ASCITES, AND PAROXYSMAL A-FIB. SHE WAS STARTED ON A TREATMENT DOSE OF LOVENOX, A CARDIZEM DRIP, AND WAS CONSULTED FOR A PARACENTESIS. DRAIN WAS REMOVED YESTERDAY. PATIENT RECENTLY STARTED CHEMO FOR PERITONEAL CARCINOMATOSIS. SHE HAS A PMH OF COLON CANCER. SHE REPORTS THAT MASS WAS REMOVED IN 2004. SHE IS FOLLOWED BY IN [place], [place]. SHE WAS CONVERTED TO PO CARDIZEM YESTERDAY. HER HEART RATE HAS BEEN 100-115 BPM THROUGHOUT THE NIGHT. TODAY, SHE IS ALERT AND ORIENTED, LYING IN BED ON MORNING ROUNDS. SHE CONTINUES WITH COMPLAINTS OF WEAKNESS, SHORTNESS OF BREATH, AND ABDOMINAL DISCOMFORT. ON EXAMI [facility], SHE IS SLIGHTLY TACHYCARDIC WITH HR 112. BILATERAL LUNGS ARE NOTED WITH DIMINISHED LUNG SOUNDS THROUGHOUT. ABDOMEN IS DISTENDED AND NOTED WITH DIFFUSE TENDERNESS. SWELLING DOES APPEAR TO HAVE DECREASED SINCE YESTERDAY. NORMAL BOWEL SOUNDS NOTED IN ALL QUADRANTS. HER VITALS THIS MORNING ARE: 97.4-112-28-97%-156/72. LABS WERE OBTAINED. ABNORMAL LAB VALUES INCLUDE THE FOLLOWING: BUN 28, GLUCOSE 124, CALCIUM 8.4, ALBUMIN 2.5. URINE CULTURE IS PENDING. SHE IS CURRENTLY RECEIVING ROCEPHIN 1G IV DAILY, CARDIZEM CD 180MG PO DAILY, COUMADIN 5MG PO HS, LOVENOX 80MG SC BID, LASIX 20MG PO BID, LOPID 600MG PO DAILY, MEGACE 40MG PO BID, GLUCOPHAGE 500MG PO BID, ZOFRAN 8MG IV Q4H, PHENERGAN 25MG IM Q6H PRN NAUSEA, DILAUDID 0.5MG IV Q2H PRN PAIN, POTASSIUM CHLORIDE 20MEQ PO BID, ZOCOR 20MG PO HS, AND MAXZIDE 37.5/25MG PO DAILY. TODAY, WE WILL INCREASE CARDIZEM TO 240MG PO DAILY. OTHERWISE, WE WILL CONTINUE WITH CURRENT PLAN OF CARE TODAY. TIME SPENT ON CLINICAL ASSESSMENT, REVIEWING LABS AND IMAGING, DECISION MAKING, AND DOCUMENTATION GREATER THAN 45 MINUTES. - Past Medical Family Social History Past Med/Fam/Surg Hx: No changes since H&P Allergies: Allergies No Known Drug Allergies Allergy (Verified 01/12/21 09:39) - Review of Systems ROS: No change since H&P - Vital Signs and I&O's Vital Signs: Temperature 97.4 F Pulse Rate [Left] 79 Pulse Rate 113 Respiratory Rate 31 Blood Pressure [Right Arm] 149/69 Blood Pressure 148/70 O2 Sat by Pulse Oximetry 96 Intake and Output: Intake & Output 02/08/21 02/09/21 02/10/21 02/11/21 11:59 11:59 11:59 11:59 Intake Total 1934 / 1934 1582 / 1582 1050 / 1050 Output Total 6100 / 6100 4035 / 4035 2500 / 2500 Balance -4166 / -4166 -2453 / -2453 -1450 / -1450 - Physical Exam Oriented: Normal Eyes: Normal Ear: Normal Nose: Normal Throat: Normal Respiratory: Normal, OTHER (positive for PE ) Cardiovascular: Normal : Normal Auscultation: Bowel Sounds: Decreased Tenderness: Normal, Diffuse, Mild (diffuse tenderness but soft distended abdomen with ascites ) Skin: Normal Musculoskeletal: Normal Psychiatric: Normal Mood Description: Calm Affect: Normal Speech Pattern: Clear, Appropriate - Laboratory and Diagnostics Result Diagrams: 02/10/21 04:05 02/10/21 04:05 Labs: 02/06/21 22:28 Urine,Catheterized Urine Culture - Final Laboratory WBC 5.2 X10^3/uL (3.6-10.0) 02/10/21 04:05 RBC 4.53 X10^6/uL (3.5-5.4) 02/10/21 04:05 Hgb 12.2 g/dL (12.0-16.0) 02/10/21 04:05 Hct 37.6 % (36.0-47.0) 02/10/21 04:05 MCV 82.9 fL (80.0-100.0) 02/10/21 04:05 MCH 26.9 pg (27.0-34.0) L 02/10/21 04:05 MCHC 32.5 g/dL (33.0-35.0) L 02/10/21 04:05 RDW 14.7 % (11.6-16.5) 02/10/21 04:05 Plt Count 202 X10^3/uL (150.0-450.0) 02/10/21 04:05 Plt Count Comment Adequate (ADEQUATE) 02/08/21 04:40 MPV 10.1 fL (7.4-11.0) 02/10/21 04:05 Neut % (Auto) 73.7 % (42.0-75.0) 02/10/21 04:05 Lymph % (Auto) 20.5 % (21.0-51.0) L 02/10/21 04:05 [place] % (Auto) 2.2 % (0.0-13.0) 02/10/21 04:05 Eos % (Auto) 2.6 % (0.9-2.9) 02/10/21 04:05 Baso % (Auto) 1.0 % (0.2-1.0) 02/10/21 04:05 Neut # (Auto) 3.8 x10^3/uL (2.2-4.8) 02/10/21 04:05 Lymph # (Auto) 1.1 X10^3/uL (1.3-2.9) L 02/10/21 04:05 [place] # (Auto) 0.1 x10^3/uL (0.3-0.8) L 02/10/21 04:05 Eos # (Auto) 0.1 x10^3/uL (0.0-0.2) 02/10/21 04:05 Baso # (Auto) 0.1 X10^3/uL (0.0-0.1) 02/10/21 04:05 Absolute Nucleated RBC 0.0 /100WBC 02/10/21 04:05 Total Counted 100 02/08/21 04:40 Neutrophils % (Manual) 92 % (39-76) H 02/08/21 04:40 Lymphocytes % (Manual) 6 % (13-43) L 02/08/21 04:40 Monocytes % (Manual) 1 % (4-9) L 02/08/21 04:40 Eosinophils % (Manual) 1 % (0-6) 02/08/21 04:40 Plt Morphology Comment Normal (NORMAL) 02/08/21 04:40 RBC Morphology Normal (NORMAL) 02/08/21 04:40 PT 14.5 SECONDS (11.8-14.3) 02/10/21 04:05 INR Target Range - 02/10/21 04:05 INR 1.18 (0.8-1.3) 02/10/21 04:05 APTT 23.8 SECONDS (22.9-36.5) 02/06/21 18:17 PTT Comment - 02/06/21 18:17 D-Dimer 18.62 ug/ml (0.0-0.57) H* 02/06/21 18:17 Sodium 138 mmol/L (136-145) 02/10/21 04:05 Corrected Sodium 139 mmol/L (136-145) 02/10/21 04:05 Potassium 4.4 mmol/L (3.5-5.1) 02/10/21 04:05 Chloride 103 mmol/L (98-107) 02/10/21 04:05 Carbon Dioxide 23.0 mmol/L (21-32) 02/10/21 04:05 BUN 28 mg/dL (7-18) H 02/10/21 04:05 Creatinine 0.93 mg/dL (0.55-1.02) 02/10/21 04:05 Est GFR (MDRD) Af Amer > 60 (>60) 02/10/21 04:05 Est GFR (MDRD) Non-Af > 60 (>60) 02/10/21 04:05 Glucose 124 mg/dL (65-99) H 02/10/21 04:05 POC Glucose (mg/dL) 106 mg/dL (65-99) H 02/10/21 11:51 Calcium 8.4 mg/dL (8.5-10.1) L 02/10/21 04:05 Corrected Calcium 9.6 mg/dL (8.5-10.1) 02/10/21 04:05 Magnesium 2.1 mg/dL (1.7-2.9) 02/08/21 04:40 Magnesium 2.1 mg/dL (1.7-2.9) 02/08/21 04:40 Total Bilirubin 0.30 mg/dL (0.2-1.0) 02/10/21 04:05 AST 31 Units/L (15-37) 02/10/21 04:05 ALT 34 Units/L (12-78) 02/10/21 04:05 Alkaline Phosphatase 70 Units/L (46-116) 02/10/21 04:05 Creatine Kinase 57 Units/L (26-192) 02/07/21 04:15 CK-MB (CK-2) 1.1 ng/mL (0-4.0) 02/07/21 04:15 CK/CKMB % Calc 1.9 % (<4) 02/07/21 04:15 Troponin I < 0.02 ng/mL (0-1.5) 02/07/21 04:15 B-Natriuretic Peptide 136 pg/mL (0-79) H 02/06/21 18:17 Total Protein 6.4 g/dL (6.4-8.2) 02/10/21 04:05 Albumin 2.5 g/dL (3.4-5.0) L 02/10/21 04:05 Globulin 3.9 g/dL (2.5-4.5) 02/10/21 04:05 Albumin/Globulin Ratio 0.6 Ratio (1.1-2.1) L 02/10/21 04:05 Specimen Type Catherized urine 02/06/21 22:28 Urine Color Yellow (YELLOW) 02/06/21 22:28 Urine Appearance Clear (CLEAR) 02/06/21 22:28 Urine pH 5.0 (5.0 - 8.0) 02/06/21 22:28 Ur Specific [place] 1.010 (1.000-1.030) 02/06/21 22:28 Urine Protein 1+ (NEGATIVE) 02/06/21 22:28 Urine Glucose (UA) Negative (NEGATIVE) 02/06/21 22:28 Urine Ketones Negative (NEGATIVE) 02/06/21 22:28 Urine Occult Blood 3+ (NEGATIVE) 02/06/21 22:28 Urine Nitrite Negative (NEGATIVE) 02/06/21 22:28 Urine Bilirubin Negative (NEGATIVE) 02/06/21 22:28 Urine Urobilinogen Normal (NORMAL) 02/06/21 22:28 Ur Leukocyte Esterase Negative (NEGATIVE) 02/06/21 22:28 Urine RBC 3-5 /HPF (0-3) A 02/06/21 22:28 Urine WBC 0-2 /HPF (0-5) 02/06/21 22:28 Ur Squamous Epith Cells Negative /HPF (NEGATIVE) 02/06/21 22:28 Urine Bacteria Negative /HPF (NEGATIVE) 02/06/21 22:28 Ur Culture Indicated? Yes/culture set up 02/06/21 22:28 Stool Description 100g arce unformed 02/09/21 18:50 Stool Description 100g arce unformed 02/09/21 18:50 Stl Occult Blood (IFOB) Positive (NEGATIVE) A 02/09/21 18:50 Stool for White Cells Positive (NEGATIVE) A 02/09/21 18:50 Stl C. diff Tox B Gene Negative (NEGATIVE) 02/09/21 18:50 Stl C. diff [id number] Presumptive negative (NEGATIVE) 02/09/21 18:50 Cryptosporid parvum Ag Negative (NEGATIVE) 02/09/21 18:50 Giardia lamblia Ag Negative (NEGATIVE) 02/09/21 18:50 SARS CoV-2 RNA Rapid JOSE RAMON Negative (NEGATIVE) 02/06/21 22:28 - Plan (1) Pulmonary embolism Status: Acute Qualifiers: Pulmonary embolism type: unspecified Chronicity: acute Acute cor pulmonale presence: without acute cor pulmonale Qualified Code(s): I26.99 - Other pulmonary embolism without acute cor pulmonale Plan: COUMADIN 5MG PO HS, ROCEPHIN 1G IV DAILY, CARDIZEM CD 240MG PO DAILY, LASIX 20MG PO BID, LOPID 600MG PO DAILY, MEGACE 40MG PO BID, GLUCOPHAGE 500MG PO BID, ZOFRAN 4MG IV Q6H, POTASSIUM CHLORIDE 10MEQ PO BID, ZOCOR 20MG PO HS, AND MAXZIDE 37.5/25MG PO DAILY (2) Ascites, malignant Status: Chronic Plan: General surgery consulted for paracentesis (3) Paroxysmal A-fib Status: Acute Plan: cardizem gtt wean as tolerated
--- NOTE | 2021-02-10 14:36 | DR.PROGNOT ---
Hospital Progress Notes - Progress Note for Day of: Progress Note Date: 02/10/21 - Chief Complaint Chief Complaint: c/o nausea and food intolerance .. mild abdominal drainage .( bloody ascites ..). catheter was removed . abdomen is soft ..non tender . BS + - Past Medical Family Social History Past Med/Fam/Surg Hx: No changes since H&P Allergies: Allergies No Known Drug Allergies Allergy (Verified 01/12/21 09:39) - Review Of Systems ROS: No change since H&P - Vital Signs Vital Signs: Temperature 97.5 F Pulse Rate [Left] 79 Pulse Rate 106 Respiratory Rate 35 Blood Pressure [Right Arm] 149/69 Blood Pressure 143/64 O2 Sat by Pulse Oximetry 95 - Physical Exam Oriented: Normal Eyes: Normal Ear: Normal Nose: Normal Throat: Normal Respiratory: Normal, OTHER (positive for PE ) Cardiovascular: Normal : Normal GI:Auscultation: Decreased GI:Palpation: Normal GI: Tenderness: Normal, Diffuse, Mild (diffuse tenderness but soft distended abdomen with ascites ) Skin: Normal Musculoskeletal: Normal Psychiatric: Normal Mood Description: Calm Affect: Normal Speech Pattern: Clear, Appropriate - Laboratory and Diagnostics Result Diagrams: 02/10/21 04:05 02/10/21 04:05 Labs: 02/06/21 22:28 Urine,Catheterized Urine Culture - Final Laboratory WBC 5.2 X10^3/uL (3.6-10.0) 02/10/21 04:05 RBC 4.53 X10^6/uL (3.5-5.4) 02/10/21 04:05 Hgb 12.2 g/dL (12.0-16.0) 02/10/21 04:05 Hct 37.6 % (36.0-47.0) 02/10/21 04:05 MCV 82.9 fL (80.0-100.0) 02/10/21 04:05 MCH 26.9 pg (27.0-34.0) L 02/10/21 04:05 MCHC 32.5 g/dL (33.0-35.0) L 02/10/21 04:05 RDW 14.7 % (11.6-16.5) 02/10/21 04:05 Plt Count 202 X10^3/uL (150.0-450.0) 02/10/21 04:05 Plt Count Comment Adequate (ADEQUATE) 02/08/21 04:40 MPV 10.1 fL (7.4-11.0) 02/10/21 04:05 Neut % (Auto) 73.7 % (42.0-75.0) 02/10/21 04:05 Lymph % (Auto) 20.5 % (21.0-51.0) L 02/10/21 04:05 [place] % (Auto) 2.2 % (0.0-13.0) 02/10/21 04:05 Eos % (Auto) 2.6 % (0.9-2.9) 02/10/21 04:05 Baso % (Auto) 1.0 % (0.2-1.0) 02/10/21 04:05 Neut # (Auto) 3.8 x10^3/uL (2.2-4.8) 02/10/21 04:05 Lymph # (Auto) 1.1 X10^3/uL (1.3-2.9) L 02/10/21 04:05 [place] # (Auto) 0.1 x10^3/uL (0.3-0.8) L 02/10/21 04:05 Eos # (Auto) 0.1 x10^3/uL (0.0-0.2) 02/10/21 04:05 Baso # (Auto) 0.1 X10^3/uL (0.0-0.1) 02/10/21 04:05 Absolute Nucleated RBC 0.0 /100WBC 02/10/21 04:05 Total Counted 100 02/08/21 04:40 Neutrophils % (Manual) 92 % (39-76) H 02/08/21 04:40 Lymphocytes % (Manual) 6 % (13-43) L 02/08/21 04:40 Monocytes % (Manual) 1 % (4-9) L 02/08/21 04:40 Eosinophils % (Manual) 1 % (0-6) 02/08/21 04:40 Plt Morphology Comment Normal (NORMAL) 02/08/21 04:40 RBC Morphology Normal (NORMAL) 02/08/21 04:40 PT 14.5 SECONDS (11.8-14.3) 02/10/21 04:05 INR Target Range - 02/10/21 04:05 INR 1.18 (0.8-1.3) 02/10/21 04:05 APTT 23.8 SECONDS (22.9-36.5) 02/06/21 18:17 PTT Comment - 02/06/21 18:17 D-Dimer 18.62 ug/ml (0.0-0.57) H* 02/06/21 18:17 Sodium 138 mmol/L (136-145) 02/10/21 04:05 Corrected Sodium 139 mmol/L (136-145) 02/10/21 04:05 Potassium 4.4 mmol/L (3.5-5.1) 02/10/21 04:05 Chloride 103 mmol/L (98-107) 02/10/21 04:05 Carbon Dioxide 23.0 mmol/L (21-32) 02/10/21 04:05 BUN 28 mg/dL (7-18) H 02/10/21 04:05 Creatinine 0.93 mg/dL (0.55-1.02) 02/10/21 04:05 Est GFR (MDRD) Af Amer > 60 (>60) 02/10/21 04:05 Est GFR (MDRD) Non-Af > 60 (>60) 02/10/21 04:05 Glucose 124 mg/dL (65-99) H 02/10/21 04:05 POC Glucose (mg/dL) 106 mg/dL (65-99) H 02/10/21 11:51 Calcium 8.4 mg/dL (8.5-10.1) L 02/10/21 04:05 Corrected Calcium 9.6 mg/dL (8.5-10.1) 02/10/21 04:05 Magnesium 2.1 mg/dL (1.7-2.9) 02/08/21 04:40 Magnesium 2.1 mg/dL (1.7-2.9) 02/08/21 04:40 Total Bilirubin 0.30 mg/dL (0.2-1.0) 02/10/21 04:05 AST 31 Units/L (15-37) 02/10/21 04:05 ALT 34 Units/L (12-78) 02/10/21 04:05 Alkaline Phosphatase 70 Units/L (46-116) 02/10/21 04:05 Creatine Kinase 57 Units/L (26-192) 02/07/21 04:15 CK-MB (CK-2) 1.1 ng/mL (0-4.0) 02/07/21 04:15 CK/CKMB % Calc 1.9 % (<4) 02/07/21 04:15 Troponin I < 0.02 ng/mL (0-1.5) 02/07/21 04:15 B-Natriuretic Peptide 136 pg/mL (0-79) H 02/06/21 18:17 Total Protein 6.4 g/dL (6.4-8.2) 02/10/21 04:05 Albumin 2.5 g/dL (3.4-5.0) L 02/10/21 04:05 Globulin 3.9 g/dL (2.5-4.5) 02/10/21 04:05 Albumin/Globulin Ratio 0.6 Ratio (1.1-2.1) L 02/10/21 04:05 Specimen Type Catherized urine 02/06/21 22:28 Urine Color Yellow (YELLOW) 02/06/21 22:28 Urine Appearance Clear (CLEAR) 02/06/21 22:28 Urine pH 5.0 (5.0 - 8.0) 02/06/21 22:28 Ur Specific [place] 1.010 (1.000-1.030) 02/06/21 22:28 Urine Protein 1+ (NEGATIVE) 02/06/21 22:28 Urine Glucose (UA) Negative (NEGATIVE) 02/06/21 22:28 Urine Ketones Negative (NEGATIVE) 02/06/21 22:28 Urine Occult Blood 3+ (NEGATIVE) 02/06/21 22:28 Urine Nitrite Negative (NEGATIVE) 02/06/21 22:28 Urine Bilirubin Negative (NEGATIVE) 02/06/21 22:28 Urine Urobilinogen Normal (NORMAL) 02/06/21 22:28 Ur Leukocyte Esterase Negative (NEGATIVE) 02/06/21 22:28 Urine RBC 3-5 /HPF (0-3) A 02/06/21 22:28 Urine WBC 0-2 /HPF (0-5) 02/06/21 22:28 Ur Squamous Epith Cells Negative /HPF (NEGATIVE) 02/06/21 22:28 Urine Bacteria Negative /HPF (NEGATIVE) 02/06/21 22:28 Ur Culture Indicated? Yes/culture set up 02/06/21 22:28 Stool Description 100g arce unformed 02/09/21 18:50 Stool Description 100g arce unformed 02/09/21 18:50 Stl Occult Blood (IFOB) Positive (NEGATIVE) A 02/09/21 18:50 Stool for White Cells Positive (NEGATIVE) A 02/09/21 18:50 Stl C. diff Tox B Gene Negative (NEGATIVE) 02/09/21 18:50 Stl C. diff [id number] Presumptive negative (NEGATIVE) 02/09/21 18:50 Cryptosporid parvum Ag Negative (NEGATIVE) 02/09/21 18:50 Giardia lamblia Ag Negative (NEGATIVE) 02/09/21 18:50 SARS CoV-2 RNA Rapid JOSE RAMON Negative (NEGATIVE) 02/06/21 22:28 - Assessment and Plan 1: PE on anticoagulants . malignant ascites .s/p paracentesis ..catheter was removed . ovarian cancer with peritoneal carcinomatosis .. same plan .. - Problem Patient Problems: Patient Problems Abdominal ascites (Acute) R18.8 Regular sinus tachycardia (Acute) R00.0 Paroxysmal A-fib (Acute) I48.0 Colon cancer (Acute) C18.9 Pulmonary embolism (Acute) I26.99 Ascites, malignant (Chronic) R18.0
[2021-02-10] MEDS: IMODIUM CAP 2 MG PO PRN ×2 (15:37→23:37)
[2021-02-10] MEDS: COUMADIN TAB 5 MG (JANTOVEN) PO SCH (20:08)
[2021-02-10] MEDS: ZOCOR TAB 20 MG PO SCH (20:12)
[2021-02-11 05:08] LABS: BASOPHILS % (AUTO) 0.8 % (0.2-1.0); EOSINOPHILS % (AUTO) 1.5 % (0.9-2.9); HEMATOCRIT 36.2 % (36.0-47.0); HEMOGLOBIN 11.5 g/dL (12.0-16.0); LYMPHOCYTES # (AUTO) 1.1 X10^3/uL (1.3-2.9); LYMPHOCYTES % (AUTO) 46.8 % (21.0-51.0); MEAN CORPUSCULAR HEMOGLOBIN 26.4 pg (27.0-34.0); MEAN CORPUSCULAR HGB CONC 31.7 g/dL (33.0-35.0); MEAN PLATELET VOLUME 9.9 fL (7.4-11.0); MONOCYTES # (AUTO) 0.2 x10^3/uL (0.3-0.8); MONOCYTES % (AUTO) 6.3 % (0.0-13.0); NEUTROPHILS # (AUTO) 1.1 x10^3/uL (2.2-4.8); NEUTROPHILS % (AUTO) 44.6 % (42.0-75.0); PLATELET COUNT 224 X10^3/uL (150.0-450.0); RED BLOOD COUNT 4.36 X10^6/uL (3.5-5.4); RED CELL DISTRIBUTION WIDTH 14.8 % (11.6-16.5); WHITE BLOOD COUNT 2.4 X10^3/uL (3.6-10.0)
[2021-02-11 05:22] LABS: ALANINE AMINOTRANSFERASE 42 Units/L (12-78); ALBUMIN 2.6 g/dL (3.4-5.0); ALKALINE PHOSPHATASE 72 Units/L (46-116); ASPARTATE AMINO TRANSFERASE 41 Units/L (15-37); BLOOD UREA NITROGEN 31 mg/dL (7-18); CALCIUM 8.4 mg/dL (8.5-10.1); CARBON DIOXIDE 21.2 mmol/L (21-32); CHLORIDE 102 mmol/L (98-107); COR CA(FOR HYPOALB) 9.5 mg/dL (8.5-10.1); COR NA(FOR HYPERGLY) 136 mmol/L (136-145); CREATININE 1.03 mg/dL (0.55-1.02); SODIUM 136 mmol/L (136-145); TOTAL PROTEIN 6.5 g/dL (6.4-8.2); eGFR NON BLACK RACES 55 (>60)
[2021-02-11 06:01] LABS: GIANT PLATELET FEW; PLATELET MORPHOLOGY COMMENT ABNORMAL (NORMAL)
[2021-02-11] MEDS: GLUCOPHAGE PO SCH ×2 (06:50→17:27)
[2021-02-11] MEDS: ROCEPHIN 1 GRAM IV PREMIX 1 G/50 ML IV.SOLN. IV SCH (08:31)
[2021-02-11] MEDS: CARDIZEM CD 240 MG 24-HR PO SCH (08:32)
[2021-02-11] MEDS: LOPID PO SCH (08:33)
[2021-02-11] MEDS: IMODIUM CAP 2 MG PO PRN ×2 (08:34→16:56)
[2021-02-11] MEDS: MEGACE PO SCH ×2 (08:34→20:11)
[2021-02-11] MEDS: LOVENOX INJ 80 MG SYR SC SCH (08:35)
[2021-02-11] MEDS: MAXZIDE 37.5/25 MG PO SCH (08:35)
[2021-02-11] MEDS: MYLICON TAB 80 MG CHEW PO PRN (08:35)
[2021-02-11] MEDS: MICRO K EXTEN CAP 10 MEQ PO SCH ×2 (08:35→20:43)
[2021-02-11] MEDS: PHENERGAN INJ 25 MG IM PRN (08:36)
[2021-02-11] MEDS: LASIX PO SCH ×2 (08:38→20:10)
[2021-02-11] MEDS: NS 1000 ML 1,000 ML IV SCH ×2 (09:10→20:47)
[2021-02-11] MEDS ORDERED: LANOXIN PO SCH (10:00)
--- NOTE | 2021-02-11 11:59 | PCM.PROG ---
Progress Note - Progress Note for Day of Date of Exam: 02/11/21 - Subjective Subjective: WAS ADMITTED FOR TREATMENT OF PULMONARY EMBOLISM, MALIGNANT ASCITES, AND PAROXYSMAL A-FIB. SHE WAS STARTED ON A TREATMENT DOSE OF LOVENOX, A CARDIZEM DRIP, AND WAS CONSULTED FOR A PARACENTESIS. DRAIN WAS REMOVED MONDAY. PATIENT RECENTLY STARTED CHEMO FOR PERITONEAL CARCINOMATOSIS. SHE HAS A PMH OF COLON CANCER. SHE REPORTS THAT MASS WAS REMOVED IN 2004. SHE IS FOLLOWED BY IN [place], [place]. SHE IS CURRENTLY ON ORAL CARDIZEM AND WAS STARTED ON COUMADIN FOR TREATMENT OF PULMONARY EMBOLISM. HER HEART RATE HAS BEEN 95-110 BPM THROUGHOUT THE NIGHT. TODAY, SHE IS ALERT AND ORIENTED, LYING IN BED ON MORNING ROUNDS. SHE CONTINUES WITH COMPLAINTS OF WEAKNESS, SHORTNESS OF BREATH, AND NAUSEA AT TIMES. ON EXAMINATION, SHE IS SLIGHTLY TACHYCARDIC WITH HR 110. BILATERAL LUNGS ARE NOTED WITH DIMINISHED LUNG SOUNDS THROUGHOUT. ABDOMEN IS DISTENDED AND NOTED WITH DIFFUSE TENDERNESS. SWELLING DOES APPEAR TO HAVE DECREASED SINCE YESTERDAY. NORMAL BOWEL SOUNDS NOTED IN ALL QUADRANTS. FAIRCHILD CATHETER IS NOTED TO BEDSIDE DRAINAGE. HER VITALS THIS MORNING ARE: 98.8-99-2 7-96%-141/57. LABS WERE OBTAINED. ABNORMAL LAB VALUES INCLUDE THE FOLLOWING: WBC 2.4, HGB 11.5, INR 2.44, BUN 31, CREATININE 1.03, GLUCOSE 112, CALCIUM 8.4, AST 41, ALBUMIN 2.6. SHE IS CURRENTLY RECEIVING ROCEPHIN 1G IV DAILY, CARDIZEM CD 240MG PO DAILY, COUMADIN 5MG PO HS, LOVENOX 80MG SC BID, LASIX 20MG PO BID, LOPID 600MG PO DAILY, MEGACE 40MG PO BID, GLUCOPHAGE 500MG PO BID, ZOFRAN 8MG IV Q4H, PHENERGAN 25MG IM Q6H PRN NAUSEA, DILAUDID 0.5MG IV Q2H PRN PAIN, POTASSIUM CHLORIDE 20MEQ PO BID, ZOCOR 20MG PO HS, AND MAXZIDE 37.5/25MG PO DAILY. TODAY, WE WILL ADD DIGOXIN 0.125MG PO DAILY. WE WILL START BLADDER TRAINING AND THEN DISCONTINUE THE FAIRCHILD CATHETER IN PREPARATION FOR POSSIBLE DISCHARGE HOME TOMORROW. OTHERWISE, WE WILL CONTINUE WITH CURRENT PLAN OF CARE TODAY. TIME SPENT ON CLINICAL ASSESSMENT, REVIEWING LABS AND IMAGING, DECISION MAKING, AND DOCUMENTATION GREATER THAN 45 MINUTES. - Past Medical Family Social History Past Med/Fam/Surg Hx: No changes since H&P Allergies: Allergies No Known Drug Allergies Allergy (Verified 01/12/21 09:39) - Review of Systems ROS: No change since H&P - Vital Signs and I&O's Vital Signs: Temperature 98.8 F Pulse Rate [Left] 79 Pulse Rate 106 Respiratory Rate 28 Blood Pressure [Right Arm] 149/69 Blood Pressure 142/67 O2 Sat by Pulse Oximetry 96 Intake and Output: Intake & Output 02/08/21 02/09/21 02/10/21 02/11/21 11:59 11:59 11:59 11:59 Intake Total 1934 / 1934 1582 / 1582 1050 / 1050 1294 / 1294 Output Total 6100 / 6100 4035 / 4035 2500 / 2500 1550 / 1550 Balance -4166 / -4166 -2453 / -2453 -1450 / -1450 -256 / -256 - Physical Exam Oriented: Normal Eyes: Normal Ear: Normal Nose: Normal Throat: Normal Respiratory: Normal, OTHER (positive for PE ) Cardiovascular: Normal : Normal Auscultation: Bowel Sounds: Decreased Palpation: Normal Tenderness: Normal, Diffuse, Mild (diffuse tenderness but soft distended abdomen with ascites ) Skin: Normal Musculoskeletal: Normal Psychiatric: Normal Mood Description: Calm Affect: Normal Speech Pattern: Clear, Appropriate - Laboratory and Diagnostics Result Diagrams: 02/11/21 04:25 02/11/21 04:25 Labs: 02/06/21 22:28 Urine,Catheterized Urine Culture - Final Laboratory WBC 2.4 X10^3/uL (3.6-10.0) L 02/11/21 04:25 RBC 4.36 X10^6/uL (3.5-5.4) 02/11/21 04:25 Hgb 11.5 g/dL (12.0-16.0) L 02/11/21 04:25 Hct 36.2 % (36.0-47.0) 02/11/21 04:25 MCV 83.0 fL (80.0-100.0) 02/11/21 04:25 MCH 26.4 pg (27.0-34.0) L 02/11/21 04:25 MCHC 31.7 g/dL (33.0-35.0) L 02/11/21 04:25 RDW 14.8 % (11.6-16.5) 02/11/21 04:25 Plt Count 224 X10^3/uL (150.0-450.0) 02/11/21 04:25 Plt Count Comment Adequate (ADEQUATE) 02/11/21 04:25 MPV 9.9 fL (7.4-11.0) 02/11/21 04:25 Neut % (Auto) 44.6 % (42.0-75.0) 02/11/21 04:25 Lymph % (Auto) 46.8 % (21.0-51.0) 02/11/21 04:25 [place] % (Auto) 6.3 % (0.0-13.0) 02/11/21 04:25 Eos % (Auto) 1.5 % (0.9-2.9) 02/11/21 04:25 Baso % (Auto) 0.8 % (0.2-1.0) 02/11/21 04:25 Neut # (Auto) 1.1 x10^3/uL (2.2-4.8) L 02/11/21 04:25 Lymph # (Auto) 1.1 X10^3/uL (1.3-2.9) L 02/11/21 04:25 [place] # (Auto) 0.2 x10^3/uL (0.3-0.8) L 02/11/21 04:25 Eos # (Auto) 0.0 x10^3/uL (0.0-0.2) 02/11/21 04:25 Baso # (Auto) 0.0 X10^3/uL (0.0-0.1) 02/11/21 04:25 Absolute Nucleated RBC 0.2 /100WBC 02/11/21 04:25 Total Counted 50 02/11/21 04:25 Neutrophils % (Manual) 52 % (39-76) 02/11/21 04:25 Lymphocytes % (Manual) 48 % (13-43) H 02/11/21 04:25 Monocytes % (Manual) 1 % (4-9) L 02/08/21 04:40 Eosinophils % (Manual) 1 % (0-6) 02/08/21 04:40 Giant Platelets Few 02/11/21 04:25 Plt Morphology Comment Abnormal (NORMAL) A 02/11/21 04:25 RBC Morphology Normal (NORMAL) 02/11/21 04:25 PT 25.3 SECONDS (11.8-14.3) 02/11/21 04:25 INR Target Range - 02/11/21 04:25 INR 2.44 (0.8-1.3) H 02/11/21 04:25 APTT 23.8 SECONDS (22.9-36.5) 02/06/21 18:17 PTT Comment - 02/06/21 18:17 D-Dimer 18.62 ug/ml (0.0-0.57) H* 02/06/21 18:17 Sodium 136 mmol/L (136-145) 02/11/21 04:25 Corrected Sodium 136 mmol/L (136-145) 02/11/21 04:25 Potassium 4.6 mmol/L (3.5-5.1) 02/11/21 04:25 Chloride 102 mmol/L (98-107) 02/11/21 04:25 Carbon Dioxide 21.2 mmol/L (21-32) 02/11/21 04:25 BUN 31 mg/dL (7-18) H 02/11/21 04:25 Creatinine 1.03 mg/dL (0.55-1.02) H 02/11/21 04:25 Est GFR (MDRD) Af Amer > 60 (>60) 02/11/21 04:25 Est GFR (MDRD) Non-Af 55 (>60) L 02/11/21 04:25 Glucose 112 mg/dL (65-99) H 02/11/21 04:25 POC Glucose (mg/dL) 103 mg/dL (65-99) H 02/11/21 11:50 Calcium 8.4 mg/dL (8.5-10.1) L 02/11/21 04:25 Corrected Calcium 9.5 mg/dL (8.5-10.1) 02/11/21 04:25 Magnesium 2.1 mg/dL (1.7-2.9) 02/08/21 04:40 Magnesium 2.1 mg/dL (1.7-2.9) 02/08/21 04:40 Total Bilirubin 0.30 mg/dL (0.2-1.0) 02/11/21 04:25 AST 41 Units/L (15-37) H 02/11/21 04:25 ALT 42 Units/L (12-78) 02/11/21 04:25 Alkaline Phosphatase 72 Units/L (46-116) 02/11/21 04:25 Creatine Kinase 57 Units/L (26-192) 02/07/21 04:15 CK-MB (CK-2) 1.1 ng/mL (0-4.0) 02/07/21 04:15 CK/CKMB % Calc 1.9 % (<4) 02/07/21 04:15 Troponin I < 0.02 ng/mL (0-1.5) 02/07/21 04:15 B-Natriuretic Peptide 136 pg/mL (0-79) H 02/06/21 18:17 Total Protein 6.5 g/dL (6.4-8.2) 02/11/21 04:25 Albumin 2.6 g/dL (3.4-5.0) L 02/11/21 04:25 Globulin 3.9 g/dL (2.5-4.5) 02/11/21 04:25 Albumin/Globulin Ratio 0.7 Ratio (1.1-2.1) L 02/11/21 04:25 Specimen Type Catherized urine 02/06/21 22:28 Urine Color Yellow (YELLOW) 02/06/21 22:28 Urine Appearance Clear (CLEAR) 02/06/21 22:28 Urine pH 5.0 (5.0 - 8.0) 02/06/21 22:28 Ur Specific [place] 1.010 (1.000-1.030) 02/06/21 22:28 Urine Protein 1+ (NEGATIVE) 02/06/21 22:28 Urine Glucose (UA) Negative (NEGATIVE) 02/06/21 22: Urine Ketones Negative (NEGATIVE) 02/06/21 22: Urine Occult Blood 3+ (NEGATIVE) 02/06/21 22:28 Urine Nitrite Negative (NEGATIVE) 02/06/21 22: Urine Bilirubin Negative (NEGATIVE) 02/06/21 22: Urine Urobilinogen Normal (NORMAL) 02/06/21 22:28 Ur Leukocyte Esterase Negative (NEGATIVE) 02/06/21 22:28 Urine RBC 3-5 /HPF (0-3) A 02/06/21 22:28 Urine WBC 0-2 /HPF (0-5) 02/06/21 22:28 Ur Squamous Epith Cells Negative /HPF (NEGATIVE) 02/06/21 22:28 Urine Bacteria Negative /HPF (NEGATIVE) 02/06/21 22:28 Ur Culture Indicated? Yes/culture set up 02/06/21 22:28 Stool Description 100g arce unformed 02/09/21 18:50 Stool Description 100g arce unformed 02/09/21 18:50 Stl Occult Blood (IFOB) Positive (NEGATIVE) A 02/09/21 18:50 Stool for White Cells Positive (NEGATIVE) A 02/09/21 18:50 Stl C. diff Tox B Gene Negative (NEGATIVE) 02/09/21 18:50 Stl C. diff [id number] Presumptive negative (NEGATIVE) 02/09/21 18:50 Cryptosporid parvum Ag Negative (NEGATIVE) 02/09/21 18:50 Giardia lamblia Ag Negative (NEGATIVE) 02/09/21 18:50 SARS CoV-2 RNA Rapid JOSE RAMON Negative (NEGATIVE) 02/06/21 22:28 - Plan (1) Pulmonary embolism Status: Acute Qualifiers: Pulmonary embolism type: unspecified Chronicity: acute Acute cor pulmonale presence: without acute cor pulmonale Qualified Code(s): I26.99 - Other pulmonary embolism without acute cor pulmonale Plan: COUMADIN 5MG PO HS, ROCEPHIN 1G IV DAILY, CARDIZEM CD 240MG PO DAILY, DIGOXIN 0.125MG PO DAILY, LASIX 20MG PO BID, LOPID 600MG PO DAILY, MEGACE 40MG PO BID, GLUCOPHAGE 500MG PO BID, ZOFRAN 4MG IV Q6H, POTASSIUM CHLORIDE 10MEQ PO BID, ZOCOR 20MG PO HS, AND MAXZIDE 37.5/25MG PO DAILY (2) Ascites, malignant Status: Chronic Plan: General surgery consulted for paracentesis (3) Paroxysmal A-fib Status: Acute Plan: cardizem gtt wean as tolerated
[2021-02-11] MEDS ORDERED: LANOXIN or DIGITEK PO SCH (12:00)
[2021-02-11] MEDS: ZOFRAN INJ 4 MG VIAL IVP PRN ×2 (16:55→23:05)
[2021-02-11] MEDS ORDERED: RESTORIL CAP 15 MG PO PRN (19:45)
[2021-02-11] MEDS: COUMADIN TAB 5 MG (JANTOVEN) PO SCH (20:09)
[2021-02-11] MEDS: ZOCOR TAB 20 MG PO SCH (20:10)
[2021-02-12] MEDS: IMODIUM CAP 2 MG PO PRN (01:00)
[2021-02-12 04:53] LABS: BASOPHILS % (AUTO) 0.8 % (0.2-1.0); EOSINOPHILS % (AUTO) 1.9 % (0.9-2.9); HEMATOCRIT 34.5 % (36.0-47.0); LYMPHOCYTES # (AUTO) 1.1 X10^3/uL (1.3-2.9); MEAN CORPUSCULAR HEMOGLOBIN 26.2 pg (27.0-34.0); MEAN CORPUSCULAR VOLUME 81.8 fL (80.0-100.0); MEAN PLATELET VOLUME 9.8 fL (7.4-11.0); MONOCYTES # (AUTO) 0.2 x10^3/uL (0.3-0.8); MONOCYTES % (AUTO) 10.7 % (0.0-13.0); NEUTROPHILS # (AUTO) 0.7 x10^3/uL (2.2-4.8); NEUTROPHILS % (AUTO) 33.6 % (42.0-75.0); PLATELET COUNT 246 X10^3/uL (150.0-450.0); RED BLOOD COUNT 4.21 X10^6/uL (3.5-5.4); RED CELL DISTRIBUTION WIDTH 15.1 % (11.6-16.5); WHITE BLOOD COUNT 2.1 X10^3/uL (3.6-10.0)
[2021-02-12 05:03] LABS: ALANINE AMINOTRANSFERASE 50 Units/L (12-78); ALBUMIN 2.6 g/dL (3.4-5.0); ALKALINE PHOSPHATASE 76 Units/L (46-116); ASPARTATE AMINO TRANSFERASE 48 Units/L (15-37); BLOOD UREA NITROGEN 33 mg/dL (7-18); CALCIUM 8.4 mg/dL (8.5-10.1); CHLORIDE 99 mmol/L (98-107); COR CA(FOR HYPOALB) 9.5 mg/dL (8.5-10.1); CREATININE 1.05 mg/dL (0.55-1.02); SODIUM 135 mmol/L (136-145); TOTAL PROTEIN 6.5 g/dL (6.4-8.2); eGFR NON BLACK RACES 53 (>60)
[2021-02-12 05:24] LABS: PLATELET MORPHOLOGY COMMENT NORMAL (NORMAL)
[2021-02-12] MEDS: ZOFRAN INJ 4 MG VIAL IVP PRN (05:33)
[2021-02-12] MEDS: GLUCOPHAGE PO SCH (06:53)
[2021-02-12] MEDS ORDERED: LANOXIN or DIGITEK PO SCH (09:00)
[2021-02-12] MEDS: ROCEPHIN 1 GRAM IV PREMIX 1 G/50 ML IV.SOLN. IV SCH (09:35)
[2021-02-12] MEDS: LASIX PO SCH (09:35)
[2021-02-12] MEDS: MEGACE PO SCH (09:40)
[2021-02-12] MEDS: CARDIZEM CD 240 MG 24-HR PO SCH (09:40)
[2021-02-12] MEDS: LOPID PO SCH (09:41)
[2021-02-12] MEDS: MAXZIDE 37.5/25 MG PO SCH (09:41)
[2021-02-12] MEDS: MICRO K EXTEN CAP 10 MEQ PO SCH (09:41)
[2021-02-12] MEDS: NS 1000 ML 1,000 ML IV SCH (09:47)
[2021-02-12 12:52] VITALS: BP 138/68
== END 2021-02-12 13:00 | disposition home health service (06) | DRG 176 ==
LOC: ER 17:33 → ICU 02-07 00:03
PROVIDERS: ADMIT Internal Medicine; ATTEND Internal Medicine
DX: I87.2 Venous insufficiency (chronic) (peripheral); R06.02 Shortness of breath; R00.0 Tachycardia, unspecified; Z85.038 Personal history of other malignant neoplasm of large intestine; Z20.822 Contact with and (suspected) exposure to COVID-19; I48.0 Paroxysmal atrial fibrillation; R26.89 Other abnormalities of gait and mobility; I26.99 Other pulmonary embolism without acute cor pulmonale; R18.0 Malignant ascites; Z92.21 Personal history of antineoplastic chemotherapy; C48.2 Malignant neoplasm of peritoneum, unspecified; R94.31 Abnormal electrocardiogram [ECG] [EKG]

== ENCOUNTER 2021-08-06 16:37 | Observation (INO) ==
[2021-08-06] MEDS ORDERED: BENADRYL CAP/TAB 25 MG PO ONE ×2 (19:00→21:42)
[2021-08-06 19:10] LABS: CKMB % 4.2 % (<4); CREATINE KINASE 24 Units/L (26-192); CREATINE KINASE MB < 1.0 ng/mL (0-4.0); IRON 38 ug/dL (50-175); TROPONIN I < 0.02 ng/mL (0-1.5)
[2021-08-06 20:49] LABS: BASOPHILS % (AUTO) 0.7 % (0.2-1.0); EOSINOPHILS % (AUTO) 0.1 % (0.9-2.9); HEMATOCRIT 21.7 % (36.0-47.0); HEMOGLOBIN 7.7 g/dL (12.0-16.0); LYMPHOCYTES # (AUTO) 1.1 X10^3/uL (1.3-2.9); LYMPHOCYTES % (AUTO) 17.6 % (21.0-51.0); MEAN CORPUSCULAR HEMOGLOBIN 33.6 pg (27.0-34.0); MEAN CORPUSCULAR HGB CONC 35.3 g/dL (33.0-35.0); MEAN CORPUSCULAR VOLUME 95.3 fL (80.0-100.0); MEAN PLATELET VOLUME 8.7 fL (7.4-11.0); MONOCYTES # (AUTO) 0.5 x10^3/uL (0.3-0.8); MONOCYTES % (AUTO) 7.8 % (0.0-13.0); NEUTROPHILS # (AUTO) 4.6 x10^3/uL (2.2-4.8); NEUTROPHILS % (AUTO) 73.8 % (42.0-75.0); PLATELET COUNT 359 X10^3/uL (150.0-450.0); RED BLOOD COUNT 2.28 X10^6/uL (3.5-5.4); RED CELL DISTRIBUTION WIDTH 26.7 % (11.6-16.5); WHITE BLOOD COUNT 6.3 X10^3/uL (3.6-10.0)
[2021-08-06] MEDS: NS 1,000 ML IV 1,000 ML IV SCH (20:52)
--- NOTE | 2021-08-06 20:52 | RAD ---
HISTORYANEMIA, SOBSTUDYCHEST, 1 VIEWCOMPARISONMay 2020TECHNIQUEChest radiographic imaging, AP portable projection, 1 imageFINDINGSNo cardiomegaly.No focal airspace disease.Mild increased interstitial markings with possible [place] B-lines at the periphery of the lung bases.No pleural effusion.No pneumothorax.No acute osseous abnormality.Incidental skin fold overlying the lateral aspect of the left chest.IMPRESSIONFindings are concerning for mild acute cardiogenic edema.Electronically signed by: Paul Lloyd (Aug 06, 2021 20:49:54)
[2021-08-06 20:59] LABS: ALANINE AMINOTRANSFERASE 51 Units/L (12-78); ALBUMIN 2.8 g/dL (3.4-5.0); ALKALINE PHOSPHATASE 114 Units/L (46-116); ASPARTATE AMINO TRANSFERASE 42 Units/L (15-37); BLOOD UREA NITROGEN 11 mg/dL (7-18); CALCIUM 9.2 mg/dL (8.5-10.1); CARBON DIOXIDE 20.1 mmol/L (21-32); CHLORIDE 98 mmol/L (98-107); COR CA(FOR HYPOALB) 10.2 mg/dL (8.5-10.1); COR NA(FOR HYPERGLY) 131 mmol/L (136-145); CREATININE 0.94 mg/dL (0.55-1.02); SODIUM 131 mmol/L (136-145); TOTAL PROTEIN 7.3 g/dL (6.4-8.2); eGFR NON BLACK RACES > 60 (>60)
[2021-08-06 21:12] LABS: PLATELET MORPHOLOGY COMMENT NORMAL (NORMAL)
[2021-08-06 21:13] LABS: ANISOCYTOSIS 3+; BURR CELLS SLIGHT; OVALOCYTES SLIGHT; POIKILOCYTOSIS 1+; TEAR DROP CELLS SLIGHT
[2021-08-06] MEDS ORDERED: NS 250 ML IV 250 ML IV ONE (21:43)
[2021-08-06] MEDS: TYLENOL 325 MG TAB PO PRN (21:44)
[2021-08-06] MEDS ORDERED: NS 100 ML IV 100 ML ONE (22:24)
--- NOTE | 2021-08-06 23:14 | CT ---
PROCEDURE: CTA Chest .HISTORY: Dyspnea and elevated D-dimer.TECHNIQUE: Axial images were performed through the chest with the administration of IV contrast with multiplanar reformations . 3D and MIPS reconstructions were performed and reviewed. Dose reduction techniques including Automated Exposure Control (AEC) and adjustment of mA and kV were utilized .COMPARISON: 02/06/2021.TECHNICAL QUALITY: Satisfactory .FINDINGS:Mild atherosclerosis aorta with tortuosity and no dissection. No evidence of aneurysm.No evidence of pulmonary embolus.Mediastinum and hilar regions show no abnormality.Normal size heart with no pericardial fluid.No pulmonary consolidation or pleural fluid. 5 mm pulmonary nodule right lower lobe adjacent to the major fissure image 65 series 5 that is unchanged compared to previous study.Visualized upper abdomen shows moderate ascites with irregular liver contour consistent with cirrhosis. Punctate calcified granulomas in the spleen with unchanged splenomegaly greater than 14 cm with all spleen not included on the study.No acute bony abnormality.IMPRESSION:1. No evidence of pulmonary embolus.2. No aortic dissection.3. No pulmonary consolidation.4. Unchanged cirrhosis with splenomegaly and ascites.Electronically signed by: Smay Montes (Aug 06, 2021 23:13:07)
[2021-08-07 03:30] LABS: BASOPHILS % (AUTO) 0.8 % (0.2-1.0); EOSINOPHILS % (AUTO) 0.3 % (0.9-2.9); HEMATOCRIT 22.9 % (36.0-47.0); HEMOGLOBIN 8.1 g/dL (12.0-16.0); LYMPHOCYTES # (AUTO) 1.2 X10^3/uL (1.3-2.9); LYMPHOCYTES % (AUTO) 23.2 % (21.0-51.0); MEAN CORPUSCULAR HEMOGLOBIN 32.5 pg (27.0-34.0); MEAN CORPUSCULAR HGB CONC 35.2 g/dL (33.0-35.0); MEAN CORPUSCULAR VOLUME 92.4 fL (80.0-100.0); MEAN PLATELET VOLUME 8.3 fL (7.4-11.0); MONOCYTES # (AUTO) 0.5 x10^3/uL (0.3-0.8); MONOCYTES % (AUTO) 10.2 % (0.0-13.0); NEUTROPHILS # (AUTO) 3.3 x10^3/uL (2.2-4.8); NEUTROPHILS % (AUTO) 65.5 % (42.0-75.0); PLATELET COUNT 330 X10^3/uL (150.0-450.0); RED BLOOD COUNT 2.48 X10^6/uL (3.5-5.4); RED CELL DISTRIBUTION WIDTH 24.2 % (11.6-16.5); WHITE BLOOD COUNT 5.1 X10^3/uL (3.6-10.0)
[2021-08-07 03:39] LABS: ALANINE AMINOTRANSFERASE 41 Units/L (12-78); ALBUMIN 2.5 g/dL (3.4-5.0); ALKALINE PHOSPHATASE 103 Units/L (46-116); ASPARTATE AMINO TRANSFERASE 36 Units/L (15-37); BLOOD UREA NITROGEN 10 mg/dL (7-18); CALCIUM 8.7 mg/dL (8.5-10.1); CARBON DIOXIDE 21.4 mmol/L (21-32); CHLORIDE 100 mmol/L (98-107); COR CA(FOR HYPOALB) 9.9 mg/dL (8.5-10.1); CREATININE 0.82 mg/dL (0.55-1.02); SODIUM 131 mmol/L (136-145); TOTAL PROTEIN 6.4 g/dL (6.4-8.2); eGFR NON BLACK RACES > 60 (>60)
[2021-08-07 03:51] LABS: CKMB % 4.6 % (<4); CREATINE KINASE 22 Units/L (26-192); CREATINE KINASE MB < 1.0 ng/mL (0-4.0); TROPONIN I < 0.02 ng/mL (0-1.5)
[2021-08-07 04:10] LABS: ANISOCYTOSIS 2+; PLATELET MORPHOLOGY COMMENT NORMAL (NORMAL)
[2021-08-07] MEDS: TYLENOL 325 MG TAB PO PRN ×2 (08:44→15:00)
[2021-08-07] MEDS: PATIENT'S HOME MEDICATION PO SCH ×2 (10:23→20:41)
[2021-08-07 11:34] LABS: CKMB % 5.3 % (<4); CREATINE KINASE 19 Units/L (26-192); CREATINE KINASE MB < 1.0 ng/mL (0-4.0); TROPONIN I < 0.02 ng/mL (0-1.5)
[2021-08-07] MEDS ORDERED: BENADRYL CAP/TAB 25 MG PO ONE (13:00)
[2021-08-07] MEDS: BUTT CREAM (COMPOUND) TOP PRN (14:07)
[2021-08-07] MEDS ORDERED: NS 250 ML IV 250 ML IV ONE (14:39)
[2021-08-07 17:21] VITALS: BMI 22.6
[2021-08-07 18:27] LABS: HEMOGLOBIN 9.3 g/dL (12.0-16.0)
[2021-08-07] MEDS ORDERED: ELIQUIS ONE (22:17)
[2021-08-07] MEDS ORDERED: LANOXIN or DIGITEK ONE (22:17)
[2021-08-07] MEDS ORDERED: ZOCOR TAB 20 MG PO ONE (22:17)
[2021-08-07] MEDS: ELIQUIS PO SCH (22:33)
[2021-08-07] MEDS: LANOXIN or DIGITEK PO SCH (22:33)
[2021-08-07] MEDS: NS 1,000 ML IV 1,000 ML IV SCH (22:33)
[2021-08-07] MEDS: ZOCOR TAB 20 MG PO SCH (22:34)
[2021-08-08 04:54] LABS: BASOPHILS % (AUTO) 0.6 % (0.2-1.0); EOSINOPHILS % (AUTO) 0.5 % (0.9-2.9); HEMOGLOBIN 9.6 g/dL (12.0-16.0); LYMPHOCYTES # (AUTO) 1.1 X10^3/uL (1.3-2.9); LYMPHOCYTES % (AUTO) 18.1 % (21.0-51.0); MEAN CORPUSCULAR HEMOGLOBIN 32.8 pg (27.0-34.0); MEAN CORPUSCULAR HGB CONC 35.8 g/dL (33.0-35.0); MEAN CORPUSCULAR VOLUME 91.7 fL (80.0-100.0); MEAN PLATELET VOLUME 8.2 fL (7.4-11.0); MONOCYTES # (AUTO) 0.5 x10^3/uL (0.3-0.8); MONOCYTES % (AUTO) 8.8 % (0.0-13.0); NEUTROPHILS # (AUTO) 4.3 x10^3/uL (2.2-4.8); PLATELET COUNT 317 X10^3/uL (150.0-450.0); RED BLOOD COUNT 2.94 X10^6/uL (3.5-5.4); RED CELL DISTRIBUTION WIDTH 22.5 % (11.6-16.5)
[2021-08-08 05:05] LABS: ALANINE AMINOTRANSFERASE 37 Units/L (12-78); ALBUMIN 2.4 g/dL (3.4-5.0); ALKALINE PHOSPHATASE 97 Units/L (46-116); ASPARTATE AMINO TRANSFERASE 34 Units/L (15-37); BLOOD UREA NITROGEN 7 mg/dL (7-18); CALCIUM 8.8 mg/dL (8.5-10.1); CHLORIDE 103 mmol/L (98-107); CREATININE 0.56 mg/dL (0.55-1.02); SODIUM 134 mmol/L (136-145); TOTAL PROTEIN 6.2 g/dL (6.4-8.2); eGFR NON BLACK RACES > 60 (>60)
[2021-08-08 05:06] LABS: COR CA(FOR HYPOALB) 10.1 mg/dL (8.5-10.1); DIGOXIN 0.74 ng/mL (0.9-2)
[2021-08-08 05:17] LABS: PLATELET MORPHOLOGY COMMENT NORMAL (NORMAL)
[2021-08-08] MEDS: BUTT CREAM (COMPOUND) TOP PRN (06:09)
[2021-08-08] MEDS: CARDIZEM CD 240 MG 24-HR PO SCH (10:04)
[2021-08-08] MEDS: PATIENT'S HOME MEDICATION PO SCH ×2 (10:04→21:06)
[2021-08-08] MEDS: ELIQUIS PO SCH ×2 (10:04→21:04)
[2021-08-08] MEDS: LANOXIN or DIGITEK PO SCH (10:05)
[2021-08-08] MEDS: ZOCOR TAB 20 MG PO SCH (21:04)
[2021-08-09] MEDS: NS 1,000 ML IV 1,000 ML IV SCH ×3 (00:51→20:34)
[2021-08-09 05:23] LABS: BASOPHILS % (AUTO) 0.6 % (0.2-1.0); EOSINOPHILS % (AUTO) 0.4 % (0.9-2.9); HEMATOCRIT 26.5 % (36.0-47.0); HEMOGLOBIN 9.5 g/dL (12.0-16.0); LYMPHOCYTES # (AUTO) 0.9 X10^3/uL (1.3-2.9); LYMPHOCYTES % (AUTO) 16.1 % (21.0-51.0); MEAN CORPUSCULAR HGB CONC 35.8 g/dL (33.0-35.0); MEAN PLATELET VOLUME 8.2 fL (7.4-11.0); MONOCYTES # (AUTO) 0.5 x10^3/uL (0.3-0.8); MONOCYTES % (AUTO) 9.1 % (0.0-13.0); NEUTROPHILS # (AUTO) 4.1 x10^3/uL (2.2-4.8); NEUTROPHILS % (AUTO) 73.8 % (42.0-75.0); PLATELET COUNT 301 X10^3/uL (150.0-450.0); RED BLOOD COUNT 2.88 X10^6/uL (3.5-5.4); RED CELL DISTRIBUTION WIDTH 22.3 % (11.6-16.5); WHITE BLOOD COUNT 5.6 X10^3/uL (3.6-10.0)
[2021-08-09 05:36] LABS: ALANINE AMINOTRANSFERASE 32 Units/L (12-78); ALBUMIN 2.3 g/dL (3.4-5.0); ALKALINE PHOSPHATASE 95 Units/L (46-116); ASPARTATE AMINO TRANSFERASE 33 Units/L (15-37); BLOOD UREA NITROGEN 7 mg/dL (7-18); CALCIUM 8.7 mg/dL (8.5-10.1); CHLORIDE 103 mmol/L (98-107); COR CA(FOR HYPOALB) 10.1 mg/dL (8.5-10.1); CREATININE 0.54 mg/dL (0.55-1.02); SODIUM 135 mmol/L (136-145); TOTAL PROTEIN 6.2 g/dL (6.4-8.2); eGFR NON BLACK RACES > 60 (>60)
[2021-08-09 05:49] LABS: PLATELET MORPHOLOGY COMMENT NORMAL (NORMAL)
[2021-08-09 05:50] LABS: ANISOCYTOSIS 2+
[2021-08-09] MEDS ORDERED: K-DUR TAB 20 MEQ PO PRN (05:59)
[2021-08-09] MEDS ORDERED: KLOR-CON PO PRN (05:59)
[2021-08-09] MEDS ORDERED: MICRO K EXTEN CAP 10 MEQ PO PRN (05:59)
[2021-08-09] MEDS ORDERED: POTASSIUM CHL 40 MEQ/NS 0.45% 500 ML IV PRN (05:59)
[2021-08-09] MEDS ORDERED: POTASSIUM CHLORIDE LIQ 20 MEQ UDC PO PRN (05:59)
[2021-08-09] MEDS ORDERED: POTASSIUM CHL 60 MEQ/NS 0.45% 500 ML IV PRN (05:59)
[2021-08-09] MEDS ORDERED: K-RIDER 10 MEQ/NS 100 ML 10 MEQ/100 ML BAG IV PRN (05:59)
[2021-08-09] MEDS: CARDIZEM CD 240 MG 24-HR PO SCH (08:04)
[2021-08-09] MEDS: LANOXIN or DIGITEK PO SCH (08:05)
[2021-08-09] MEDS: ELIQUIS PO SCH ×2 (08:05→20:52)
[2021-08-09] MEDS: PATIENT'S HOME MEDICATION PO SCH ×2 (08:06→20:52)
[2021-08-09] MEDS: MAGNESIUM SULFATE 1 GRAM/100 mL PREMIX 1 G/100 ML BAG IV PRN ×2 (08:07→11:13)
--- NOTE | 2021-08-09 08:15 | PCM.PROG ---
Progress Note Progress Note for Day of Date of Exam: 08/07/21 Subjective Subjective: Pt is a 80 year old female with a medical history of peritoneal carcinomatosis(on chemotherapy), hypertension, diabetes, that is a patient of Dr Reddy and presenting as a direct admit from clinic for anemia. She has been typed and screened and received 1 unit of packed red blood cells. Labs: Wbc 5.1, Hgb 7.7>8.1, Plt 330, Na 131, K 3.8, Creatinine 0.82, Glucose 88, D-dimer 5.0, Troponin negative, CTA: no pulmonary embolism. Home medications were resumed. Will give another unit of packed red blood cells for transfusion. Continue to monitor and follow up labs in the morning. Past Medical Family Social History Past Med/Fam/Surg Hx: No changes since H&P Allergies: Allergies No Known Drug Allergies Allergy (Verified 01/12/21 09:39) Review of Systems ROS: No change since H&P Vital Signs and I&O's Vital Signs: Temperature 98.4 F Pulse Rate [Brachial] 80 Pulse Rate 80 Respiratory Rate 21 Blood Pressure [Right Arm] 152/66 Blood Pressure [Left Arm] 143/79 Blood Pressure 138/68 O2 Sat by Pulse Oximetry 100 Intake and Output: Intake & Output 08/06/21 08/07/21 08/08/21 08/09/21 23:59 23:59 23:59 23:59 Intake Total 240 / 240 3 / 1653 2062 358 / 358 Balance 240 / 240 1653 / 1653 2062 358 / 358 Physical Exam Oriented: Normal Eyes: Normal Nose: Normal Respiratory: Normal Cardiovascular: Normal : Normal Auscultation: Bowel Sounds: Normal Palpation: Normal Tenderness: Normal Skin: Normal Musculoskeletal: Normal Psychiatric: Normal Mood Description: Calm Speech Pattern: Clear and Appropriate Laboratory and Diagnostics Result Diagrams: 08/09/21 05:00 08/09/21 05:00 Labs: Laboratory WBC 5.6 X10^3/uL (3.6-10.0) 08/09/21 05:00 RBC 2.88 X10^6/uL (3.5-5.4) L 08/09/21 05:00 Hgb 9.5 g/dL (12.0-16.0) L 08/09/21 05:00 Hct 26.5 % (36.0-47.0) L 08/09/21 05:00 MCV 92.0 fL (80.0-100.0) 08/09/21 05:00 MCH 33.0 pg (27.0-34.0) 08/09/21 05:00 MCHC 35.8 g/dL (33.0-35.0) H 08/09/21 05:00 RDW 22.3 % (11.6-16.5) H 08/09/21 05:00 Plt Count 301 X10^3/uL (150.0-450.0) 08/09/21 05:00 Plt Count Comment Adequate (ADEQUATE) 08/09/21 05:00 MPV 8.2 fL (7.4-11.0) 08/09/21 05:00 Neut % (Auto) 73.8 % (42.0-75.0) 08/09/21 05:00 Lymph % (Auto) 16.1 % (21.0-51.0) L 08/09/21 05:00 [place] % (Auto) 9.1 % (0.0-13.0) 08/09/21 05:00 Eos % (Auto) 0.4 % (0.9-2.9) L 08/09/21 05:00 Baso % (Auto) 0.6 % (0.2-1.0) 08/09/21 05:00 Neut # (Auto) 4.1 x10^3/uL (2.2-4.8) 08/09/21 05:00 Lymph # (Auto) 0.9 X10^3/uL (1.3-2.9) L 08/09/21 05:00 [place] # (Auto) 0.5 x10^3/uL (0.3-0.8) 08/09/21 05:00 Eos # (Auto) 0.0 x10^3/uL (0.0-0.2) 08/09/21 05:00 Baso # (Auto) 0.0 X10^3/uL (0.0-0.1) 08/09/21 05:00 Absolute Nucleated RBC 0.1 /100WBC 08/09/21 05:00 Plt Morphology Comment Normal (NORMAL) 08/09/21 05:00 RBC Morphology Abnormal (NORMAL) A 08/09/21 05:00 Dimorphic RBCs 2+ 08/08/21 04:34 Poikilocytosis 1+ A 08/06/21 19: Anisocytosis 2+ A 08/09/21 05:00 Tear Drop Cells Slight A 08/06/21 19: Ovalocytes Slight A 08/06/21 19: Heladio Cells Slight A 08/06/21 19: PT 18.6 SECONDS (11.8-14.3) 08/06/21 19: INR Target Range - 08/06/21: INR 1.64 (0.8-1.3) H 08/06/21 19: D-Dimer 5.05 ug/ml (0.0-0.57) H* 08/06/21 19: Sodium 135 mmol/L (136-145) L 08/09/21 05:00 Corrected Sodium TNP 08/09/21 05:00 Potassium 3.6 mmol/L (3.5-5.1) 08/09/21 05:00 Chloride 103 mmol/L (98-107) 08/09/21 05:00 Carbon Dioxide 21.0 mmol/L (21-32) 08/09/21 05:00 BUN 7 mg/dL (7-18) 08/09/21 05:00 Creatinine 0.54 mg/dL (0.55-1.02) L 08/09/21 05:00 Est GFR (MDRD) Af Amer > 60 (>60) 08/09/21 05:00 Est GFR (MDRD) Non-Af > 60 (>60) 08/09/21 05:00 Glucose 87 mg/dL (65-99) 08/09/21 05:00 Calcium 8.7 mg/dL (8.5-10.1) 08/09/21 05:00 Corrected Calcium 10.1 mg/dL (8.5-10.1) 08/09/21 05:00 Magnesium 1.9 mg/dL (1.7-2.9) 08/09/21 05:00 Iron 38 ug/dL (50-175) L 08/06/21 14:30 Transferrin 136 mg/dL (202-364) L 08/06/21 14:30 Ferritin 1169 ng/mL (8-252) H 08/06/21 14:30 Total Bilirubin 0.60 mg/dL (0.2-1.0) 08/09/21 05:00 AST 33 Units/L (15-37) 08/09/21 05:00 ALT 32 Units/L (12-78) 08/09/21 05:00 Alkaline Phosphatase 95 Units/L (46-116) 08/09/21 05:00 Creatine Kinase 19 Units/L (26-192) L 08/07/21 11:00 CK-MB (CK-2) < 1.0 ng/mL (0-4.0) 08/07/21 11:00 CK/CKMB % Calc 5.3 % (<4) 08/07/21 11:00 Troponin I < 0.02 ng/mL (0-1.5) 08/07/21 11:00 Total Protein 6.2 g/dL (6.4-8.2) L 08/09/21 05:00 Albumin 2.3 g/dL (3.4-5.0) L 08/09/21 05:00 Globulin 3.9 g/dL (2.5-4.5) 08/09/21 05:00 Albumin/Globulin Ratio 0.6 Ratio (1.1-2.1) L 08/09/21 05:00 Vitamin B12 1360 pg/mL (193-986) H 08/06/21 14:30 Folate 12.5 ng/mL (>8.6) 08/06/21 14:30 Digoxin 0.74 ng/mL (0.9-2) L 08/08/21 04:34 SARS CoV-2 RNA Rapid JOSE RAMON Negative (NEGATIVE) 08/06/21 17:26 Blood Type O POSITIVE 08/06/21 19:21 Antibody Screen Negative 08/06/21 19:21 Crossmatch See Detail 08/06/21 19:21 Plan (1) Symptomatic anemia: Status: Acute Plan: transfuse 2 units of packed red blood cells
--- NOTE | 2021-08-09 08:20 | PCM.PROG ---
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 Pt reports her symptoms of fatigue and shortness of breath have improved. She has received a total of two units of packed red blood cells. Her hemoglobin has appeared to be stabilized. Labs: Wbc 6.0, Hgb 8.1>9.6, Plt 317, Na 134, K 3.6, Creatinine 0.56, Glucose 85. She is currently receiving her home medication. Will continue to monitor and follow up labs and repeat hemoglobin in the morning. Past Medical Family Social History Past Med/Fam/Surg Hx: No changes since H&P Allergies: Allergies No Known Drug Allergies Allergy (Verified 01/12/21 09:39) Review of Systems ROS: No change since H&P Vital Signs and I&O's Vital Signs: Temperature 97.9 F Pulse Rate [Brachial] 80 Pulse Rate 80 Respiratory Rate 20 Blood Pressure [Right Arm] 120/56 Blood Pressure [Left Arm] 143/79 Blood Pressure 138/68 O2 Sat by Pulse Oximetry 100 Intake and Output: Intake & Output 08/06/21 08/07/21 08/08/21 08/09/21 23:59 23:59 23:59 23:59 Intake Total 240 / 240 1653 / 1653 2062 358 / 358 Balance 240 / 240 1653 / 1653 2062 358 / 358 Physical Exam Oriented: Normal Eyes: Normal Nose: Normal Respiratory: Normal Cardiovascular: Normal : Normal Auscultation: Bowel Sounds: Normal Tenderness: Normal Skin: Normal Musculoskeletal: Normal Psychiatric: Normal Mood Description: Calm Speech Pattern: Clear and Appropriate Laboratory and Diagnostics Result Diagrams: 08/09/21 05:00 08/09/21 05:00 Labs: Laboratory WBC 5.6 X10^3/uL (3.6-10.0) 08/09/21 05:00 RBC 2.88 X10^6/uL (3.5-5.4) L 08/09/21 05:00 Hgb 9.5 g/dL (12.0-16.0) L 08/09/21 05:00 Hct 26.5 % (36.0-47.0) L 08/09/21 05:00 MCV 92.0 fL (80.0-100.0) 08/09/21 05:00 MCH 33.0 pg (27.0-34.0) 08/09/21 05:00 MCHC 35.8 g/dL (33.0-35.0) H 08/09/21 05:00 RDW 22.3 % (11.6-16.5) H 08/09/21 05:00 Plt Count 301 X10^3/uL (150.0-450.0) 08/09/21 05:00 Plt Count Comment Adequate (ADEQUATE) 08/09/21 05:00 MPV 8.2 fL (7.4-11.0) 08/09/21 05:00 Neut % (Auto) 73.8 % (42.0-75.0) 08/09/21 05:00 Lymph % (Auto) 16.1 % (21.0-51.0) L 08/09/21 05:00 [place] % (Auto) 9.1 % (0.0-13.0) 08/09/21 05:00 Eos % (Auto) 0.4 % (0.9-2.9) L 08/09/21 05:00 Baso % (Auto) 0.6 % (0.2-1.0) 08/09/21 05:00 Neut # (Auto) 4.1 x10^3/uL (2.2-4.8) 08/09/21 05:00 Lymph # (Auto) 0.9 X10^3/uL (1.3-2.9) L 08/09/21 05:00 [place] # (Auto) 0.5 x10^3/uL (0.3-0.8) 08/09/21 05:00 Eos # (Auto) 0.0 x10^3/uL (0.0-0.2) 08/09/21 05:00 Baso # (Auto) 0.0 X10^3/uL (0.0-0.1) 08/09/21 05:00 Absolute Nucleated RBC 0.1 /100WBC 08/09/21 05:00 Plt Morphology Comment Normal (NORMAL) 08/09/21 05:00 RBC Morphology Abnormal (NORMAL) A 08/09/21 05:00 Dimorphic RBCs 2+ 08/08/21 04:34 Poikilocytosis 1+ A 08/06/21 19: Anisocytosis 2+ A 08/09/21 05:00 Tear Drop Cells Slight A 08/06/21 19: Ovalocytes Slight A 08/06/21 19: Heladio Cells Slight A 08/06/21 19: PT 18.6 SECONDS (11.8-14.3) 08/06/21 19: INR Target Range - 08/06/21: INR 1.64 (0.8-1.3) H 08/06/21 19: D-Dimer 5.05 ug/ml (0.0-0.57) H* 08/06/21 19: Sodium 135 mmol/L (136-145) L 08/09/21 05:00 Corrected Sodium TNP 08/09/21 05:00 Potassium 3.6 mmol/L (3.5-5.1) 08/09/21 05:00 Chloride 103 mmol/L (98-107) 08/09/21 05:00 Carbon Dioxide 21.0 mmol/L (21-32) 08/09/21 05:00 BUN 7 mg/dL (7-18) 08/09/21 05:00 Creatinine 0.54 mg/dL (0.55-1.02) L 08/09/21 05:00 Est GFR (MDRD) Af Amer > 60 (>60) 08/09/21 05:00 Est GFR (MDRD) Non-Af > 60 (>60) 08/09/21 05:00 Glucose 87 mg/dL (65-99) 08/09/21 05:00 Calcium 8.7 mg/dL (8.5-10.1) 08/09/21 05:00 Corrected Calcium 10.1 mg/dL (8.5-10.1) 08/09/21 05:00 Magnesium 1.9 mg/dL (1.7-2.9) 08/09/21 05:00 Iron 38 ug/dL (50-175) L 08/06/21 14:30 Transferrin 136 mg/dL (202-364) L 08/06/21 14:30 Ferritin 1169 ng/mL (8-252) H 08/06/21 14:30 Total Bilirubin 0.60 mg/dL (0.2-1.0) 08/09/21 05:00 AST 33 Units/L (15-37) 08/09/21 05:00 ALT 32 Units/L (12-78) 08/09/21 05:00 Alkaline Phosphatase 95 Units/L (46-116) 08/09/21 05:00 Creatine Kinase 19 Units/L (26-192) L 08/07/21 11:00 CK-MB (CK-2) < 1.0 ng/mL (0-4.0) 08/07/21 11:00 CK/CKMB % Calc 5.3 % (<4) 08/07/21 11:00 Troponin I < 0.02 ng/mL (0-1.5) 08/07/21 11:00 Total Protein 6.2 g/dL (6.4-8.2) L 08/09/21 05:00 Albumin 2.3 g/dL (3.4-5.0) L 08/09/21 05:00 Globulin 3.9 g/dL (2.5-4.5) 08/09/21 05:00 Albumin/Globulin Ratio 0.6 Ratio (1.1-2.1) L 08/09/21 05:00 Vitamin B12 1360 pg/mL (193-986) H 08/06/21 14:30 Folate 12.5 ng/mL (>8.6) 08/06/21 14:30 Digoxin 0.74 ng/mL (0.9-2) L 08/08/21 04:34 SARS CoV-2 RNA Rapid JOSE RAMON Negative (NEGATIVE) 08/06/21 17:26 Blood Type O POSITIVE 08/06/21 19:21 Antibody Screen Negative 08/06/21 19:21 Crossmatch See Detail 08/06/21 19:21 Plan (1) Symptomatic anemia: Status: Acute Plan: transfuse 2 units of packed red blood cells
[2021-08-09] MEDS: LASIX PO SCH ×2 (11:13→17:27)
--- NOTE | 2021-08-09 16:44 | PCM.PROG ---
Progress Note - Progress Note for Day of Date of Exam: 08/09/21 - Subjective Subjective: WAS ADMITTED ON 08/06 FOR TREATMENT OF ANEMIA AND SHORTNESS OF BREATH. SHE HAS RECEIVED TWO UNITS OF PACKED RED BLOOD CELLS SINCE ADMISSION. TODAY, SHE IS ALERT AND ORIENTED, LYING IN BED ON MORNING ROUNDS. SHE COMPLAINS OF WEAKNESS AND SHORTNESS OF BREATH AT TIMES. ON EXAMINATION, HEART IS REGULAR IN RATE AND RHYTHM. BILATERAL LUNGS ARE NOTED WITH DIMINISHED LUNG SOUNDS THROUGHOUT. ABDOMEN IS ROUND, SOFT, AND NON-TENDER WITH NORMAL BOWEL SOUNDS NOTED IN ALL QUADRANTS. HER VITALS THIS MORNING ARE: 97.9-80-20-100%-120/56. LABS WERE OBTAINED. ABNORMAL LAB VALUES INCLUDE THE FOLLOWING: RBC 2.88, HGB 9.5, HCT 26.5, SODIUM 135, CREATININE 0.54, TOTAL PROTEIN 6.2, ALBUMIN 2.3. SHE IS CURRENTLY RECEIVING NORMAL SALINE AT [facility], THE POTASSIUM AND MAGNESIUM PROTOCOLS, AND HER HOME MEDICATIONS WERE RESUMED. WE WILL CONTINUE WITH CURRENT PLAN OF CARE TODAY. OTHERWISE, WE PLAN TO FOLLOW UP WITH AM LABS AND CONTINUE TO MONITOR. TIME SPENT ON CLINICAL ASSESSMENT, REVIEWING LABS AND IMAGING, DECISION MAKING, AND DOCUMENTATION GREATER THAN 45 MINUTES. - Past Medical Family Social History Past Med/Fam/Surg Hx: No changes since H&P Allergies: Allergies No Known Drug Allergies Allergy (Verified 01/12/21 09:39) - Review of Systems ROS: No change since H&P - Vital Signs and I&O's Vital Signs: Temperature 98.3 F Pulse Rate [Brachial] 69 Pulse Rate 80 Respiratory Rate 18 Blood Pressure [Right Arm] 130/60 Blood Pressure [Left Arm] 143/79 Blood Pressure 138/68 O2 Sat by Pulse Oximetry 98 Intake and Output: Intake & Output 08/07/21 08/08/21 08/09/21 08/10/21 11:59 11:59 11:59 11:59 Intake Total 1043 / 1043 1103 / 1103 216 / 2168 Balance 1043 / 1043 1103 / 1103 2167 / 216 - Physical Exam Oriented: Normal Eyes: Normal Nose: Normal Respiratory: Normal Cardiovascular: Normal : Normal Auscultation: Bowel Sounds: Normal Palpation: Normal Tenderness: Normal Skin: Normal Musculoskeletal: Normal Psychiatric: Normal Mood Description: Calm Speech Pattern: Clear, Appropriate - Laboratory and Diagnostics Result Diagrams: 08/09/21 05:00 08/09/21 05:00 Labs: Laboratory WBC 5.6 X10^3/uL (3.6-10.0) 08/09/21 05:00 RBC 2.88 X10^6/uL (3.5-5.4) L 08/09/21 05:00 Hgb 9.5 g/dL (12.0-16.0) L 08/09/21 05:00 Hct 26.5 % (36.0-47.0) L 08/09/21 05:00 MCV 92.0 fL (80.0-100.0) 08/09/21 05:00 MCH 33.0 pg (27.0-34.0) 08/09/21 05:00 MCHC 35.8 g/dL (33.0-35.0) H 08/09/21 05:00 RDW 22.3 % (11.6-16.5) H 08/09/21 05:00 Plt Count 301 X10^3/uL (150.0-450.0) 08/09/21 05:00 Plt Count Comment Adequate (ADEQUATE) 08/09/21 05:00 MPV 8.2 fL (7.4-11.0) 08/09/21 05:00 Neut % (Auto) 73.8 % (42.0-75.0) 08/09/21 05:00 Lymph % (Auto) 16.1 % (21.0-51.0) L 08/09/21 05:00 [place] % (Auto) 9.1 % (0.0-13.0) 08/09/21 05:00 Eos % (Auto) 0.4 % (0.9-2.9) L 08/09/21 05:00 Baso % (Auto) 0.6 % (0.2-1.0) 08/09/21 05:00 Neut # (Auto) 4.1 x10^3/uL (2.2-4.8) 08/09/21 05:00 Lymph # (Auto) 0.9 X10^3/uL (1.3-2.9) L 08/09/21 05:00 [place] # (Auto) 0.5 x10^3/uL (0.3-0.8) 08/09/21 05:00 Eos # (Auto) 0.0 x10^3/uL (0.0-0.2) 08/09/21 05:00 Baso # (Auto) 0.0 X10^3/uL (0.0-0.1) 08/09/21 05:00 Absolute Nucleated RBC 0.1 /100WBC 08/09/21 05:00 Plt Morphology Comment Normal (NORMAL) 08/09/21 05:00 RBC Morphology Abnormal (NORMAL) A 08/09/21 05:00 Dimorphic RBCs 2+ 08/08/21 04:34 Poikilocytosis 1+ A 08/06/21 19: Anisocytosis 2+ A 08/09/21 05:00 Tear Drop Cells Slight A 08/06/21 19: Ovalocytes Slight A 08/06/21 19: Heladio Cells Slight A 08/06/21 19: PT 18.6 SECONDS (11.8-14.3) 08/06/21 19: INR Target Range - 08/06/21 19: INR 1.64 (0.8-1.3) H 08/06/21 19:21 D-Dimer 5.05 ug/ml (0.0-0.57) H* 08/06/21 19:21 Sodium 135 mmol/L (136-145) L 08/09/21 05:00 Corrected Sodium TNP 08/09/21 05:00 Potassium 3.6 mmol/L (3.5-5.1) 08/09/21 05:00 Chloride 103 mmol/L (98-107) 08/09/21 05:00 Carbon Dioxide 21.0 mmol/L (21-32) 08/09/21 05:00 BUN 7 mg/dL (7-18) 08/09/21 05:00 Creatinine 0.54 mg/dL (0.55-1.02) L 08/09/21 05:00 Est GFR (MDRD) Af Amer > 60 (>60) 08/09/21 05:00 Est GFR (MDRD) Non-Af > 60 (>60) 08/09/21 05:00 Glucose 87 mg/dL (65-99) 08/09/21 05:00 Calcium 8.7 mg/dL (8.5-10.1) 08/09/21 05:00 Corrected Calcium 10.1 mg/dL (8.5-10.1) 08/09/21 05:00 Magnesium 1.9 mg/dL (1.7-2.9) 08/09/21 05:00 Iron 38 ug/dL (50-175) L 08/06/21 14:30 Transferrin 136 mg/dL (202-364) L 08/06/21 14:30 Ferritin 1169 ng/mL (8-252) H 08/06/21 14:30 Total Bilirubin 0.60 mg/dL (0.2-1.0) 08/09/21 05:00 AST 33 Units/L (15-37) 08/09/21 05:00 ALT 32 Units/L (12-78) 08/09/21 05:00 Alkaline Phosphatase 95 Units/L (46-116) 08/09/21 05:00 Creatine Kinase 19 Units/L (26-192) L 08/07/21 11:00 CK-MB (CK-2) < 1.0 ng/mL (0-4.0) 08/07/21 11:00 CK/CKMB % Calc 5.3 % (<4) 08/07/21 11:00 Troponin I < 0.02 ng/mL (0-1.5) 08/07/21 11:00 Total Protein 6.2 g/dL (6.4-8.2) L 08/09/21 05:00 Albumin 2.3 g/dL (3.4-5.0) L 08/09/21 05:00 Globulin 3.9 g/dL (2.5-4.5) 08/09/21 05:00 Albumin/Globulin Ratio 0.6 Ratio (1.1-2.1) L 08/09/21 05:00 Vitamin B12 1360 pg/mL (193-986) H 08/06/21 14:30 Folate 12.5 ng/mL (>8.6) 08/06/21 14:30 Digoxin 0.74 ng/mL (0.9-2) L 08/08/21 04:34 SARS CoV-2 RNA Rapid JOSER AMON Negative (NEGATIVE) 08/06/21 17:26 Blood Type O POSITIVE 08/06/21 19:21 Antibody Screen Negative 08/06/21 19:21 Crossmatch See Detail 08/06/21 19:21 - Plan (1) Symptomatic anemia Status: Acute Plan: MONITOR AM LABS
[2021-08-09] MEDS: TYLENOL 325 MG TAB PO PRN (17:31)
[2021-08-09] MEDS: ZOCOR TAB 20 MG PO SCH (20:53)
[2021-08-10 06:13] LABS: BASOPHILS % (AUTO) 0.6 % (0.2-1.0); EOSINOPHILS % (AUTO) 0.4 % (0.9-2.9); HEMATOCRIT 26.4 % (36.0-47.0); HEMOGLOBIN 9.3 g/dL (12.0-16.0); LYMPHOCYTES % (AUTO) 19.2 % (21.0-51.0); MEAN CORPUSCULAR HGB CONC 35.3 g/dL (33.0-35.0); MEAN CORPUSCULAR VOLUME 93.5 fL (80.0-100.0); MEAN PLATELET VOLUME 8.5 fL (7.4-11.0); MONOCYTES # (AUTO) 0.5 x10^3/uL (0.3-0.8); MONOCYTES % (AUTO) 8.9 % (0.0-13.0); NEUTROPHILS # (AUTO) 3.8 x10^3/uL (2.2-4.8); NEUTROPHILS % (AUTO) 70.9 % (42.0-75.0); PLATELET COUNT 282 X10^3/uL (150.0-450.0); RED BLOOD COUNT 2.83 X10^6/uL (3.5-5.4); RED CELL DISTRIBUTION WIDTH 22.8 % (11.6-16.5); WHITE BLOOD COUNT 5.3 X10^3/uL (3.6-10.0)
[2021-08-10 06:40] LABS: ALANINE AMINOTRANSFERASE 33 Units/L (12-78); ALBUMIN 2.2 g/dL (3.4-5.0); ALKALINE PHOSPHATASE 95 Units/L (46-116); ASPARTATE AMINO TRANSFERASE 37 Units/L (15-37); BLOOD UREA NITROGEN 7 mg/dL (7-18); CALCIUM 8.4 mg/dL (8.5-10.1); CARBON DIOXIDE 22.4 mmol/L (21-32); CHLORIDE 104 mmol/L (98-107); COR CA(FOR HYPOALB) 9.8 mg/dL (8.5-10.1); CREATININE 0.53 mg/dL (0.55-1.02); MAGNESIUM 1.9 mg/dL (1.7-2.9); SODIUM 135 mmol/L (136-145); TOTAL PROTEIN 6.1 g/dL (6.4-8.2); eGFR NON BLACK RACES > 60 (>60)
[2021-08-10 07:21] LABS: ANISOCYTOSIS 2+; PLATELET MORPHOLOGY COMMENT NORMAL (NORMAL)
[2021-08-10] MEDS: CARDIZEM CD 240 MG 24-HR PO SCH (08:37)
[2021-08-10] MEDS: ELIQUIS PO SCH (08:38)
[2021-08-10] MEDS: PATIENT'S HOME MEDICATION PO SCH (08:38)
[2021-08-10] MEDS: LASIX PO SCH (08:39)
[2021-08-10] MEDS: LANOXIN or DIGITEK PO SCH (08:40)
[2021-08-10] MEDS: MAGNESIUM SULFATE 1 GRAM/100 mL PREMIX 1 G/100 ML BAG IV PRN ×2 (08:42→11:41)
[2021-08-10] MEDS ORDERED: MICRO K EXTEN CAP 10 MEQ PO SCH (09:00)
[2021-08-10 11:38] VITALS: BP 147/65
== END 2021-08-10 11:59 | disposition home health service (06) ==
LOC: MED/SURG
PROVIDERS: ADMIT Internal Medicine; ATTEND Internal Medicine
DX: I10 Essential (primary) hypertension; E11.65 Type 2 diabetes mellitus with hyperglycemia; R26.9 Unspecified abnormalities of gait and mobility; Z20.822 Contact with and (suspected) exposure to COVID-19; R79.89 Other specified abnormal findings of blood chemistry; Z92.21 Personal history of antineoplastic chemotherapy; D64.89 Other specified anemias; R79.1 Abnormal coagulation profile; R06.02 Shortness of breath

== ENCOUNTER 2021-08-21 17:22 | Inpatient (IN) ==
--- NOTE | 2021-08-21 18:34 | ED.ABDFE ---
HPI Time Seen Time Seen by Provider: 08/21/21 17:59 PCP Primary Care Physician: Barry HPI Comment HPI Comment: According to patient and family she ahs history of ovarian cancer with met. she has noticed gradual worsening of her belly that has increase din size. Pt has had no bowel movement for severeal days but has bene using prune juice .due to pain in the belly she has experienced increased shortness of breath Furthermore pt has hx of afib has bene taking digoxin and cardizem CD to keep rate under control Complaint Doctors Chief Complaint Comments: uncomfortable belly Chief Complaint:: Pt c/o abd pain, distention, constipation since and shortness of breath. Pt had bowel movement on arrival to er. COVID-19 Coronavirus risk:travel/contact w/high risk person: No Has patient experienced Coronavirus symptoms: No Source History Provided: Patient and Family Member Mode of arrival Mode of Arrival: Stretcher Timing Onset of Chief Complaint: 08/20/21 Came on: Gradually Duration Since Onset: Intermittent Duration: Days Location Location: Diffuse Modifying factors Improving Factors: Nothing Associated signs and symptoms Associated Signs and Symptoms: Constipation PMH PMH Past Medical History: Yes Past Medical History: Arthritis, Coronary Artery Disease, Diabetes, Dyslipidemia, GERD and Hypertension Past Medical History Comment: cancer Past Surgical History: Yes Surgical History: Bowel Resection Family History History of Family Medical Conditions: Yes Family Medical History: Diabetes Mellitus and Hypertension Social History Does any household member use tobacco: No Alcohol Use: None Do you use any recreational Drugs:: No Lives With: Family Lives Where: Home Travel Risk Coronavirus risk:travel/contact w/high risk person: No Has patient experienced Coronavirus symptoms: No Infectious screening In the last 2 months have you had wt loss of >10#?: NO Have you had fever, night sweats or hemotysis?: No Have you traveled outside the country in the last 6 months?: No Isolation: Standard ROS Review of Systems Constitutional: No Symptoms Reported Eyes: No Symptoms Reported ENTM: No Symptoms Reported Respiratoy: Short of Breath Cardiovascular: No Symptoms Reported Gastrointestinal/Abdominal: Abdominal Pain Integumentary: No Symptoms Reported PE Vital Signs Vitals: Temperature 98.1 F Pulse Rate [Apical] 97 Pulse Rate 130 Respiratory Rate 21 Blood Pressure [Right Arm] 154/63 Blood Pressure 172/84 O2 Sat by Pulse Oximetry 98 General Limitations: No Limitations General Appearance: Alert Head Head Exam: Other (temporal wasting ,cachectic ) Eyes Eye exam: PERRL ENT ENT Exam: Normal Oropharynx Neck Neck Exam: Full ROM Chest Chest Inspection: Normal Inspection and Symmetric Chest Wall Rise Respiratory Respiratory Exam: Bilateral: Clear to Auscultation Cardiovascular Cardiovascular Exam: Tachycardia and Irregular Rhythm Abdominal Exam Abdominal Exam: Normal Bowel Sounds and Distention Extremeties Extremities Exam: Normal Inspection and Full ROM Neurologic Neurological Exam: Alert Skin Skin Exam: Warm MDM Differential Diagnosis Other differential diagnosis: ascites ,abdominal distension .hx of ovarian canc er with mets ROR Labs Reviewed Result Diagrams: 08/21/21 18:25 08/21/21 18:25 Laboratory: WBC 9.8 X10^3/uL (3.6-10.0) 08/21/21 18:25 RBC 2.45 X10^6/uL (3.5-5.4) L 08/21/21 18:25 Hgb 8.1 g/dL (12.0-16.0) L 08/21/21 18:25 Hct 23.2 % (36.0-47.0) L 08/21/21 18:25 MCV 94.8 fL (80.0-100.0) 08/21/21 18:25 MCH 33.0 pg (27.0-34.0) 08/21/21 18:25 MCHC 34.8 g/dL (33.0-35.0) 08/21/21 18:25 RDW 23.0 % (11.6-16.5) H 08/21/21 18:25 Plt Count 323 X10^3/uL (150.0-450.0) 08/21/21 18:25 Plt Count Comment Adequate (ADEQUATE) 08/21/21 18:25 MPV 8.9 fL (7.4-11.0) 08/21/21 18:25 Neut % (Auto) 83.4 % (42.0-75.0) H 08/21/21 18:25 Lymph % (Auto) 9.6 % (21.0-51.0) L 08/21/21 18:25 [place] % (Auto) 6.4 % (0.0-13.0) 08/21/21 18:25 Eos % (Auto) 0.0 % (0.9-2.9) L 08/21/21 18:25 Baso % (Auto) 0.6 % (0.2-1.0) 08/21/21 18: Neut # (Auto) 8.1 x10^3/uL (2.2-4.8) H 08/21/21 18:25 Lymph # (Auto) 0.9 X10^3/uL (1.3-2.9) L 08/21/21 18: [place] # (Auto) 0.6 x10^3/uL (0.3-0.8) 08/21/21 18:25 Eos # (Auto) 0.0 x10^3/uL (0.0-0.2) 08/21/21 18: Baso # (Auto) 0.1 X10^3/uL (0.0-0.1) 08/21/21 18: Absolute Nucleated RBC 0.1 /100WBC 08/21/21 18: Plt Morphology Comment Normal (NORMAL) 08/21/21 18: RBC Morphology Abnormal (NORMAL) A 08/21/21 18: Dimorphic RBCs Slight 08/21/21 18:25 Hypochromasia Slight A 08/21/21 18:25 Poikilocytosis 2+ A 08/21/21 18: Anisocytosis 2+ A 08/21/21 18: Ovalocytes 1+ A 08/21/21 18: Acanthocytes (Spur) 1+ 08/21/21 18: Schistocytes Slight A 08/21/21 18:25 Sodium 130 mmol/L (136-145) L 08/21/21 18:25 Corrected Sodium TNP 08/21/21 18:25 Potassium 3.7 mmol/L (3.5-5.1) 08/21/21 18: Chloride 96 mmol/L (98-107) L 08/21/21 18: Carbon Dioxide 22.2 mmol/L (21-32) 08/21/21 18:25 BUN 16 mg/dL (7-18) 08/21/21 18: Creatinine 1.00 mg/dL (0.55-1.02) 08/21/21 18:25 Est GFR (MDRD) Af Amer > 60 (>60) 08/21/21 18:25 Est GFR (MDRD) Non-Af 56 (>60) L 08/21/21 18:25 Glucose 109 mg/dL (65-99) H 08/21/21 18:25 Calcium 9.1 mg/dL (8.5-10.1) 08/21/21 18:25 Corrected Calcium 10.3 mg/dL (8.5-10.1) H 08/21/21 18:25 Total Bilirubin 0.60 mg/dL (0.2-1.0) 08/21/21 18:25 AST 44 Units/L (15-37) H 08/21/21 18:25 ALT 38 Units/L (12-78) 08/21/21 18:25 Alkaline Phosphatase 127 Units/L (46-116) H 08/21/21 18:25 Total Protein 7.0 g/dL (6.4-8.2) 08/21/21 18:25 Albumin 2.5 g/dL (3.4-5.0) L 08/21/21 18:25 Globulin 4.5 g/dL (2.5-4.5) 08/21/21 18:25 Albumin/Globulin Ratio 0.6 Ratio (1.1-2.1) L 08/21/21 18:25 SARS-CoV-2 (PCR) Negative (NEGATIVE) 08/21/21 19:08 Influenza Type A (PCR) Negative (NEGATIVE) 08/21/21 19:08 Influenza Type B (PCR) Negative (NEGATIVE) 08/21/21 19:08 RSV (PCR) Negative (NEGATIVE) 08/21/21 19:08 Opioid Opioid Risk Tool Age (Levi box if 16-45): No History of Preadolescent Sexual Abuse: No Total: 0 Total Score Risk Category: Low Risk Copyright: [facility] predicting aberrant behaviors Diagnosis Discharge Problem: Ascites, malignant, Abdominal distention Atrial fibrillation Qualifiers: Atrial fibrillation type: unspecified Qualified Code(s): I48.91 - Unspecified atrial fibrillation Instructions Forms: [facility] Patient [facility] Social Distancing ADDITIONAL NOTES Additional Notes Additional Notes: patient has significant ascites .spoke with Dr Harden for palliative paracentesis. Spoke with Dr Chowdary agreed to admit patient
[2021-08-21 18:40] LABS: BASOPHILS # (AUTO) 0.1 X10^3/uL (0.0-0.1); BASOPHILS % (AUTO) 0.6 % (0.2-1.0); HEMATOCRIT 23.2 % (36.0-47.0); HEMOGLOBIN 8.1 g/dL (12.0-16.0); LYMPHOCYTES # (AUTO) 0.9 X10^3/uL (1.3-2.9); LYMPHOCYTES % (AUTO) 9.6 % (21.0-51.0); MEAN CORPUSCULAR HGB CONC 34.8 g/dL (33.0-35.0); MEAN CORPUSCULAR VOLUME 94.8 fL (80.0-100.0); MEAN PLATELET VOLUME 8.9 fL (7.4-11.0); MONOCYTES # (AUTO) 0.6 x10^3/uL (0.3-0.8); MONOCYTES % (AUTO) 6.4 % (0.0-13.0); NEUTROPHILS # (AUTO) 8.1 x10^3/uL (2.2-4.8); NEUTROPHILS % (AUTO) 83.4 % (42.0-75.0); PLATELET COUNT 323 X10^3/uL (150.0-450.0); RED BLOOD COUNT 2.45 X10^6/uL (3.5-5.4); WHITE BLOOD COUNT 9.8 X10^3/uL (3.6-10.0)
[2021-08-21 18:51] LABS: ALANINE AMINOTRANSFERASE 38 Units/L (12-78); ALBUMIN 2.5 g/dL (3.4-5.0); ALKALINE PHOSPHATASE 127 Units/L (46-116); ASPARTATE AMINO TRANSFERASE 44 Units/L (15-37); BLOOD UREA NITROGEN 16 mg/dL (7-18); CALCIUM 9.1 mg/dL (8.5-10.1); CARBON DIOXIDE 22.2 mmol/L (21-32); CHLORIDE 96 mmol/L (98-107); COR CA(FOR HYPOALB) 10.3 mg/dL (8.5-10.1); SODIUM 130 mmol/L (136-145); eGFR NON BLACK RACES 56 (>60)
[2021-08-21] MEDS ORDERED: CARDIZEM INJ 50 MG VIAL ONE (18:56)
[2021-08-21 18:58] LABS: PLATELET MORPHOLOGY COMMENT NORMAL (NORMAL)
[2021-08-21 18:59] LABS: ANISOCYTOSIS 2+; HYPOCHROMASIA SLIGHT; POIKILOCYTOSIS 2+
[2021-08-21 19:01] LABS: OVALOCYTES 1+
[2021-08-21 19:02] LABS: SCHISTOCYTES SLIGHT
[2021-08-21] MEDS ORDERED: CARDIZEM INJ 50 MG VIAL IVP ONE (19:02)
[2021-08-21] MEDS ORDERED: COMPAZINE PO PRN (22:20)
[2021-08-21 23:49] VITALS: BMI 21.9
[2021-08-22 05:14] LABS: BASOPHILS % (AUTO) 0.5 % (0.2-1.0); HEMATOCRIT 20.5 % (36.0-47.0); HEMOGLOBIN 7.2 g/dL (12.0-16.0); LYMPHOCYTES # (AUTO) 0.9 X10^3/uL (1.3-2.9); LYMPHOCYTES % (AUTO) 12.2 % (21.0-51.0); MEAN CORPUSCULAR HGB CONC 35.2 g/dL (33.0-35.0); MEAN CORPUSCULAR VOLUME 93.5 fL (80.0-100.0); MONOCYTES # (AUTO) 0.5 x10^3/uL (0.3-0.8); MONOCYTES % (AUTO) 6.7 % (0.0-13.0); NEUTROPHILS % (AUTO) 80.6 % (42.0-75.0); PLATELET COUNT 316 X10^3/uL (150.0-450.0); RED CELL DISTRIBUTION WIDTH 23.2 % (11.6-16.5); WHITE BLOOD COUNT 7.4 X10^3/uL (3.6-10.0)
[2021-08-22 05:28] LABS: ALANINE AMINOTRANSFERASE 33 Units/L (12-78); ALBUMIN 2.2 g/dL (3.4-5.0); ALKALINE PHOSPHATASE 108 Units/L (46-116); ASPARTATE AMINO TRANSFERASE 38 Units/L (15-37); BLOOD UREA NITROGEN 16 mg/dL (7-18); CALCIUM 8.8 mg/dL (8.5-10.1); CARBON DIOXIDE 22.9 mmol/L (21-32); CHLORIDE 98 mmol/L (98-107); COR CA(FOR HYPOALB) 10.2 mg/dL (8.5-10.1); CREATININE 0.89 mg/dL (0.55-1.02); DIGOXIN 0.95 ng/mL (0.9-2); SODIUM 132 mmol/L (136-145); TOTAL PROTEIN 6.2 g/dL (6.4-8.2); eGFR NON BLACK RACES > 60 (>60)
[2021-08-22 05:43] LABS: ANISOCYTOSIS 2+; HYPOCHROMASIA SLIGHT; PLATELET MORPHOLOGY COMMENT NORMAL (NORMAL)
[2021-08-22 05:44] LABS: BURR CELLS SLIGHT; OVALOCYTES SLIGHT; SCHISTOCYTES SLIGHT
[2021-08-22] MEDS: GLUCOPHAGE PO SCH ×2 (06:07→16:53)
[2021-08-22] MEDS: K-DUR TAB 20 MEQ PO SCH ×2 (08:51→20:26)
[2021-08-22] MEDS: ELIQUIS PO SCH ×2 (08:51→20:25)
[2021-08-22] MEDS: CARDIZEM CD 240 MG 24-HR PO SCH (08:51)
[2021-08-22] MEDS: LANOXIN or DIGITEK PO SCH (08:51)
[2021-08-22] MEDS: MEGACE PO SCH ×2 (08:52→20:25)
[2021-08-22] MEDS: PATIENT'S HOME MEDICATION PO SCH ×2 (08:52→20:32)
[2021-08-22] MEDS: LASIX PO SCH ×2 (08:52→16:54)
[2021-08-22] MEDS ORDERED: PATIENT'S HOME MEDICATION PO SCH ×2 (09:00)
[2021-08-22] MEDS ORDERED: LASIX IVP ONE (11:08)
[2021-08-22] MEDS ORDERED: NS 500 ML IV 500 ML IV ONE (11:55)
[2021-08-22 12:22] LABS: BILIRUBIN,URINE NEGATIVE (NEGATIVE); BLOOD/HEMOGLOBIN,URINE 1+ (NEGATIVE); GLUCOSE, URINE NEGATIVE (NEGATIVE); KETONES,URINE NEGATIVE (NEGATIVE); LEUKOCYTE ESTERASE ,URINE NEGATIVE (NEGATIVE); NITRITES,URINE NEGATIVE (NEGATIVE); PROTEIN,URINE 2+ (NEGATIVE); UROBILINOGEN,URINE NORMAL (NORMAL)
[2021-08-22 12:33] LABS: APPEARANCE,URINE CLEAR (CLEAR); COLOR,URINE YELLOW (YELLOW)
[2021-08-22 12:34] LABS: RBC,URINE 0-2 /HPF (0-3)
[2021-08-22 12:35] LABS: BACTERIA,URINE 1+ /HPF (NEGATIVE); GRANULAR CASTS,URINE FEW /LPF (NEGATIVE); HYALINE CASTS, URINE MANY /LPF (NEGATIVE); SQUAMOUS EPITHELIAL CELL,UR MANY /HPF (NEGATIVE)
--- NOTE | 2021-08-22 12:43 | RAD ---
HISTORYAbdominal pain [id number]/2021 br.br.br.br bowel segments. Diffuse opacity of the abdomen may represent ascites. Visceral outlines obscured. No discrete mass or abnormal calcification.IMPRESSIONDistended bowel, probably colon, consistent with ileus or distal obstruction. Probable ascites, which may be related to peritoneal carcinomatosis as described on previous abdomen CT.Electronically signed by: BARRETT ALDRIDGE (Aug 22, 2021 12:41:16)
[2021-08-22] MEDS ORDERED: BENADRYL CAP/TAB 25 MG PO ONE (13:00)
[2021-08-22] MEDS: TYLENOL 325 MG TAB PO PRN (13:20)
[2021-08-22] MEDS ORDERED: LASIX ONE (16:39)
[2021-08-22 17:40] LABS: HEMATOCRIT 23.8 % (36.0-47.0)
[2021-08-22 17:41] LABS: HEMOGLOBIN 8.2 g/dL (12.0-16.0)
[2021-08-22] MEDS ORDERED: GLUCOPHAGE ONE (19:16)
--- NOTE | 2021-08-22 19:40 | DR.H&P ---
H&P History & Physical for Day of: H&P Date: 08/21/21 Chief Complaint Chief Complaint: Uncomfortable Abdomen Allergies Allergies Allergy/AdvReac Type Severity Reaction Status Date / Time No Known Drug Allergies Allergy Verified 01/12/21 09:39 History of Present Illness History of Present Illness: 81 yo wf with a history of ovarian cancer with mets. She has been having an increasing distention of her abdomen for several days with constipation and SOB for 2 days now. She has been having generalized pain in her abdomen. SOB has gotten worse with increased abdominal distention. Past Medical History Past Medical History: Arthritis, Coronary Artery Disease, Diabetes, Dyslipidemia, GERD and Hypertension Additional Medical History: Hx Diverticulitis, Colon Cancer, Constipation Past Surgical History Surgical History: Bowel Resection Additional Surgical History: Previous heart cath Family History Family Medical History: Diabetes Mellitus and Hypertension Social History Does patient currently use any type of tobacco product: No Have you used tobacco products in the last 12 months: No Does any household member use tobacco: No Alcohol Use: None Drug Use: None Medications Home Medications: No Known Drug Allergies Allergy (Verified 01/12/21 09:39) Labs Result Diagrams: 08/22/21 17:30 08/22/21 04:20 Labs: Laboratory WBC 7.4 X10^3/uL (3.6-10.0) 08/22/21 04:20 RBC 2.20 X10^6/uL (3.5-5.4) L 08/22/21 04:20 Hgb 8.2 g/dL (12.0-16.0) L 08/22/21 17:30 Hct 23.8 % (36.0-47.0) L 08/22/21 17:30 MCV 93.5 fL (80.0-100.0) 08/22/21 04:20 MCH 33.0 pg (27.0-34.0) 08/22/21 04:20 MCHC 35.2 g/dL (33.0-35.0) H 08/22/21 04:20 RDW 23.2 % (11.6-16.5) H 08/22/21 04:20 Plt Count 316 X10^3/uL (150.0-450.0) 08/22/21 04:20 Plt Count Comment Adequate (ADEQUATE) 08/22/21 04:20 MPV 9.0 fL (7.4-11.0) 08/22/21 04:20 Neut % (Auto) 80.6 % (42.0-75.0) H 08/22/21 04:20 Lymph % (Auto) 12.2 % (21.0-51.0) L 08/22/21 04:20 [place] % (Auto) 6.7 % (0.0-13.0) 08/22/21 04:20 Eos % (Auto) 0.0 % (0.9-2.9) L 08/22/21 04:20 Baso % (Auto) 0.5 % (0.2-1.0) 08/22/21 04:20 Neut # (Auto) 6.0 x10^3/uL (2.2-4.8) H 08/22/21 04:20 Lymph # (Auto) 0.9 X10^3/uL (1.3-2.9) L 08/22/21 04:20 [place] # (Auto) 0.5 x10^3/uL (0.3-0.8) 08/22/21 04:20 Eos # (Auto) 0.0 x10^3/uL (0.0-0.2) 08/22/21 04:20 Baso # (Auto) 0.0 X10^3/uL (0.0-0.1) 08/22/21 04:20 Absolute Nucleated RBC 0.0 /100WBC 08/22/21 04:20 Plt Morphology Comment Normal (NORMAL) 08/22/21 04:20 RBC Morphology Abnormal (NORMAL) A 08/22/21 04:20 Dimorphic RBCs Slight 08/21/21 18:25 Hypochromasia Slight A 08/22/21 04:20 Poikilocytosis 2+ A 08/21/21 18:25 Anisocytosis 2+ A 08/22/21 04:20 Ovalocytes Slight A 08/22/21 04:20 Heladio Cells Slight A 08/22/21 04:20 Acanthocytes (Spur) Slight 08/22/21 04:20 Schistocytes Slight A 08/22/21 04:20 Sodium 132 mmol/L (136-145) L 08/22/21 04:20 Corrected Sodium TNP 08/22/21 04:20 Potassium 3.8 mmol/L (3.5-5.1) 08/22/21 04:20 Chloride 98 mmol/L (98-107) 08/22/21 04:20 Carbon Dioxide 22.9 mmol/L (21-32) 08/22/21 04:20 BUN 16 mg/dL (7-18) 08/22/21 04:20 Creatinine 0.89 mg/dL (0.55-1.02) 08/22/21 04:20 Est GFR (MDRD) Af Amer > 60 (>60) 08/22/21 04:20 Est GFR (MDRD) Non-Af > 60 (>60) 08/22/21 04:20 Glucose 91 mg/dL (65-99) 08/22/21 04:20 POC Glucose (mg/dL) 75 mg/dL (65-99) 08/22/21 16:44 Calcium 8.8 mg/dL (8.5-10.1) 08/22/21 04:20 Corrected Calcium 10.2 mg/dL (8.5-10.1) H 08/22/21 04:20 Total Bilirubin 0.60 mg/dL (0.2-1.0) 08/22/21 04:20 AST 38 Units/L (15-37) H 08/22/21 04:20 ALT 33 Units/L (12-78) 08/22/21 04:20 Alkaline Phosphatase 108 Units/L (46-116) 08/22/21 04:20 Total Protein 6.2 g/dL (6.4-8.2) L 08/22/21 04:20 Albumin 2.2 g/dL (3.4-5.0) L 08/22/21 04:20 Globulin 4.0 g/dL (2.5-4.5) 08/22/21 04:20 Albumin/Globulin Ratio 0.6 Ratio (1.1-2.1) L 08/22/21 04:20 Specimen Type Catherized urine 08/22/21 11:50 Urine Color Yellow (YELLOW) 08/22/21 11:50 Urine Appearance Clear (CLEAR) 08/22/21 11:50 Urine pH 5.0 (5.0 - 8.0) 08/22/21 11:50 Ur Specific [place] 1.025 (1.000-1.030) 08/22/21 11:50 Urine Protein 2+ (NEGATIVE) 08/22/21 11:50 Urine Glucose (UA) Negative (NEGATIVE) 08/22/21 11:50 Urine Ketones Negative (NEGATIVE) 08/22/21 11:50 Urine Occult Blood 1+ (NEGATIVE) 08/22/21 11:50 Urine Nitrite Negative (NEGATIVE) 08/22/21 11:50 Urine Bilirubin Negative (NEGATIVE) 08/22/21 11:50 Urine Urobilinogen Normal (NORMAL) 08/22/21 11:50 Ur Leukocyte Esterase Negative (NEGATIVE) 08/22/21 11:50 Urine RBC 0-2 /HPF (0-3) 08/22/21 11:50 Urine WBC 3-5 /HPF (0-5) 08/22/21 11:50 Ur Squamous Epith Cells Many /HPF (NEGATIVE) 08/22/21 11:50 Urine Bacteria 1+ /HPF (NEGATIVE) 08/22/21 11:50 Hyaline Casts Many /LPF (NEGATIVE) 08/22/21 11:50 Granular Casts Few /LPF (NEGATIVE) 08/22/21 11:50 Ur Culture Indicated? No/not indicated 08/22/21 11:50 Digoxin 0.95 ng/mL (0.9-2) 08/22/21 04:20 SARS-CoV-2 (PCR) Negative (NEGATIVE) 08/21/21 19:08 Influenza Type A (PCR) Negative (NEGATIVE) 08/21/21 19:08 Influenza Type B (PCR) Negative (NEGATIVE) 08/21/21 19:08 RSV (PCR) Negative (NEGATIVE) 08/21/21 19:08 Blood Type O POSITIVE 08/22/21 11:30 Antibody Screen Negative 08/22/21 11:30 Crossmatch See Detail 08/22/21 11:30 Review of Systems Constitutional: Weakness and Malaise Eyes: No Symptoms Reported Respiratory: Shortness of Breath Cardiovascular: Edema Gastrointestinal: Constipation Genitourinary: No Symptoms Reported Musculoskeletal: No Symptoms Reported Skin: No Symptoms Reported Neurological: Weakness Physical Exam Vital Signs: Temperature 97.7 F Pulse Rate [Apical] 109 Pulse Rate 120 Respiratory Rate 22 Blood Pressure [Right Arm] 128/58 Blood Pressure 172/84 O2 Sat by Pulse Oximetry 95 Oriented: Normal Eyes: Normal Ear: Normal Nose: Normal Throat: Normal Respiratory: Clear Throughout Cardiovascular: Normal : Normal Auscultation: Bowel Sounds: Decreased Palpation: Other Tenderness: Diffuse Skin: Normal Musculoskeletal: Normal Psychiatric: Normal Mood Description: Calm Affect: Normal Speech Pattern: Clear and Appropriate Assessment/Plan (1) Abdominal distention: Status: Acute (2) Abdominal ascites: Qualifiers: Ascites type: malignant Qualified Code(s): R18.0 - Malignant ascites Status: Acute Plan: Dr. Goode has been consulted and will do a paracentesis. (3) Atrial fibrillation: Qualifiers: Atrial fibrillation type: unspecified Qualified Code(s): I48.91 - Unspecified atrial fibrillation Status: Acute (4) Symptomatic anemia: Status: Acute Plan: Repeat CBC in am. If Hb is dropping will plan an transfusing PRBC's. (5) Colon cancer: Qualifiers: Colon location: unspecified part of colon Qualified Code(s): C18.9 - Malignant neoplasm of colon, unspecified Status: Acute (6) Hypertension: Status: Chronic (7) Diabetes: Status: Chronic (8) Ascites, malignant: Status: Chronic (9) Hyponatremia: Status: Acute Plan: NS IVF hydration.
--- NOTE | 2021-08-22 19:57 | PCM.PROG ---
Progress Note Progress Note for Day of Date of Exam: 08/22/21 Subjective Subjective: The patient continues to complain about abdominal discomfort. She is currently awaiting paracentesis. Past Medical Family Social History Past Med/Fam/Surg Hx: No changes since H&P Allergies: Allergies No Known Drug Allergies Allergy (Verified 01/12/21 09:39) Review of Systems ROS: No change since H&P Vital Signs and I&O's Vital Signs: Temperature 97.7 F Pulse Rate [Apical] 109 Pulse Rate 120 Respiratory Rate 22 Blood Pressure [Right Arm] 128/58 Blood Pressure 172/84 O2 Sat by Pulse Oximetry 95 Intake and Output: Intake & Output 08/20/21 08/21/21 08/22/21 08/23/21 11:59 11:59 11:59 11:59 Intake Total 1060 / 1060 460 / 460 Output Total 100 / 100 Balance 1060 / 1060 360 / 360 Physical Exam Oriented: Normal Eyes: Normal Ear: Normal Nose: Normal Throat: Normal Respiratory: Normal Cardiovascular: Normal : Normal Auscultation: Bowel Sounds: Decreased Palpation: Other (Abdominal distension is present.) Tenderness: Diffuse Skin: Normal Musculoskeletal: Normal Psychiatric: Normal Mood Description: Calm Affect: Normal Speech Pattern: Clear and Appropriate Laboratory and Diagnostics Result Diagrams: 08/22/21 17:30 08/22/21 04:20 Labs: Laboratory WBC 7.4 X10^3/uL (3.6-10.0) 08/22/21 04:20 RBC 2.20 X10^6/uL (3.5-5.4) L 08/22/21 04:20 Hgb 8.2 g/dL (12.0-16.0) L 08/22/21 17:30 Hct 23.8 % (36.0-47.0) L 08/22/21 17:30 MCV 93.5 fL (80.0-100.0) 08/22/21 04:20 MCH 33.0 pg (27.0-34.0) 08/22/21 04:20 MCHC 35.2 g/dL (33.0-35.0) H 08/22/21 04:20 RDW 23.2 % (11.6-16.5) H 08/22/21 04:20 Plt Count 316 X10^3/uL (150.0-450.0) 08/22/21 04:20 Plt Count Comment Adequate (ADEQUATE) 08/22/21 04:20 MPV 9.0 fL (7.4-11.0) 08/22/21 04:20 Neut % (Auto) 80.6 % (42.0-75.0) H 08/22/21 04:20 Lymph % (Auto) 12.2 % (21.0-51.0) L 08/22/21 04:20 [place] % (Auto) 6.7 % (0.0-13.0) 08/22/21 04:20 Eos % (Auto) 0.0 % (0.9-2.9) L 08/22/21 04:20 Baso % (Auto) 0.5 % (0.2-1.0) 08/22/21 04:20 Neut # (Auto) 6.0 x10^3/uL (2.2-4.8) H 08/22/21 04:20 Lymph # (Auto) 0.9 X10^3/uL (1.3-2.9) L 08/22/21 04:20 [place] # (Auto) 0.5 x10^3/uL (0.3-0.8) 08/22/21 04:20 Eos # (Auto) 0.0 x10^3/uL (0.0-0.2) 08/22/21 04:20 Baso # (Auto) 0.0 X10^3/uL (0.0-0.1) 08/22/21 04:20 Absolute Nucleated RBC 0.0 /100WBC 08/22/21 04:20 Plt Morphology Comment Normal (NORMAL) 08/22/21 04:20 RBC Morphology Abnormal (NORMAL) A 08/22/21 04:20 Dimorphic RBCs Slight 08/21/21 18:25 Hypochromasia Slight A 08/22/21 04:20 Poikilocytosis 2+ A 08/21/21 18:25 Anisocytosis 2+ A 08/22/21 04:20 Ovalocytes Slight A 08/22/21 04:20 [place] Cells Slight A 08/22/21 04:20 Acanthocytes (Spur) Slight 08/22/21 04:20 Schistocytes Slight A 08/22/21 04:20 Sodium 132 mmol/L (136-145) L 08/22/21 04:20 Corrected Sodium TNP 08/22/21 04:20 Potassium 3.8 mmol/L (3.5-5.1) 08/22/21 04:20 Chloride 98 mmol/L (98-107) 08/22/21 04:20 Carbon Dioxide 22.9 mmol/L (21-32) 08/22/21 04:20 BUN 16 mg/dL (7-18) 08/22/21 04:20 Creatinine 0.89 mg/dL (0.55-1.02) 08/22/21 04:20 Est GFR (MDRD) Af Amer > 60 (>60) 08/22/21 04:20 Est GFR (MDRD) Non-Af > 60 (>60) 08/22/21 04:20 Glucose 91 mg/dL (65-99) 08/22/21 04:20 POC Glucose (mg/dL) 89 mg/dL (65-99) 08/22/21 19:44 Calcium 8.8 mg/dL (8.5-10.1) 08/22/21 04:20 Corrected Calcium 10.2 mg/dL (8.5-10.1) H 08/22/21 04:20 Total Bilirubin 0.60 mg/dL (0.2-1.0) 08/22/21 04:20 AST 38 Units/L (15-37) H 08/22/21 04:20 ALT 33 Units/L (12-78) 08/22/21 04:20 Alkaline Phosphatase 108 Units/L (46-116) 08/22/21 04:20 Total Protein 6.2 g/dL (6.4-8.2) L 08/22/21 04:20 Albumin 2.2 g/dL (3.4-5.0) L 08/22/21 04:20 Globulin 4.0 g/dL (2.5-4.5) 08/22/21 04:20 Albumin/Globulin Ratio 0.6 Ratio (1.1-2.1) L 08/22/21 04:20 Specimen Type Catherized urine 08/22/21 11:50 Urine Color Yellow (YELLOW) 08/22/21 11:50 Urine Appearance Clear (CLEAR) 08/22/21 11:50 Urine pH 5.0 (5.0 - 8.0) 08/22/21 11:50 Ur Specific [place] 1.025 (1.000-1.030) 08/22/21 11:50 Urine Protein 2+ (NEGATIVE) 08/22/21 11:50 Urine Glucose (UA) Negative (NEGATIVE) 08/22/21 11:50 Urine Ketones Negative (NEGATIVE) 08/22/21 11:50 Urine Occult Blood 1+ (NEGATIVE) 08/22/21 11:50 Urine Nitrite Negative (NEGATIVE) 08/22/21 11:50 Urine Bilirubin Negative (NEGATIVE) 08/22/21 11:50 Urine Urobilinogen Normal (NORMAL) 08/22/21 11:50 Ur Leukocyte Esterase Negative (NEGATIVE) 08/22/21 11:50 Urine RBC 0-2 /HPF (0-3) 08/22/21 11:50 Urine WBC 3-5 /HPF (0-5) 08/22/21 11:50 Ur Squamous Epith Cells Many /HPF (NEGATIVE) 08/22/21 11:50 Urine Bacteria 1+ /HPF (NEGATIVE) 08/22/21 11:50 Hyaline Casts Many /LPF (NEGATIVE) 08/22/21 11:50 Granular Casts Few /LPF (NEGATIVE) 08/22/21 11:50 Ur Culture Indicated? No/not indicated 08/22/21 11:50 Digoxin 0.95 ng/mL (0.9-2) 08/22/21 04:20 SARS-CoV-2 (PCR) Negative (NEGATIVE) 08/21/21 19:08 Influenza Type A (PCR) Negative (NEGATIVE) 08/21/21 19:08 Influenza Type B (PCR) Negative (NEGATIVE) 08/21/21 19:08 RSV (PCR) Negative (NEGATIVE) 08/21/21 19:08 Blood Type O POSITIVE 08/22/21 11:30 Antibody Screen Negative 08/22/21 11:30 Crossmatch See Detail 08/22/21 11:30 Radiology Reviewed: Yes Plan (1) Abdominal distention: Status: Acute Plan: Recheck after paracentesis. (2) Abdominal ascites: Status: Acute Qualifiers: Ascites type: malignant Qualified Code(s): R18.0 - Malignant ascites Plan: Dr. Goode has been consulted and will do a paracentesis. (3) Atrial fibrillation: Status: Acute Qualifiers: Atrial fibrillation type: unspecified Qualified Code(s): I48.91 - Unspecified atrial fibrillation Plan: Continue Cardizem (4) Symptomatic anemia: Status: Acute Plan: Transfuse 1 unit of PRBC's today. Repeat H/H 1 hour after transfusion. If Hb is < 8.5 will transfuse a second unit of PRBC's. Premedicate with Tylenol and Benadryl. (5) Colon cancer: Status: Acute Qualifiers: Colon location: unspecified part of colon Qualified Code(s): C18.9 - Malignant neoplasm of colon, unspecified (6) Hypertension: Status: Chronic (7) Diabetes: Status: Chronic (8) Ascites, malignant: Status: Chronic (9) Hyponatremia: Status: Acute Narrative Support Text: Improved since admission. Plan: NS IVF hydration.
[2021-08-22] MEDS ORDERED: ZOCOR TAB 20 MG PO SCH (21:00)
[2021-08-22] MEDS ORDERED: LOPID PO SCH (21:00)
[2021-08-23 00:55] LABS: HEMATOCRIT 25.4 % (36.0-47.0); HEMOGLOBIN 9.1 g/dL (12.0-16.0)
[2021-08-23] MEDS ORDERED: GLUCOPHAGE ONE (04:03)
[2021-08-23 04:51] LABS: BASOPHILS % (AUTO) 0.4 % (0.2-1.0); EOSINOPHILS % (AUTO) 0.2 % (0.9-2.9); HEMATOCRIT 26.4 % (36.0-47.0); HEMOGLOBIN 9.4 g/dL (12.0-16.0); LYMPHOCYTES # (AUTO) 0.9 X10^3/uL (1.3-2.9); LYMPHOCYTES % (AUTO) 13.6 % (21.0-51.0); MEAN CORPUSCULAR HEMOGLOBIN 32.3 pg (27.0-34.0); MEAN CORPUSCULAR HGB CONC 35.6 g/dL (33.0-35.0); MEAN CORPUSCULAR VOLUME 90.7 fL (80.0-100.0); MEAN PLATELET VOLUME 8.3 fL (7.4-11.0); MONOCYTES # (AUTO) 0.4 x10^3/uL (0.3-0.8); MONOCYTES % (AUTO) 6.2 % (0.0-13.0); NEUTROPHILS # (AUTO) 5.4 x10^3/uL (2.2-4.8); NEUTROPHILS % (AUTO) 79.6 % (42.0-75.0); PLATELET COUNT 281 X10^3/uL (150.0-450.0); RED BLOOD COUNT 2.92 X10^6/uL (3.5-5.4); RED CELL DISTRIBUTION WIDTH 20.6 % (11.6-16.5); WHITE BLOOD COUNT 6.8 X10^3/uL (3.6-10.0)
[2021-08-23 05:13] LABS: ALANINE AMINOTRANSFERASE 31 Units/L (12-78); ALKALINE PHOSPHATASE 103 Units/L (46-116); ASPARTATE AMINO TRANSFERASE 38 Units/L (15-37); BLOOD UREA NITROGEN 13 mg/dL (7-18); CALCIUM 8.4 mg/dL (8.5-10.1); CARBON DIOXIDE 25.6 mmol/L (21-32); CHLORIDE 101 mmol/L (98-107); CREATININE 0.73 mg/dL (0.55-1.02); SODIUM 133 mmol/L (136-145); TOTAL PROTEIN 5.7 g/dL (6.4-8.2); eGFR NON BLACK RACES > 60 (>60)
[2021-08-23 05:14] LABS: ANISOCYTOSIS 1+; BURR CELLS SLIGHT; HYPOCHROMASIA 1+; OVALOCYTES SLIGHT; PLATELET MORPHOLOGY COMMENT NORMAL (NORMAL); SCHISTOCYTES SLIGHT
[2021-08-23] MEDS: GLUCOPHAGE PO SCH (06:08)
--- NOTE | 2021-08-23 06:12 | RAD ---
HISTORYABD PAIN HX: HTN<AFIB<DM< COLON CANCER< OVARIAN CANCER< STOMACH CANCER< SKIN CANCER.br [id number]/14/2021 [email or web address] gas-filled loops of bowel with distention improved from prior study. There is a moderate amount of fecal material throughout the colon. No pathological soft tissue mass or calcification can be observed. The bony structures are grossly intact.IMPRESSIONMild interval improvement in bowel distention from previous 08/22/2021 isElectronically signed by: Clinton Mackay (Aug 23, 2021 06:10:36)
[2021-08-23] MEDS: TYLENOL 325 MG TAB PO PRN (08:40)
[2021-08-23] MEDS: PATIENT'S HOME MEDICATION PO SCH (08:43)
[2021-08-23] MEDS: MEGACE PO SCH (08:43)
[2021-08-23] MEDS: CARDIZEM CD 240 MG 24-HR PO SCH (08:43)
[2021-08-23] MEDS: LANOXIN or DIGITEK PO SCH (08:43)
[2021-08-23] MEDS: LASIX PO SCH (08:43)
[2021-08-23] MEDS: K-DUR TAB 20 MEQ PO SCH (08:43)
[2021-08-23] MEDS: ELIQUIS PO SCH (08:43)
[2021-08-23 12:22] VITALS: BP 133/59
[2021-08-23 14:22] LABS: HEMOGLOBIN 9.9 g/dL (12.0-16.0)
--- NOTE | 2021-08-23 15:40 | DR.PROGNOT ---
Hospital Progress Notes - Progress Note for Day of: Progress Note Date: 08/23/21 - Chief Complaint Chief Complaint: drained about 5000 cc of bloody fluid today and yesterday .. feeling better with less pressure .. still having mild SOB , poor appetite . had two units of PC .. stable Hgb and cmp .. - Past Medical Family Social History Past Med/Fam/Surg Hx: No changes since H&P Allergies: Allergies No Known Drug Allergies Allergy (Verified 01/12/21 09:39) - Review Of Systems ROS: No change since H&P - Vital Signs Vital Signs: Temperature 98.3 F Pulse Rate [Apical] 93 Pulse Rate 109 Respiratory Rate 22 Blood Pressure [Right Arm] 133/59 Blood Pressure 172/84 O2 Sat by Pulse Oximetry 95 - Physical Exam Oriented: Normal Eyes: Normal Ear: Normal Nose: Normal Throat: Normal Respiratory: Normal Cardiovascular: Normal : Normal GI:Auscultation: Decreased GI:Palpation: Other (moderate abdominal distention .non tender .) GI: Tenderness: Diffuse Skin: Normal Musculoskeletal: Normal Psychiatric: Normal Mood Description: Calm Affect: Normal Speech Pattern: Clear, Appropriate - Laboratory and Diagnostics Result Diagrams: 08/23/21 13:57 08/23/21 04:05 Labs: Laboratory WBC 6.8 X10^3/uL (3.6-10.0) 08/23/21 04:05 RBC 2.92 X10^6/uL (3.5-5.4) L 08/23/21 04:05 Hgb 9.9 g/dL (12.0-16.0) L 08/23/21 13:57 Hct 28.0 % (36.0-47.0) L 08/23/21 13:57 MCV 90.7 fL (80.0-100.0) 08/23/21 04:05 MCH 32.3 pg (27.0-34.0) 08/23/21 04:05 MCHC 35.6 g/dL (33.0-35.0) H 08/23/21 04:05 RDW 20.6 % (11.6-16.5) H 08/23/21 04:05 Plt Count 281 X10^3/uL (150.0-450.0) 08/23/21 04:05 Plt Count Comment Adequate (ADEQUATE) 08/23/21 04:05 MPV 8.3 fL (7.4-11.0) 08/23/21 04:05 Neut % (Auto) 79.6 % (42.0-75.0) H 08/23/21 04:05 Lymph % (Auto) 13.6 % (21.0-51.0) L 08/23/21 04:05 [place] % (Auto) 6.2 % (0.0-13.0) 08/23/21 04:05 Eos % (Auto) 0.2 % (0.9-2.9) L 08/23/21 04:05 Baso % (Auto) 0.4 % (0.2-1.0) 08/23/21 04:05 Neut # (Auto) 5.4 x10^3/uL (2.2-4.8) H 08/23/21 04:05 Lymph # (Auto) 0.9 X10^3/uL (1.3-2.9) L 08/23/21 04:05 [place] # (Auto) 0.4 x10^3/uL (0.3-0.8) 08/23/21 04:05 Eos # (Auto) 0.0 x10^3/uL (0.0-0.2) 08/23/21 04:05 Baso # (Auto) 0.0 X10^3/uL (0.0-0.1) 08/23/21 04:05 Absolute Nucleated RBC 0.1 /100WBC 08/23/21 04:05 Plt Morphology Comment Normal (NORMAL) 08/23/21 04:05 RBC Morphology Abnormal (NORMAL) A 08/23/21 04:05 Dimorphic RBCs Slight 08/21/21 18:25 Hypochromasia 1+ A 08/23/21 04:05 Poikilocytosis 2+ A 08/21/21 18:25 Anisocytosis 1+ A 08/23/21 04:05 Ovalocytes Slight A 08/23/21 04:05 Heladio Cells Slight A 08/23/21 04:05 Acanthocytes (Spur) 1+ 08/23/21 04:05 Schistocytes Slight A 08/23/21 04:05 Sodium 133 mmol/L (136-145) L 08/23/21 04:05 Corrected Sodium TNP 08/23/21 04:05 Potassium 4.0 mmol/L (3.5-5.1) 08/23/21 04:05 Chloride 101 mmol/L (98-107) 08/23/21 04:05 Carbon Dioxide 25.6 mmol/L (21-32) 08/23/21 04:05 BUN 13 mg/dL (7-18) 08/23/21 04:05 Creatinine 0.73 mg/dL (0.55-1.02) 08/23/21 04:05 Est GFR (MDRD) Af Amer > 60 (>60) 08/23/21 04:05 Est GFR (MDRD) Non-Af > 60 (>60) 08/23/21 04:05 Glucose 77 mg/dL (65-99) 08/23/21 04:05 POC Glucose (mg/dL) 97 mg/dL (65-99) 08/23/21 11:25 Calcium 8.4 mg/dL (8.5-10.1) L 08/23/21 04:05 Corrected Calcium 10.0 mg/dL (8.5-10.1) 08/23/21 04:05 Total Bilirubin 0.90 mg/dL (0.2-1.0) 08/23/21 04:05 AST 38 Units/L (15-37) H 08/23/21 04:05 ALT 31 Units/L (12-78) 08/23/21 04:05 Alkaline Phosphatase 103 Units/L (46-116) 08/23/21 04:05 Total Protein 5.7 g/dL (6.4-8.2) L 08/23/21 04:05 Albumin 2.0 g/dL (3.4-5.0) L 08/23/21 04:05 Globulin 3.7 g/dL (2.5-4.5) 08/23/21 04:05 Albumin/Globulin Ratio 0.5 Ratio (1.1-2.1) L 08/23/21 04:05 Specimen Type Catherized urine 08/22/21 11:50 Urine Color Yellow (YELLOW) 08/22/21 11:50 Urine Appearance Clear (CLEAR) 08/22/21 11:50 Urine pH 5.0 (5.0 - 8.0) 08/22/21 11:50 Ur Specific [place] 1.025 (1.000-1.030) 08/22/21 11:50 Urine Protein 2+ (NEGATIVE) 08/22/21 11:50 Urine Glucose (UA) Negative (NEGATIVE) 08/22/21 11:50 Urine Ketones Negative (NEGATIVE) 08/22/21 11:50 Urine Occult Blood 1+ (NEGATIVE) 08/22/21 11:50 Urine Nitrite Negative (NEGATIVE) 08/22/21 11:50 Urine Bilirubin Negative (NEGATIVE) 08/22/21 11:50 Urine Urobilinogen Normal (NORMAL) 08/22/21 11:50 Ur Leukocyte Esterase Negative (NEGATIVE) 08/22/21 11:50 Urine RBC 0-2 /HPF (0-3) 08/22/21 11:50 Urine WBC 3-5 /HPF (0-5) 08/22/21 11:50 Ur Squamous Epith Cells Many /HPF (NEGATIVE) 08/22/21 11:50 Urine Bacteria 1+ /HPF (NEGATIVE) 08/22/21 11:50 Hyaline Casts Many /LPF (NEGATIVE) 08/22/21 11:50 Granular Casts Few /LPF (NEGATIVE) 08/22/21 11:50 Ur Culture Indicated? No/not indicated 08/22/21 11:50 Digoxin 0.95 ng/mL (0.9-2) 08/22/21 04:20 SARS-CoV-2 (PCR) Negative (NEGATIVE) 08/21/21 19:08 Influenza Type A (PCR) Negative (NEGATIVE) 08/21/21 19:08 Influenza Type B (PCR) Negative (NEGATIVE) 08/21/21 19:08 RSV (PCR) Negative (NEGATIVE) 08/21/21 19:08 Blood Type O POSITIVE 08/22/21 11:30 Antibody Screen Negative 08/22/21 11:30 Crossmatch See Detail 08/22/21 11:30 - Assessment and Plan 1: malignant ascites . ovarian cancer . catheter was removed . to follow PRN .. - Problem Patient Problems: Patient Problems Abdominal distention (Acute) R14.0 Atrial fibrillation (Acute) I48.91 Ascites, malignant (Chronic) R18.0
== END 2021-08-23 15:25 | disposition home health service (06) | DRG 844 ==
LOC: ER 17:22 → MED/SURG 22:31
PROVIDERS: ADMIT Family Medicine; ATTEND Internal Medicine
DX: K21.9 Gastro-esophageal reflux disease without esophagitis; I48.91 Unspecified atrial fibrillation; C79.89 Secondary malignant neoplasm of other specified sites; Z20.822 Contact with and (suspected) exposure to COVID-19; K59.00 Constipation, unspecified; M19.90 Unspecified osteoarthritis, unspecified site; R18.0 Malignant ascites; I25.10 Atherosclerotic heart disease of native coronary artery without angina pectoris; E78.5 Hyperlipidemia, unspecified; E11.8 Type 2 diabetes mellitus with unspecified complications; D64.89 Other specified anemias; I10 Essential (primary) hypertension; C56.9 Malignant neoplasm of unspecified ovary; R10.9 Unspecified abdominal pain; E87.1 Hypo-osmolality and hyponatremia

== ENCOUNTER 2021-09-24 09:28 | Inpatient (IN) ==
--- NOTE | 2021-09-24 10:12 | DR.GENAD ---
HPI Time Seen Time Seen by Provider: 09/24/21 10:00 PCP Primary Care Physician: Complaint/Symptoms Chief Complaint Doctors Comments: According to Daughter, patient has been having some left flank pain and shortness of breath for 3 days, She states that when she has gotten like this in the past the surgeon normally has to draw some fluid off her chest to to build up from ovarian cancer with mets to abdomen and lungs. Chief Complaint:: PT'S DAUGHTER STATES PT HAS BEEN HAVING ABDOMEN DISTENTION X1 MONTH. PT ALSO C/O LEFT RIB PAIN & SOB X3 DAYS AGO. PT'S DAUGHTER ALSO [facility] HEALTH NURSE SENT PT HERE TO BE SEEN IN ER AND TOLD THEM THAT DR. LUIS WILL BE TO SEE PT & POSSIBLY DRAW FLUID OFF. COVID-19 Coronavirus risk:travel/contact w/high risk person: No Has patient experienced Coronavirus symptoms: No Source History Provided: Patient Mode of Arrival Mode of Arrival: Wheelchair Timing Onset of Chief Complaint: 08/09/21 PMH PMH Past Medical History: Yes Past Medical History: Arthritis, Coronary Artery Disease, Diabetes, Dyslipidemia, GERD and Hypertension Past Surgical History: Yes Surgical History: Bowel Resection Family History History of Family Medical Conditions: Yes Family Medical History: Diabetes Mellitus and Hypertension Social History Do you use any recreational Drugs:: No Travel Risk Coronavirus risk:travel/contact w/high risk person: No Has patient experienced Coronavirus symptoms: No Infectious screening Have you traveled outside the country in the last 6 months?: No Isolation: Standard ROS Review of Systems Constitutional: No Symptoms Reported Eyes: No Symptoms Reported ENTM: No Symptoms Reported Respiratoy: Productive Cough and Short of Breath Cardiovascular: No Symptoms Reported Gastrointestinal/Abdominal: No Symptoms Reported Genitourinary: No Symptoms Reported Neurological: No Symptoms Reported Musculoskeletal: No Symptoms Reported and Other (EDEMA IN ANKLES) Integumentary: No Symptoms Reported Hematologic/Lymphatic: No Symptoms Reported Endocrine: No Symptoms Reported Psychiatric: No Symptoms Reported and Anxiety (REQUIRES ANXIOLYTICS AT LEAST BID) All Other Systems: Reviewed and Negative PE Vital Signs Vitals: Temperature 98.8 F Pulse Rate 134 Respiratory Rate 32 Blood Pressure [Right Arm] 133/59 Blood Pressure 94/52 O2 Sat by Pulse Oximetry 100 General General Appearance: Alert, Lethargic and Other (MILD DISTRESS) Head Head Exam: Normal Inspection Eyes Eye exam: Normal Appearance ENT ENT Exam: Normal Exam External Ear Exam: Normal External Inspection TM/Canal Exam: Bilateral: Normal Nose Exam: Normal Nose Exam Mouth Exam: Normal Inspection Throat Exam: Normal Inspection Neck Neck Exam: Normal Inspection Chest Chest Inspection: Normal Inspection Respiratory Respiratory Exam: Bilateral: Clear to Auscultation and Bilateral: Rales Cardiovascular Cardiovascular Exam: Regular Rate, Normal Rhythm, Tachycardia and Irregular Rhythm Abdominal Exam Abdominal Exam: Normal Inspection, Normal Bowel Sounds and Soft Extremities Extremities Exam: Normal Inspection (EDEMA IN BILATERAL LOWER LEGS THAT IS PITTING) and Edema Back Back Exam: Normal Inspection Neurologic Neurological Exam: Alert and Oriented X3 Psychiatric Psychiatric Exam: Anxious and Flat Affect Skin Skin Exam: Warm, Dry, Intact and Normal Color MDM Differential Diagnosis Differential Diagnosis: AFIB WITH RVR,PULMONARY EDEMA,ANXIETY COURSE Treatment Treatment: PATIENT WAS STARTED ON PROTOCOL FOR AFIB WITH RVR . WAS STARTED ON NA CL AT 100CC/HR FOR FLUCTUATING BP. WILL ADMIT TO HOSPITAL FOR AFIB WITH RVR.CALLED DR HUFFMAN WHO IS BROADCAST TECHNICIAN AND STATED TO WEAN PATIENT OFF CARDIZEN DRIP AND GIVE PATIENT TOPROL XL 50MG AND ADMIT THE PATIENT TO HOSPITAL. PATIENT AND FFAMILY IS AWARE OF INTENT AND DR LUIS (THE SURGEON) WENT IN TO SEE PATIENT SINCE HE HAS TO OCCASIONALLY DO PARACENTESIS ON PATIENT TO REMOVE ASCITIC FLUID,HE WILL FURTHER EVALUATED PATIENT INHOSPITAL WHEN BP STABILIZES) Reevaluation 1st: Improved (AFIB IMPROVED AFTER PROTOCOL INITIATED. RATE WAS BETWEEN 90 AND 140) ROR Labs Reviewed Laboratory Results Reviewed?: Yes Result Diagrams: 09/24/21 10:21 09/24/21 10:21 Laboratory: WBC 14.9 X10^3/uL (3.6-10.0) H 09/24/21 10:21 RBC 2.31 X10^6/uL (3.5-5.4) L 09/24/21 10:21 Hgb 7.5 g/dL (12.0-16.0) L 09/24/21 10:21 Hct 22.5 % (36.0-47.0) L 09/24/21 10:21 MCV 97.5 fL (80.0-100.0) 09/24/21 10:21 MCH 32.3 pg (27.0-34.0) 09/24/21 10:21 MCHC 33.1 g/dL (33.0-35.0) 09/24/21 10:21 RDW 22.1 % (11.6-16.5) H 09/24/21 10:21 Plt Count 711 X10^3/uL (150.0-450.0) H 09/24/21 10:21 Plt Count Comment Increased (ADEQUATE) A 09/24/21 10:21 MPV 8.2 fL (7.4-11.0) 09/24/21 10:21 Neut % (Auto) 85.0 % (42.0-75.0) H 09/24/21 10:21 Lymph % (Auto) 7.7 % (21.0-51.0) L 09/24/21 10:21 [place] % (Auto) 6.6 % (0.0-13.0) 09/24/21 10:21 Eos % (Auto) 0.0 % (0.9-2.9) L 09/24/21 10:21 Baso % (Auto) 0.7 % (0.2-1.0) 09/24/21 10:21 Neut # (Auto) 12.7 x10^3/uL (2.2-4.8) H 09/24/21 10:21 Lymph # (Auto) 1.2 X10^3/uL (1.3-2.9) L 09/24/21 10:21 [place] # (Auto) 1.0 x10^3/uL (0.3-0.8) H 09/24/21 10:21 Eos # (Auto) 0.0 x10^3/uL (0.0-0.2) 09/24/21 10:21 Baso # (Auto) 0.1 X10^3/uL (0.0-0.1) 09/24/21 10:21 Absolute Nucleated RBC 0.5 /100WBC 09/24/21 10:21 Giant Platelets Rare 09/24/21 10:21 Plt Morphology Comment Abnormal (NORMAL) A 09/24/21 10:21 RBC Morphology Abnormal (NORMAL) A 09/24/21 10:21 Dimorphic RBCs Present 09/24/21 10:21 Hypochromasia Slight A 09/24/21 10:21 Poikilocytosis 1+ A 09/24/21 10:21 Anisocytosis 2+ A 09/24/21 10:21 Tear Drop Cells Slight A 09/24/21 10:21 Ovalocytes Slight A 09/24/21 10:21 Acanthocytes (Spur) Slight 09/24/21 10:21 Sodium 138 mmol/L (136-145) 09/24/21 10:21 Corrected Sodium TNP 09/24/21 10:21 Potassium 4.5 mmol/L (3.5-5.1) 09/24/21 10:21 Chloride 101 mmol/L (98-107) 09/24/21 10:21 Carbon Dioxide 22.5 mmol/L (21-32) 09/24/21 10:21 BUN 22 mg/dL (7-18) H 09/24/21 10:21 Creatinine 1.21 mg/dL (0.55-1.02) H 09/24/21 10:21 Est GFR (MDRD) Af Amer 55 (>60) L 09/24/21 10:21 Est GFR (MDRD) Non-Af 45 (>60) L 09/24/21 10:21 Glucose 97 mg/dL (65-99) 09/24/21 10:21 Calcium 8.6 mg/dL (8.5-10.1) 09/24/21 10:21 Corrected Calcium 10.0 mg/dL (8.5-10.1) 09/24/21 10:21 Total Bilirubin 0.50 mg/dL (0.2-1.0) 09/24/21 10:21 AST 37 Units/L (15-37) 09/24/21 10:21 ALT 20 Units/L (12-78) 09/24/21 10:21 Alkaline Phosphatase 115 Units/L (46-116) 09/24/21 10:21 Creatine Kinase 27 Units/L (26-192) 09/24/21 10:21 CK-MB (CK-2) < 1.0 ng/mL (0-4.0) 09/24/21 10:21 CK/CKMB % Calc 3.7 % (<4) 09/24/21 10:21 Troponin I < 0.02 ng/mL (0-1.5) 09/24/21 10:21 B-Natriuretic Peptide 359 pg/mL (0-79) H 09/24/21 10:21 Total Protein 6.4 g/dL (6.4-8.2) 09/24/21 10:21 Albumin 2.2 g/dL (3.4-5.0) L 09/24/21 10:21 Globulin 4.2 g/dL (2.5-4.5) 09/24/21 10:21 Albumin/Globulin Ratio 0.5 Ratio (1.1-2.1) L 09/24/21 10:21 SARS-CoV-2 (PCR) Negative (NEGATIVE) 09/24/21 12:14 Other Results Comments: LABS WERE REVIEWED AND PATIENT HAS CHRONIC ANEMIA DUE TO OVARIAN CANCER AND HISTORY OF COLON CANCER. XRAY XRAY Interpreted by: Radiologist (CHEST XRAY SHOWED NO DEFINITE CHEST ABNORMALITY) Opioid Opioid Risk Tool Age (Levi box if 16-45): No History of Preadolescent Sexual Abuse: No Total: 0 Total Score Risk Category: Low Risk Copyright: Samson HA predicting aberrant behaviors
[2021-09-24] MEDS ORDERED: CARDIZEM INJ 50 MG VIAL IVP ONE ×2 (10:18→10:42)
[2021-09-24] MEDS ORDERED: CARDIZEM INJ 50 MG VIAL ONE (10:30)
[2021-09-24] MEDS ORDERED: NS 100 ML IV + SPIKE MINIBAG* 100 ML IV ONE (10:30)
[2021-09-24] MEDS ORDERED: CARDIZEM INJ 125 MG VIAL ONE (10:31)
[2021-09-24] MEDS ORDERED: NS 100 ML IV 100 ML ONE (10:33)
[2021-09-24 10:43] LABS: BASOPHILS # (AUTO) 0.1 X10^3/uL (0.0-0.1); BASOPHILS % (AUTO) 0.7 % (0.2-1.0); HEMATOCRIT 22.5 % (36.0-47.0); HEMOGLOBIN 7.5 g/dL (12.0-16.0); LYMPHOCYTES # (AUTO) 1.2 X10^3/uL (1.3-2.9); LYMPHOCYTES % (AUTO) 7.7 % (21.0-51.0); MEAN CORPUSCULAR HEMOGLOBIN 32.3 pg (27.0-34.0); MEAN CORPUSCULAR HGB CONC 33.1 g/dL (33.0-35.0); MEAN CORPUSCULAR VOLUME 97.5 fL (80.0-100.0); MEAN PLATELET VOLUME 8.2 fL (7.4-11.0); MONOCYTES % (AUTO) 6.6 % (0.0-13.0); NEUTROPHILS # (AUTO) 12.7 x10^3/uL (2.2-4.8); PLATELET COUNT 711 X10^3/uL (150.0-450.0); RED BLOOD COUNT 2.31 X10^6/uL (3.5-5.4); RED CELL DISTRIBUTION WIDTH 22.1 % (11.6-16.5); WHITE BLOOD COUNT 14.9 X10^3/uL (3.6-10.0)
[2021-09-24] MEDS: CARDIZEM INJ 125 MG VIAL 125 MG in NS 100 ML IV 100 ML IV PRN ×2 (10:46→20:45)
[2021-09-24 10:55] LABS: ALANINE AMINOTRANSFERASE 20 Units/L (12-78); ALBUMIN 2.2 g/dL (3.4-5.0); ALKALINE PHOSPHATASE 115 Units/L (46-116); ASPARTATE AMINO TRANSFERASE 37 Units/L (15-37); BLOOD UREA NITROGEN 22 mg/dL (7-18); CALCIUM 8.6 mg/dL (8.5-10.1); CARBON DIOXIDE 22.5 mmol/L (21-32); CHLORIDE 101 mmol/L (98-107); CREATININE 1.21 mg/dL (0.55-1.02); SODIUM 138 mmol/L (136-145); TOTAL PROTEIN 6.4 g/dL (6.4-8.2); eGFR NON BLACK RACES 45 (>60)
[2021-09-24 10:59] LABS: GIANT PLATELET RARE; PLATELET MORPHOLOGY COMMENT ABNORMAL (NORMAL)
--- NOTE | 2021-09-24 10:59 | RAD ---
HISTORYSOBSTUDYAP [id number] heart size. There is slight nonspecific interstitial prominence in the lower lungs without evidence for segmental or lobar consolidation. No pleural fluid or hilar enlargement or pneumothorax noted.IMPRESSIONNo definite acute chest abnormality identified.Electronically signed by: BARRETT ALDRIDGE (Sep 24, 2021 10:57:52)
[2021-09-24 11:00] LABS: ANISOCYTOSIS 2+
[2021-09-24 11:01] LABS: TEAR DROP CELLS SLIGHT
[2021-09-24 11:02] LABS: OVALOCYTES SLIGHT
[2021-09-24 11:03] LABS: HYPOCHROMASIA SLIGHT
[2021-09-24 11:04] LABS: POIKILOCYTOSIS 1+
[2021-09-24 11:13] LABS: CKMB % 3.7 % (<4); CREATINE KINASE 27 Units/L (26-192); CREATINE KINASE MB < 1.0 ng/mL (0-4.0); TROPONIN I < 0.02 ng/mL (0-1.5)
[2021-09-24] MEDS ORDERED: NS 1,000 ML IV 1,000 ML ONE (12:29)
[2021-09-24] MEDS: NS 1,000 ML IV 1,000 ML IV SCH ×2 (13:06→22:00)
[2021-09-24] MEDS ORDERED: [UNRECOGNIZED DRUG - OTHER] PO SCH (15:45)
[2021-09-24] MEDS ORDERED: COMPAZINE PO PRN (15:45)
[2021-09-24 16:18] LABS: APPEARANCE,URINE HAZY (CLEAR); BILIRUBIN,URINE 1+ (NEGATIVE); BLOOD/HEMOGLOBIN,URINE 1+ (NEGATIVE); COLOR,URINE DARK YELLOW (YELLOW); GLUCOSE, URINE NEGATIVE (NEGATIVE); KETONES,URINE NEGATIVE (NEGATIVE); LEUKOCYTE ESTERASE ,URINE 1+ (NEGATIVE); NITRITES,URINE NEGATIVE (NEGATIVE); PROTEIN,URINE 2+ (NEGATIVE); UROBILINOGEN,URINE NORMAL (NORMAL)
[2021-09-24 16:48] LABS: BACTERIA,URINE 1+ /HPF (NEGATIVE); SQUAMOUS EPITHELIAL CELL,UR MODERATE /HPF (NEGATIVE)
[2021-09-24 16:49] LABS: AMORPHOUS SEDIMENT,UR 1+ /HPF (NEGATIVE); COARSE GRANULAR CASTS,URINE MANY /HPF (NEGATIVE); HYALINE CASTS, URINE FEW /LPF (NEGATIVE); OTHER CASTS, URINE FEW /LPF (NEGATIVE)
[2021-09-24 17:19] LABS: CKMB % 3.3 % (<4); CREATINE KINASE 30 Units/L (26-192); CREATINE KINASE MB < 1.0 ng/mL (0-4.0); TROPONIN I < 0.02 ng/mL (0-1.5)
[2021-09-24] MEDS: PATIENT'S HOME MEDICATION PO SCH (20:38)
[2021-09-24] MEDS: ULTRAM PO PRN (20:45)
[2021-09-24] MEDS: MEGACE PO SCH (20:46)
[2021-09-24] MEDS: MICRO K EXTEN CAP 10 MEQ PO SCH (20:46)
[2021-09-24] MEDS: ZOCOR TAB 20 MG PO SCH (20:46)
[2021-09-24] MEDS: PROTONIX TAB 40 MG PO SCH (20:46)
[2021-09-24] MEDS: LOPID PO SCH (20:46)
[2021-09-24] MEDS: GLUCOPHAGE PO SCH (20:47)
[2021-09-24 23:37] LABS: CKMB % 3.3 % (<4); CREATINE KINASE 30 Units/L (26-192); TROPONIN I < 0.02 ng/mL (0-1.5)
[2021-09-25] MEDS: ULTRAM PO PRN (02:30)
[2021-09-25] MEDS: NS 1,000 ML IV 1,000 ML IV SCH ×4 (05:47→20:36)
[2021-09-25 05:51] LABS: BASOPHILS % (AUTO) 0.2 % (0.2-1.0); LYMPHOCYTES # (AUTO) 1.1 X10^3/uL (1.3-2.9); LYMPHOCYTES % (AUTO) 8.9 % (21.0-51.0); MEAN CORPUSCULAR HEMOGLOBIN 32.3 pg (27.0-34.0); MEAN CORPUSCULAR HGB CONC 33.6 g/dL (33.0-35.0); MEAN CORPUSCULAR VOLUME 96.1 fL (80.0-100.0); MEAN PLATELET VOLUME 8.4 fL (7.4-11.0); MONOCYTES # (AUTO) 0.9 x10^3/uL (0.3-0.8); NEUTROPHILS # (AUTO) 10.5 x10^3/uL (2.2-4.8); NEUTROPHILS % (AUTO) 83.9 % (42.0-75.0); PLATELET COUNT 528 X10^3/uL (150.0-450.0); RED BLOOD COUNT 1.75 X10^6/uL (3.5-5.4); RED CELL DISTRIBUTION WIDTH 22.2 % (11.6-16.5); WHITE BLOOD COUNT 12.5 X10^3/uL (3.6-10.0)
[2021-09-25 05:58] LABS: ALANINE AMINOTRANSFERASE 15 Units/L (12-78); ALBUMIN 1.7 g/dL (3.4-5.0); ALKALINE PHOSPHATASE 92 Units/L (46-116); ASPARTATE AMINO TRANSFERASE 31 Units/L (15-37); BLOOD UREA NITROGEN 20 mg/dL (7-18); CALCIUM 7.9 mg/dL (8.5-10.1); CARBON DIOXIDE 21.9 mmol/L (21-32); CHLORIDE 104 mmol/L (98-107); COR CA(FOR HYPOALB) 9.7 mg/dL (8.5-10.1); CREATININE 0.96 mg/dL (0.55-1.02); SODIUM 136 mmol/L (136-145); TOTAL PROTEIN 5.6 g/dL (6.4-8.2); eGFR NON BLACK RACES 59 (>60)
[2021-09-25 06:25] LABS: HEMATOCRIT 16.8 % (36.0-47.0); HEMOGLOBIN 5.6 g/dL (12.0-16.0)
[2021-09-25 06:27] LABS: ANISOCYTOSIS 2+; HYPOCHROMASIA 1+; OVALOCYTES PRESENT; PLATELET MORPHOLOGY COMMENT NORMAL (NORMAL); TEAR DROP CELLS PRESENT
[2021-09-25] MEDS ORDERED: GLUCOPHAGE ONE ×2 (08:29→20:11)
[2021-09-25] MEDS: GLUCOPHAGE PO SCH ×2 (08:40→20:34)
[2021-09-25] MEDS: PATIENT'S HOME MEDICATION PO SCH ×2 (08:41→20:36)
[2021-09-25] MEDS: MEGACE PO SCH (08:41)
[2021-09-25] MEDS: TAB-A-VITE PO SCH (08:41)
[2021-09-25] MEDS: MICRO K EXTEN CAP 10 MEQ PO SCH ×2 (08:41→20:35)
[2021-09-25] MEDS: PROTONIX TAB 40 MG PO SCH ×2 (08:41→20:36)
[2021-09-25 08:54] VITALS: BMI 19.7
[2021-09-25] MEDS: TOPROL XL PO SCH (09:43)
[2021-09-25] MEDS ORDERED: NS 500 ML IV 0 ML IV ONE (09:52)
[2021-09-25] MEDS ORDERED: NS 500 ML IV 500 ML IV ONE (10:00)
[2021-09-25] MEDS ORDERED: NS 100 ML IV 100 ML ONE (10:01)
[2021-09-25] MEDS ORDERED: RESTORIL CAP 15 MG PO PRN (10:31)
[2021-09-25] MEDS ORDERED: LOVENOX INJ 30 MG SYR SC SCH (11:00)
[2021-09-25] MEDS: ELIQUIS PO SCH ×2 (12:16→20:35)
[2021-09-25] MEDS: COLACE CAP 100 MG PO SCH ×2 (12:17→20:35)
[2021-09-25] MEDS: K-DUR TAB 20 MEQ PO SCH (12:17)
[2021-09-25 19:04] LABS: HEMATOCRIT 24.8 % (36.0-47.0)
[2021-09-25 19:05] LABS: HEMOGLOBIN 8.3 g/dL (12.0-16.0)
[2021-09-25] MEDS: LOPID PO SCH (20:35)
[2021-09-25] MEDS: ZOCOR TAB 20 MG PO SCH (20:36)
[2021-09-25] MEDS ORDERED: MIRALAX POWDER (1 DOSE 17 G) PO SCH (21:00)
[2021-09-26 05:39] LABS: BASOPHILS # (AUTO) 0.1 X10^3/uL (0.0-0.1); BASOPHILS % (AUTO) 0.4 % (0.2-1.0); EOSINOPHILS % (AUTO) 0.1 % (0.9-2.9); HEMATOCRIT 24.9 % (36.0-47.0); HEMOGLOBIN 8.7 g/dL (12.0-16.0); LYMPHOCYTES # (AUTO) 1.4 X10^3/uL (1.3-2.9); LYMPHOCYTES % (AUTO) 10.6 % (21.0-51.0); MEAN CORPUSCULAR HEMOGLOBIN 32.2 pg (27.0-34.0); MEAN CORPUSCULAR HGB CONC 34.9 g/dL (33.0-35.0); MEAN CORPUSCULAR VOLUME 92.3 fL (80.0-100.0); MEAN PLATELET VOLUME 8.3 fL (7.4-11.0); MONOCYTES # (AUTO) 0.8 x10^3/uL (0.3-0.8); MONOCYTES % (AUTO) 5.8 % (0.0-13.0); NEUTROPHILS # (AUTO) 10.9 x10^3/uL (2.2-4.8); NEUTROPHILS % (AUTO) 83.1 % (42.0-75.0); PLATELET COUNT 462 X10^3/uL (150.0-450.0); RED BLOOD COUNT 2.69 X10^6/uL (3.5-5.4); RED CELL DISTRIBUTION WIDTH 19.4 % (11.6-16.5); WHITE BLOOD COUNT 13.1 X10^3/uL (3.6-10.0)
[2021-09-26 05:47] LABS: ALANINE AMINOTRANSFERASE 17 Units/L (12-78); ALBUMIN 1.7 g/dL (3.4-5.0); ALKALINE PHOSPHATASE 94 Units/L (46-116); ASPARTATE AMINO TRANSFERASE 35 Units/L (15-37); BLOOD UREA NITROGEN 16 mg/dL (7-18); CALCIUM 7.8 mg/dL (8.5-10.1); CARBON DIOXIDE 24.3 mmol/L (21-32); CHLORIDE 105 mmol/L (98-107); COR CA(FOR HYPOALB) 9.6 mg/dL (8.5-10.1); CREATININE 0.81 mg/dL (0.55-1.02); MAGNESIUM 1.7 mg/dL (1.7-2.9); SODIUM 135 mmol/L (136-145); TOTAL PROTEIN 5.4 g/dL (6.4-8.2); eGFR NON BLACK RACES > 60 (>60)
[2021-09-26] MEDS ORDERED: GLUCOPHAGE ONE ×2 (08:35→20:03)
[2021-09-26] MEDS: MIRALAX POWDER (1 DOSE 17 G) PO SCH (09:35)
[2021-09-26] MEDS: TOPROL XL PO SCH (09:35)
[2021-09-26] MEDS: TAB-A-VITE PO SCH (09:35)
[2021-09-26] MEDS: K-DUR TAB 20 MEQ PO SCH (09:35)
[2021-09-26] MEDS: ELIQUIS PO SCH ×2 (09:35→20:51)
[2021-09-26] MEDS: GLUCOPHAGE PO SCH ×2 (09:35→20:52)
[2021-09-26] MEDS: COLACE CAP 100 MG PO SCH ×2 (09:35→20:51)
[2021-09-26] MEDS: PROTONIX TAB 40 MG PO SCH ×2 (09:36→20:52)
[2021-09-26] MEDS: MICRO K EXTEN CAP 10 MEQ PO SCH ×2 (09:36→20:52)
[2021-09-26] MEDS ORDERED: PROCRIT or EPOGEN VIAL 10,000 UNITS SC ONE (10:33)
[2021-09-26] MEDS: PATIENT'S HOME MEDICATION PO SCH ×2 (12:06→20:53)
[2021-09-26] MEDS: NS 1,000 ML IV 1,000 ML IV SCH ×3 (12:09→20:53)
[2021-09-26] MEDS ORDERED: TOPROL XL PO ONE (12:21)
[2021-09-26] MEDS: MAGNESIUM SULFATE 1 GRAM/100 mL PREMIX 1 G/100 ML BAG IV PRN ×3 (13:43→16:15)
[2021-09-26] MEDS: ZOCOR TAB 20 MG PO SCH (20:52)
[2021-09-26] MEDS: LOPID PO SCH (20:53)
[2021-09-26] MEDS: ULTRAM PO PRN (20:54)
[2021-09-27] MEDS: NS 1,000 ML IV 1,000 ML IV SCH ×3 (05:17→21:26)
[2021-09-27 05:26] LABS: BASOPHILS # (AUTO) 0.1 X10^3/uL (0.0-0.1); BASOPHILS % (AUTO) 0.4 % (0.2-1.0); EOSINOPHILS % (AUTO) 0.3 % (0.9-2.9); HEMATOCRIT 23.9 % (36.0-47.0); HEMOGLOBIN 8.1 g/dL (12.0-16.0); LYMPHOCYTES # (AUTO) 1.1 X10^3/uL (1.3-2.9); LYMPHOCYTES % (AUTO) 7.7 % (21.0-51.0); MEAN CORPUSCULAR HEMOGLOBIN 31.6 pg (27.0-34.0); MEAN CORPUSCULAR HGB CONC 33.8 g/dL (33.0-35.0); MEAN CORPUSCULAR VOLUME 93.4 fL (80.0-100.0); MEAN PLATELET VOLUME 8.3 fL (7.4-11.0); MONOCYTES # (AUTO) 0.8 x10^3/uL (0.3-0.8); MONOCYTES % (AUTO) 5.4 % (0.0-13.0); NEUTROPHILS # (AUTO) 12.1 x10^3/uL (2.2-4.8); NEUTROPHILS % (AUTO) 86.2 % (42.0-75.0); PLATELET COUNT 431 X10^3/uL (150.0-450.0); RED BLOOD COUNT 2.56 X10^6/uL (3.5-5.4); WHITE BLOOD COUNT 14.1 X10^3/uL (3.6-10.0)
[2021-09-27 05:38] LABS: ALANINE AMINOTRANSFERASE 15 Units/L (12-78); ALBUMIN 1.5 g/dL (3.4-5.0); ALKALINE PHOSPHATASE 88 Units/L (46-116); ASPARTATE AMINO TRANSFERASE 32 Units/L (15-37); BLOOD UREA NITROGEN 14 mg/dL (7-18); CALCIUM 7.8 mg/dL (8.5-10.1); CARBON DIOXIDE 21.2 mmol/L (21-32); CHLORIDE 110 mmol/L (98-107); COR CA(FOR HYPOALB) 9.8 mg/dL (8.5-10.1); CREATININE 0.72 mg/dL (0.55-1.02); MAGNESIUM 2.1 mg/dL (1.7-2.9); SODIUM 137 mmol/L (136-145); TOTAL PROTEIN 5.1 g/dL (6.4-8.2); eGFR NON BLACK RACES > 60 (>60)
[2021-09-27] MEDS ORDERED: GLUCOPHAGE ONE ×2 (08:22→21:21)
[2021-09-27] MEDS: COLACE CAP 100 MG PO SCH ×2 (09:14→21:25)
[2021-09-27] MEDS: ELIQUIS PO SCH ×2 (09:14→21:25)
[2021-09-27] MEDS: K-DUR TAB 20 MEQ PO SCH (09:14)
[2021-09-27] MEDS: MICRO K EXTEN CAP 10 MEQ PO SCH ×2 (09:14→21:26)
[2021-09-27] MEDS: MIRALAX POWDER (1 DOSE 17 G) PO SCH (09:15)
[2021-09-27] MEDS: PROTONIX TAB 40 MG PO SCH ×2 (09:18→21:26)
[2021-09-27] MEDS: TOPROL XL PO SCH (09:20)
[2021-09-27] MEDS: TAB-A-VITE PO SCH (09:21)
[2021-09-27] MEDS: PATIENT'S HOME MEDICATION PO SCH ×2 (09:21→21:26)
[2021-09-27] MEDS: GLUCOPHAGE PO SCH ×3 (09:35→21:57)
--- NOTE | 2021-09-27 09:51 | PCM.PROG ---
Progress Note - Progress Note for Day of Date of Exam: 09/27/21 - Subjective Subjective: WAS ADMITTED TO THE HOSPITAL ON 09/24 FOR TREATMENT OF A- FIB, ANEMIA, SHORTNESS OF BREATH, HYPOTENSION, AND MALIGNANT ASCITES. PATIENT HAD A PARACENTESIS LAST MONTH, BUT SINCE DISCHARGE, SHE HAS HAD PROGRESSIVE SWELLING OF THE ABDOMEN. PATIENT ALSO COMPLAINS OF LEFT SIDED ABDOMINAL PAIN. SHE WAS GIVEN TWO UNITS OF PACKED RED BLOOD CELLS ON 09/25. , GENERAL SURGEON, ALSO CONSULTED WITH PATIENT AND PLANS FOR PARACENTESIS AND DRAINAGE WHEN PATIENTS BLOOD PRESSURE AND HEMOGLOBIN ARE STABLE. TODAY, SHE IS ALERT AND ORIENTED, LYING IN BED ON MORNING ROUNDS. SHE CONTINUES WITH ABDOMINAL DISTENSION AND TENDERNESS. SHE ALSO CONTINUES WITH GENERALIZED WEAKNESS. ON EXAMINATION, HEART IS REGULAR IN RATE AND RHYTHM. BILATERAL LUNGS NOTED WITH DIMINISHED LUNG SOUNDS THROUGHOUT. ABDOMEN IS DISTENDED AND NOTED WITH LEFT SIDED TENDERNESS. HER VITALS THIS MORNING ARE: 99.0-75-18-100%-136/64. LABS WERE OBTAINED. ABNORMAL LAB VALUES INCLUDE THE FOLLOWING: WBC 14.1, RBC 2.56, HGB 8.1, HCT 23.9, CHLORIDE 110, GLUCOSE 64, CALCIUM 7.8, TOTAL PROTEIN 5.1, ALBUMIN 1.5. SHE IS CURRENTLY RECEIVING NS AT 100 ML/HR, METOPROLOL SUCCINATE 200MG PO DAILY, ELIQUIS, COLACE, LOPID, NORCO PRN, GLUCOPHAGE, MULTIVITAMINS, PROTONIX, MIRALAX, POTASSIUM, COMPAZINE, ZOCOR, AND RESTORIL. WE WILL CONTINUE WITH CURRENT PLAN OF CARE TODAY. OTHERWISE, WE PLAN TO FOLLOW UP WITH AM LABS AND CONTINUE TO MONITOR. TIME SPENT ON CLINICAL ASSESSMENT, REVIEWING LABS AND IMAGING, DECISION MAKING, AND DOCUMENTATION GREATER THAN 75 MINUTES. - Past Medical Family Social History Past Med/Fam/Surg Hx: No changes since H&P Allergies: Allergies SERA Inhibitors Adverse Reaction (Intermediate, Verified 09/25/21 10:32) angioedema - Review of Systems ROS: No change since H&P - Vital Signs and I&O's Vital Signs: Temperature 99.0 F Pulse Rate 81 Respiratory Rate 20 Blood Pressure [Right Arm] 133/59 Blood Pressure 142/63 O2 Sat by Pulse Oximetry 100 Intake and Output: Intake & Output 09/24/21 09/25/21 09/26/21 09/27/21 11:59 11:59 11:59 11:59 Intake Total 2180 / 2180 2702 / 2702 4648 / 4648 Output Total 725 / 725 950 / 950 1601 / 1601 Balance 1455 / 1455 1752 / 1752 3047 / 3047 - Physical Exam Oriented: Normal Eyes: Normal Ear: Normal Nose: Normal Throat: Normal Respiratory: Normal Cardiovascular: Normal : Normal Auscultation: Bowel Sounds: Normal Palpation: Normal Tenderness: Normal, LUQ, LLQ, Mild Skin: Normal Musculoskeletal: Normal Psychiatric: Normal Mood Description: Calm Affect: Normal Speech Pattern: Clear, Appropriate - Laboratory and Diagnostics Result Diagrams: 09/27/21 05:04 09/27/21 05:04 Labs: Laboratory WBC 14.1 X10^3/uL (3.6-10.0) H 09/27/21 05:04 RBC 2.56 X10^6/uL (3.5-5.4) L 09/27/21 05:04 Hgb 8.1 g/dL (12.0-16.0) L 09/27/21 05:04 Hct 23.9 % (36.0-47.0) L 09/27/21 05:04 MCV 93.4 fL (80.0-100.0) 09/27/21 05:04 MCH 31.6 pg (27.0-34.0) 09/27/21 05:04 MCHC 33.8 g/dL (33.0-35.0) 09/27/21 05:04 RDW 20.0 % (11.6-16.5) H 09/27/21 05:04 Plt Count 431 X10^3/uL (150.0-450.0) 09/27/21 05:04 Plt Count Comment Increased (ADEQUATE) A 09/25/21 05:14 MPV 8.3 fL (7.4-11.0) 09/27/21 05:04 Neut % (Auto) 86.2 % (42.0-75.0) H 09/27/21 05:04 Lymph % (Auto) 7.7 % (21.0-51.0) L 09/27/21 05:04 [place] % (Auto) 5.4 % (0.0-13.0) 09/27/21 05:04 Eos % (Auto) 0.3 % (0.9-2.9) L 09/27/21 05:04 Baso % (Auto) 0.4 % (0.2-1.0) 09/27/21 05:04 Neut # (Auto) 12.1 x10^3/uL (2.2-4.8) H 09/27/21 05:04 Lymph # (Auto) 1.1 X10^3/uL (1.3-2.9) L 09/27/21 05:04 [place] # (Auto) 0.8 x10^3/uL (0.3-0.8) 09/27/21 05:04 Eos # (Auto) 0.0 x10^3/uL (0.0-0.2) 09/27/21 05:04 Baso # (Auto) 0.1 X10^3/uL (0.0-0.1) 09/27/21 05:04 Absolute Nucleated RBC 0.1 /100WBC 09/27/21 05:04 Giant Platelets Rare 09/24/21 10:21 Plt Morphology Comment Normal (NORMAL) 09/25/21 05:14 RBC Morphology Abnormal (NORMAL) A 09/25/21 05:14 Dimorphic RBCs Present 09/24/21 10:21 Hypochromasia 1+ A 09/25/21 05:14 Poikilocytosis 1+ A 09/24/21 10:21 Anisocytosis 2+ A 09/25/21 05:14 Tear Drop Cells Present 09/25/21 05:14 Ovalocytes Present 09/25/21 05:14 Acanthocytes (Spur) Present 09/25/21 05:14 Sodium 137 mmol/L (136-145) 09/27/21 05:04 Corrected Sodium TNP 09/27/21 05:04 Potassium 4.6 mmol/L (3.5-5.1) 09/27/21 05:04 Chloride 110 mmol/L (98-107) H 09/27/21 05:04 Carbon Dioxide 21.2 mmol/L (21-32) 09/27/21 05:04 BUN 14 mg/dL (7-18) 09/27/21 05:04 Creatinine 0.72 mg/dL (0.55-1.02) 09/27/21 05:04 Est GFR (MDRD) Af Amer > 60 (>60) 09/27/21 05:04 Est GFR (MDRD) Non-Af > 60 (>60) 09/27/21 05:04 Glucose 64 mg/dL (65-99) L 09/27/21 05:04 POC Glucose (mg/dL) 65 mg/dL (65-99) 09/27/21 05:03 Calcium 7.8 mg/dL (8.5-10.1) L 09/27/21 05:04 Corrected Calcium 9.8 mg/dL (8.5-10.1) 09/27/21 05:04 Magnesium 2.1 mg/dL (1.7-2.9) 09/27/21 05:04 Iron 28 ug/dL (50-175) L 09/25/21 05:14 Transferrin 76 mg/dL (202-364) L 09/25/21 05:14 Ferritin 1217 ng/mL (8-252) H 09/25/21 05:14 Total Bilirubin 0.60 mg/dL (0.2-1.0) 09/27/21 05:04 AST 32 Units/L (15-37) 09/27/21 05:04 ALT 15 Units/L (12-78) 09/27/21 05:04 Alkaline Phosphatase 88 Units/L (46-116) 09/27/21 05:04 Creatine Kinase 30 Units/L (26-192) 09/24/21 22:51 CK-MB (CK-2) 1.0 ng/mL (0-4.0) 09/24/21 22:51 CK/CKMB % Calc 3.3 % (<4) 09/24/21 22:51 Troponin I < 0.02 ng/mL (0-1.5) 09/24/21 22:51 B-Natriuretic Peptide 359 pg/mL (0-79) H 09/24/21 10:21 Total Protein 5.1 g/dL (6.4-8.2) L 09/27/21 05:04 Albumin 1.5 g/dL (3.4-5.0) L 09/27/21 05:04 Globulin 3.6 g/dL (2.5-4.5) 09/27/21 05:04 Albumin/Globulin Ratio 0.4 Ratio (1.1-2.1) L 09/27/21 05:04 Vitamin B12 1518 pg/mL (193-986) H 09/25/21 05:14 Folate 19.9 ng/mL (>8.6) 09/25/21 05:14 Specimen Type Catherized urine 09/24/21 15:40 Urine Color Dark yellow (YELLOW) 09/24/21 15:40 Urine Appearance Hazy (CLEAR) 09/24/21 15:40 Urine pH 5.0 (5.0 - 8.0) 09/24/21 15:40 Ur Specific [place] 1.020 (1.000-1.030) 09/24/21 15:40 Urine Protein 2+ (NEGATIVE) 09/24/21 15:40 Urine Glucose (UA) Negative (NEGATIVE) 09/24/21 15:40 Urine Ketones Negative (NEGATIVE) 09/24/21 15:40 Urine Occult Blood 1+ (NEGATIVE) 09/24/21 15:40 Urine Nitrite Negative (NEGATIVE) 09/24/21 15:40 Urine Bilirubin 1+ (NEGATIVE) 09/24/21 15:40 Urine Urobilinogen Normal (NORMAL) 09/24/21 15:40 Ur Leukocyte Esterase 1+ (NEGATIVE) 09/24/21 15:40 Urine RBC 3-5 /HPF (0-3) A 09/24/21 15:40 Urine WBC 3-5 /HPF (0-5) 09/24/21 15:40 Ur Squamous Epith Cells Moderate /HPF (NEGATIVE) 09/24/21 15:40 Amorphous Sediment 1+ /HPF (NEGATIVE) 09/24/21 15:40 Urine Bacteria 1+ /HPF (NEGATIVE) 09/24/21 15:40 Hyaline Casts Few /LPF (NEGATIVE) 09/24/21 15:40 Coarse Granular Casts Many /HPF (NEGATIVE) 09/24/21 15:40 Other Casts Few /LPF (NEGATIVE) 09/24/21 15:40 Ur Culture Indicated? No/not indicated 09/24/21 15:40 SARS-CoV-2 (PCR) Negative (NEGATIVE) 09/24/21 12:14 Influenza Type A (PCR) Negative (NEGATIVE) 09/24/21 12:14 Influenza Type B (PCR) Negative (NEGATIVE) 09/24/21 12:14 RSV (PCR) Negative (NEGATIVE) 09/24/21 12:14 Blood Type O POSITIVE 09/25/21 07:03 Antibody Screen Negative 09/25/21 07:03 Crossmatch See Detail 09/25/21 07:03 - Plan (1) A-fib Status: Acute Qualifiers: Atrial fibrillation type: unspecified Qualified Code(s): I48.91 - Unspecified atrial fibrillation (2) Symptomatic anemia Status: Acute (3) Malignant ascites Status: Acute
[2021-09-27] MEDS: NORCO 5/325 MG TAB PO PRN ×2 (11:32→21:30)
[2021-09-27] MEDS ORDERED: PREPARATION H OINT RECTAL PRN (14:05)
[2021-09-27] MEDS: LOPID PO SCH (21:25)
[2021-09-27] MEDS: ZOCOR TAB 20 MG PO SCH (21:26)
[2021-09-28 05:31] LABS: BASOPHILS # (AUTO) 0.1 X10^3/uL (0.0-0.1); BASOPHILS % (AUTO) 0.4 % (0.2-1.0); EOSINOPHILS # (AUTO) 0.1 x10^3/uL (0.0-0.2); EOSINOPHILS % (AUTO) 0.5 % (0.9-2.9); HEMATOCRIT 23.7 % (36.0-47.0); HEMOGLOBIN 7.9 g/dL (12.0-16.0); LYMPHOCYTES # (AUTO) 1.3 X10^3/uL (1.3-2.9); LYMPHOCYTES % (AUTO) 9.4 % (21.0-51.0); MEAN CORPUSCULAR HEMOGLOBIN 31.9 pg (27.0-34.0); MEAN CORPUSCULAR HGB CONC 33.5 g/dL (33.0-35.0); MEAN CORPUSCULAR VOLUME 95.3 fL (80.0-100.0); MEAN PLATELET VOLUME 8.4 fL (7.4-11.0); MONOCYTES # (AUTO) 0.7 x10^3/uL (0.3-0.8); NEUTROPHILS # (AUTO) 11.7 x10^3/uL (2.2-4.8); NEUTROPHILS % (AUTO) 84.7 % (42.0-75.0); PLATELET COUNT 377 X10^3/uL (150.0-450.0); RED BLOOD COUNT 2.49 X10^6/uL (3.5-5.4); RED CELL DISTRIBUTION WIDTH 20.2 % (11.6-16.5); WHITE BLOOD COUNT 13.8 X10^3/uL (3.6-10.0)
[2021-09-28 05:45] LABS: ALANINE AMINOTRANSFERASE 13 Units/L (12-78); ALBUMIN 1.2 g/dL (3.4-5.0); ALKALINE PHOSPHATASE 86 Units/L (46-116); ASPARTATE AMINO TRANSFERASE 39 Units/L (15-37); BLOOD UREA NITROGEN 13 mg/dL (7-18); CALCIUM 7.6 mg/dL (8.5-10.1); CARBON DIOXIDE 17.1 mmol/L (21-32); CHLORIDE 110 mmol/L (98-107); COR CA(FOR HYPOALB) 9.8 mg/dL (8.5-10.1); CREATININE 0.61 mg/dL (0.55-1.02); SODIUM 136 mmol/L (136-145); TOTAL PROTEIN 4.6 g/dL (6.4-8.2); eGFR NON BLACK RACES > 60 (>60)
[2021-09-28 05:58] LABS: ANISOCYTOSIS 1+; BURR CELLS PRESENT; OVALOCYTES PRESENT; PLATELET MORPHOLOGY COMMENT NORMAL (NORMAL)
[2021-09-28] MEDS: NS 1,000 ML IV 1,000 ML IV SCH ×2 (05:58→15:19)
[2021-09-28] MEDS ORDERED: GLUCOPHAGE ONE (07:45)
[2021-09-28] MEDS: TOPROL XL PO SCH (08:36)
[2021-09-28] MEDS: TAB-A-VITE PO SCH (08:36)
[2021-09-28] MEDS: PROTONIX TAB 40 MG PO SCH (08:36)
[2021-09-28] MEDS: PATIENT'S HOME MEDICATION PO SCH (08:36)
[2021-09-28] MEDS: COLACE CAP 100 MG PO SCH (08:36)
[2021-09-28] MEDS: MIRALAX POWDER (1 DOSE 17 G) PO SCH (08:37)
[2021-09-28] MEDS: GLUCOPHAGE PO SCH (08:37)
[2021-09-28] MEDS: MICRO K EXTEN CAP 10 MEQ PO SCH (08:37)
[2021-09-28] MEDS: K-DUR TAB 20 MEQ PO SCH (08:37)
[2021-09-28] MEDS: ELIQUIS PO SCH (08:37)
[2021-09-28] MEDS ORDERED: ALBUMIN HUMAN 25%- 100 ML 100 ML IV SCH (09:00)
[2021-09-28] MEDS: NORCO 5/325 MG TAB PO PRN (09:00)
[2021-09-28 15:13] VITALS: BP 110/69
== END 2021-09-28 17:15 | disposition home or self-care (01) | DRG 309 ==
LOC: ER 09:28 → ICU 14:42
PROVIDERS: ADMIT Obstetrics & Gynecology Obstetrics; ATTEND Internal Medicine
DX: R94.31 Abnormal electrocardiogram [ECG] [EKG]; L89.152 Pressure ulcer of sacral region, stage 2; I10 Essential (primary) hypertension; Z20.822 Contact with and (suspected) exposure to COVID-19; D64.89 Other specified anemias; K21.9 Gastro-esophageal reflux disease without esophagitis; I48.91 Unspecified atrial fibrillation; R10.84 Generalized abdominal pain; E86.0 Dehydration; I25.10 Atherosclerotic heart disease of native coronary artery without angina pectoris; D63.8 Anemia in other chronic diseases classified elsewhere; E78.2 Mixed hyperlipidemia; R26.89 Other abnormalities of gait and mobility; R06.02 Shortness of breath; C56.9 Malignant neoplasm of unspecified ovary; E11.65 Type 2 diabetes mellitus with hyperglycemia; C79.9 Secondary malignant neoplasm of unspecified site; R18.0 Malignant ascites; I95.89 Other hypotension

== ENCOUNTER 2021-10-09 08:19 | Inpatient (IN) ==
--- NOTE | 2021-10-09 09:09 | DR.SOBA ---
HPI Time Seen Time Seen by Provider: 10/09/21 08:58 Primary Care Physician Primary Care Physician: ANANDA CARTAGENA HPI Comment HPI Comment: PATIENT IS 81YR OLD FEMALE IN ER VIA EMS WITH INCREASING SOB AND TENSE ASCITIS AND GENERALIZED WEAKNESS TIMES SEVERAL DAYS. PATIENT HAVE HISTORY OF HTN, DM, ARTHRTIS, DYSLIPIDEMIA AND CAD. PATIENT ALSO HAVE COLON CA 8YRS AGO WITH BOWEL RESECTION. Complaints Chief Complaint Doctors Comments: INCREASING SOB AND TENSE ASCITIS, LACK OF APPETITE AND WEAKNESS THAAT IS WORSE TODAY. Chief Complaint:: EMS OUT TO PT WITH SOB , UPON ARRIVAL TO ER EMS STATES TO PT STATES " SHE IS NOT SOB ".UPON ARRIVAL TO ER PT ASKED WHATS WRONG PT SHAKES HER HEAD ,BR COVID-19 Coronavirus risk:travel/contact w/high risk person: No Has patient experienced Coronavirus symptoms: No Reviewed Nurses Notes Reviewed: Yes Source History Provided: Patient and EMS Mode of Arrival Mode of Arrival: EMS Timing Onset of Chief Complaint: 10/09/21 Context Onset:: At Rest PE Risk Factors:: None History of:: None Currently on:: Neither Prehospital Care:: Furosemide Modifying Factors Worsens:: Exertion and Lying Flat Improves:: Rest and Sitting Up Associated Signs and Symptoms Associated Signs and Symptoms: Leg Swelling If Chest Pain Quality: Pleuritic Location: Substernal If Cough Cough: Productive PMH PMH Past Medical History: Yes Past Medical History: Arthritis, Coronary Artery Disease, Diabetes, Dyslip idemia, GERD and Hypertension Past Surgical History: Yes Surgical History: Bowel Resection Family History History of Family Medical Conditions: Yes Family Medical History: Diabetes Mellitus and Hypertension Social History Does patient currently use any type of tobacco product: No Have you used tobacco products in the last 12 months: No Type of Tobacco Use: None Does any household member use tobacco: No Alcohol Use: None Do you use any recreational Drugs:: No Lives With: Family Lives Where: Home Infectious screening In the last 2 months have you had wt loss of >10#?: NO Have you had fever, night sweats or hemotysis?: No Have you traveled outside the country in the last 6 months?: No Isolation: Standard PE Vital Signs Vitals: Temperature 99.0 F Pulse Rate 79 Respiratory Rate 22 Blood Pressure [Right Arm] 133/59 Blood Pressure [Left Arm] 143/79 Blood Pressure 126/58 O2 Sat by Pulse Oximetry 99 ROR Labs Reviewed Result Diagrams: 10/09/21 09:27 10/09/21 09: Laboratory: WBC 10.7 X10^3/uL (3.6-10.0) H 10/09/21 09: RBC 2.47 X10^6/uL (3.5-5.4) L 10/09/21 09: Hgb 8.2 g/dL (12.0-16.0) L 10/09/21 09: Hct 24.4 % (36.0-47.0) L 10/09/21 09: MCV 99.2 fL (80.0-100.0) 10/09/21: MCH 33.1 pg (27.0-34.0) 10/09/21 MCHC 33.3 g/dL (33.0-35.0) 10/09/21: RDW 22.9 % (11.6-16.5) H 10/09/21: Plt Count 311 X10^3/uL (150.0-450.0) 10/09/21: Plt Count Comment Adequate (ADEQUATE) 10/09/21: MPV 9.6 fL (7.4-11.0) 10/09/21: Neut % (Auto) 84.5 % (42.0-75.0) H 10/09/21: Lymph % (Auto) 9.0 % (21.0-51.0) L 10/09/21: [place] % (Auto) 5.8 % (0.0-13.0) 10/09/21: Eos % (Auto) 0.1 % (0.9-2.9) L 10/09/21: Baso % (Auto) 0.6 % (0.2-1.0) 10/09/21: Neut # (Auto) 9.0 x10^3/uL (2.2-4.8) H 10/09/21: Lymph # (Auto) 1.0 X10^3/uL (1.3-2.9) L 10/09/21 09: [place] # (Auto) 0.6 x10^3/uL (0.3-0.8) 10/09/21 09:27 Eos # (Auto) 0.0 x10^3/uL (0.0-0.2) 10/09/21 09:27 Baso # (Auto) 0.1 X10^3/uL (0.0-0.1) 10/09/21 09:27 Absolute Nucleated RBC 0.4 /100WBC 10/09/21 09:27 Giant Platelets Few 10/09/21 09:27 Plt Morphology Comment Abnormal (NORMAL) A 10/09/21 09:27 RBC Morphology Abnormal (NORMAL) A 10/09/21 09:27 Dimorphic RBCs Slight 10/09/21 09:27 Hypochromasia Slight A 10/09/21 09:27 Poikilocytosis 1+ A 10/09/21 09: Anisocytosis 2+ A 10/09/21 09:27 Tear Drop Cells Present 10/09/21 09:27 Ovalocytes Present 10/09/21 09:27 Acanthocytes (Spur) Present 10/09/21 09:27 Sodium 137 mmol/L (136-145) 10/09/21 09:27 Corrected Sodium TNP 10/09/21 09:27 Potassium 3.9 mmol/L (3.5-5.1) 10/09/21 09:27 Chloride 107 mmol/L (98-107) 10/09/21 09:27 Carbon Dioxide 16.3 mmol/L (21-32) L 10/09/21 09:27 BUN 30 mg/dL (7-18) H 10/09/21 09:27 Creatinine 1.12 mg/dL (0.55-1.02) H 10/09/21 09:27 Est GFR (MDRD) Af Amer 60 (>60) 10/09/21 09:27 Est GFR (MDRD) Non-Af 49 (>60) L 10/09/21 09:27 Glucose 95 mg/dL (65-99) 10/09/21 09:27 Lactic Acid 1.8 mmol/L (0.4-2.0) 10/09/21 09:27 Calcium 8.6 mg/dL (8.5-10.1) 10/09/21 09:27 Corrected Calcium 10.4 mg/dL (8.5-10.1) H 10/09/21 09:27 Total Bilirubin 1.00 mg/dL (0.2-1.0) 10/09/21 09:27 AST 39 Units/L (15-37) H 10/09/21 09:27 ALT 24 Units/L (12-78) 10/09/21 09:27 Alkaline Phosphatase 108 Units/L (46-116) 10/09/21 09:27 Ammonia 29 umol/L (11-32) 10/09/21 09:27 Total Protein 6.0 g/dL (6.4-8.2) L 10/09/21 09:27 Albumin 1.7 g/dL (3.4-5.0) L 10/09/21 09:27 Globulin 4.3 g/dL (2.5-4.5) 10/09/21 09:27 Albumin/Globulin Ratio 0.4 Ratio (1.1-2.1) L 10/09/21 09:27 Amylase 23 Units/L (25-115) L 10/09/21 09:27 Lipase 72 Units/L (73-393) L 10/09/21 09:27 Specimen Type Catherized urine 10/09/21 09:41 Urine Color Yellow (YELLOW) 10/09/21 09:41 Urine Appearance Hazy (CLEAR) 10/09/21 09:41 Urine pH 8.0 (5.0 - 8.0) 10/09/21 09:41 Ur Specific [place] 1.010 (1.000-1.030) 10/09/21 09:41 Urine Protein 3+ (NEGATIVE) 10/09/21 09:41 Urine Glucose (UA) Negative (NEGATIVE) 10/09/21 09:41 Urine Ketones 1+ (NEGATIVE) 10/09/21 09:41 Urine Occult Blood 4+ (NEGATIVE) 10/09/21 09:41 Urine Nitrite Negative (NEGATIVE) 10/09/21 09:41 Urine Bilirubin Negative (NEGATIVE) 10/09/21 09:41 Urine Urobilinogen Normal (NORMAL) 10/09/21 09:41 Ur Leukocyte Esterase 3+ (NEGATIVE) 10/09/21 09:41 Urine RBC 5-10 /HPF (0-3) A 10/09/21 09:41 Urine WBC Tntc /HPF (0-5) A 10/09/21 09:41 Ur Squamous Epith Cells Few /HPF (NEGATIVE) 10/09/21 09:41 Urine Bacteria 3+ /HPF (NEGATIVE) 10/09/21 09:41 Hyaline Casts Few /LPF (NEGATIVE) 10/09/21 09:41 Urine Mucus Many /HPF (NEGATIVE) 10/09/21 09:41 Ur Culture Indicated? Yes/culture set up 10/09/21 09:41 SARS-CoV-2 (PCR) Negative (NEGATIVE) 10/09/21 09:30 Influenza Type A (PCR) Negative (NEGATIVE) 10/09/21 09:30 Influenza Type B (PCR) Negative (NEGATIVE) 10/09/21 09:30 RSV (PCR) Negative (NEGATIVE) 10/09/21 09:30 Opioid Opioid Risk Tool Age (Levi box if 16-45): No History of Preadolescent Sexual Abuse: No Total: 0 Total Score Risk Category: Low Risk Copyright: [employer] predicting aberrant behaviors Diagnosis Discharge Problem: Acute respiratory distress, Tense ascites, Generalized weakness, Acute UTI, Carcinomatosis Colon cancer Qualifiers: Colon location: unspecified part of colon Qualified Code(s): C18.9 - Malignant neoplasm of colon, unspecified Instructions Forms: Precautions for COVID19 [facility] Social Distancing
[2021-10-09 09:40] LABS: BASOPHILS # (AUTO) 0.1 X10^3/uL (0.0-0.1); BASOPHILS % (AUTO) 0.6 % (0.2-1.0); EOSINOPHILS % (AUTO) 0.1 % (0.9-2.9); HEMATOCRIT 24.4 % (36.0-47.0); HEMOGLOBIN 8.2 g/dL (12.0-16.0); MEAN CORPUSCULAR HEMOGLOBIN 33.1 pg (27.0-34.0); MEAN CORPUSCULAR HGB CONC 33.3 g/dL (33.0-35.0); MEAN CORPUSCULAR VOLUME 99.2 fL (80.0-100.0); MEAN PLATELET VOLUME 9.6 fL (7.4-11.0); MONOCYTES # (AUTO) 0.6 x10^3/uL (0.3-0.8); MONOCYTES % (AUTO) 5.8 % (0.0-13.0); NEUTROPHILS % (AUTO) 84.5 % (42.0-75.0); PLATELET COUNT 311 X10^3/uL (150.0-450.0); RED BLOOD COUNT 2.47 X10^6/uL (3.5-5.4); RED CELL DISTRIBUTION WIDTH 22.9 % (11.6-16.5); WHITE BLOOD COUNT 10.7 X10^3/uL (3.6-10.0)
[2021-10-09 09:51] LABS: AMMONIA 29 umol/L (11-32)
[2021-10-09 09:51] LABS: BILIRUBIN,URINE NEGATIVE (NEGATIVE); BLOOD/HEMOGLOBIN,URINE 4+ (NEGATIVE); GLUCOSE, URINE NEGATIVE (NEGATIVE); KETONES,URINE 1+ (NEGATIVE); LEUKOCYTE ESTERASE ,URINE 3+ (NEGATIVE); NITRITES,URINE NEGATIVE (NEGATIVE); PROTEIN,URINE 3+ (NEGATIVE); UROBILINOGEN,URINE NORMAL (NORMAL)
[2021-10-09 09:53] LABS: APPEARANCE,URINE HAZY (CLEAR); COLOR,URINE YELLOW (YELLOW)
[2021-10-09 09:53] LABS: ALANINE AMINOTRANSFERASE 24 Units/L (12-78); ALBUMIN 1.7 g/dL (3.4-5.0); ALKALINE PHOSPHATASE 108 Units/L (46-116); AMYLASE 23 Units/L (25-115); ASPARTATE AMINO TRANSFERASE 39 Units/L (15-37); BLOOD UREA NITROGEN 30 mg/dL (7-18); CALCIUM 8.6 mg/dL (8.5-10.1); CARBON DIOXIDE 16.3 mmol/L (21-32); CHLORIDE 107 mmol/L (98-107); COR CA(FOR HYPOALB) 10.4 mg/dL (8.5-10.1); CREATININE 1.12 mg/dL (0.55-1.02); LIPASE 72 Units/L (73-393); SODIUM 137 mmol/L (136-145); eGFR NON BLACK RACES 49 (>60)
[2021-10-09 09:58] LABS: LACTIC ACID 1.8 mmol/L (0.4-2.0)
[2021-10-09 10:05] LABS: BACTERIA,URINE 3+ /HPF (NEGATIVE); HYALINE CASTS, URINE FEW /LPF (NEGATIVE); SQUAMOUS EPITHELIAL CELL,UR FEW /HPF (NEGATIVE)
[2021-10-09 10:10] LABS: GIANT PLATELET FEW; HYPOCHROMASIA SLIGHT; PLATELET MORPHOLOGY COMMENT ABNORMAL (NORMAL)
[2021-10-09 10:11] LABS: ANISOCYTOSIS 2+; POIKILOCYTOSIS 1+; TEAR DROP CELLS PRESENT
[2021-10-09 10:12] LABS: OVALOCYTES PRESENT
[2021-10-09] MEDS ORDERED: ROCEPHIN 1 GRAM IV PREMIX 1 G/50 ML IV.SOLN. IV ONE (10:24)
[2021-10-09] MEDS ORDERED: NS 50 ML IV + SPIKE MINIBAG* 50 ML IV ONE (10:58)
[2021-10-09] MEDS ORDERED: ROCEPHIN VIAL 1 GRAM ONE (10:58)
[2021-10-09] MEDS ORDERED: NS 100 ML IV 100 ML ONE (11:04)
--- NOTE | 2021-10-09 11:11 | RAD ---
HISTORYSOBSTUDYAP [id number] d to prior exam there is increasing patchy pulmonary density in the retrocardiac left lower lobe adjacent to diaphragm surface. Heart size normal and lungs clear otherwise. No pleural fluid or pneumothorax.IMPRESSIONInterval appearance of a small focus of left lower lobe pneumonia/atelectasis.Electronically signed by: BARRETT ALDRIDGE (Oct 09, 2021 11:08:44)
[2021-10-09] MEDS ORDERED: ROCEPHIN 1 GRAM IV PREMIX 1 G/50 ML IV.SOLN. IV SCH (11:46)
--- NOTE | 2021-10-09 12:18 | DR.H&P ---
H&P - History & Physical for Day of: H&P Date: 10/09/21 - Chief Complaint Chief Complaint: weakness, increased sob - History of Present Illness History of Present Illness: REGINE IS 81YR OLD FEMALE IN ER VIA EMS WITH INCREASING SOB AND TENSE ASCITIS AND GENERALIZED WEAKNESS TIMES SEVERAL DAYS. PATIENT HAVE HISTORY OF HTN, DM, ARTHRTIS, DYSLIPIDEMIA AND CAD. PATIENT ALSO HAVE COLON CA 8YRS AGO WITH BOWEL RESECTION. - Past Medical History Past Medical History: Coronary Artery Disease, Hypertension, Dyslipidemia, Diabetes, GERD, Arthritis Additional Medical History: Hx Diverticulitis, Colon Cancer, Constipation - Past Surgical History Surgical History: Bowel Resection Additional Surgical History: Previous heart cath - Family History Family Medical History: Diabetes Mellitus, Hypertension - Social History Does patient currently use any type of tobacco product: No Have you used tobacco products in the last 12 months: No Type of Tobacco Use: None Does any household member use tobacco: No Alcohol Use: None - Medications Home Medications: SERA Inhibitors Adverse Reaction (Intermediate, Verified 10/09/21 10:42) angioedema CONTINUE taking the following medications iron-folic acid-mv, min cmb#15 [Centratex] 1 cap PO DAILY 10/09/21 [History] - Review of Systems Constitutional: Weakness Eyes: No Symptoms Reported ENT: No Symptoms Reported Respiratory: Shortness of Breath Cardiovascular: Edema Gastrointestinal: Abdominal Pain Genitourinary: No Symptoms Reported Musculoskeletal: No Symptoms Reported Skin: Bruising, Wound Neurological: Weakness - Physical Exam Vital Signs: Temperature 99.0 F Pulse Rate 79 Respiratory Rate 22 Blood Pressure [Right Arm] 133/59 Blood Pressure [Left Arm] 143/79 Blood Pressure 126/58 O2 Sat by Pulse Oximetry 99 Oriented: Normal Eyes: Normal Ear: Normal, Left Throat: Normal Respiratory: RLL Diminished, LLL Diminished Cardiovascular: Normal, Edema : Normal Auscultation: Bowel Sounds: Normal Palpation: Other (diffuse distention) Tenderness: Diffuse, Mild Skin: Decreased Turgur, Wound (bilateral upper extremity skin tears) Musculoskeletal: Normal Psychiatric: Normal Mood Description: Calm Speech Pattern: Clear, Appropriate - Assessment/Plan (1) Pneumonia Status: Acute Plan: ADMIT, RESP THERAPY, SUPPLEMENTAL O2. IV ATBX, BLOOD, URINE AND SPUTUM CULTURES ON ADMISSION. VERIFY HOME MEDICATION. STRICT I&OS WITH FAIRCHILD CATH (2) Malignant ascites Status: Acute (3) Hypertension Status: Chronic (4) GERD (gastroesophageal reflux disease) Status: Chronic - Allergies Allergies/Adverse Reactions: Allergies Allergy/AdvReac Type Severity Reaction Status Date / Time SERA Inhibitors AdvReac Intermediate angioedema Verified 10/09/21 10:42
[2021-10-09] MEDS ORDERED: SALINE 3% 15 ML NEB TX NEB ONE (12:41)
[2021-10-09] MEDS ORDERED: DUONEB 0.5 MG/3 MG (3 mL) NEB ONE (12:49)
[2021-10-09] MEDS: DUONEB 0.5 MG/3 MG (3 mL) NEB SCH ×2 (12:55→20:30)
[2021-10-09] MEDS: LASIX IVP SCH (13:30)
--- NOTE | 2021-10-09 17:24 | RAD ---
EXAM: ABDOMEN X-RAY (or KUB)HISTORY: Abdominal distention.TECHNIQUE: Supine viewCOMPARISON: None.FINDINGS:There are up to 3.4 cm dilated air-filled small bowel loops down to 8 cm dilated air-filled large bowel loops within the abdomen and pelvis, with paucity of air seen within the distal sigmoid and rectum, in keeping with ileus in the appropriate clinical setting; cannot rule out distal large bowel obstruction and the appropriate clinical setting. Consider follow evaluation with CT for further assessment as clinically warranted.There is no gross organomegaly, free intraperitoneal air, or suspicious calcifications seen. The visualized bony structures are within normal limits.IMPRESSION:1. Up to 3.4 cm dilated air-filled small bowel loops down to 8 cm dilated air-filled large bowel loops within the abdomen and pelvis, with paucity of air seen within the distal sigmoid and rectum, in keeping with ileus in the appropriate clinical setting; cannot rule out distal large bowel obstruction and the appropriate clinical setting. Consider follow evaluation with CT for further assessment as clinically warranted.2. No gross organomegaly, discernible free intraperitoneal air, or suspicious calcifications seen.Electronically signed by: Romeo Mazariegos (Oct 09, 2021 17:23:11)
[2021-10-09] MEDS ORDERED: ALBUMIN HUMAN 25%- 100 ML 100 ML IV ONE ×3 (17:37→22:01)
[2021-10-09] MEDS ORDERED: ALBUMIN HUMAN 25%- 100 ML 100 ML IV PRN (17:38)
[2021-10-09] MEDS: MEGACE PO SCH (21:42)
[2021-10-09] MEDS: ELIQUIS PO SCH (21:42)
[2021-10-09] MEDS: [UNRECOGNIZED DRUG - OTHER] PO SCH (21:42)
[2021-10-09] MEDS: ZOCOR TAB 20 MG PO SCH (21:42)
[2021-10-09] MEDS: PROTONIX TAB 40 MG PO SCH (21:43)
[2021-10-09] MEDS: LOPID PO SCH (21:43)
[2021-10-09] MEDS: GLUCOPHAGE PO SCH (21:43)
[2021-10-09] MEDS: ULTRAM PO PRN (21:43)
[2021-10-09] MEDS ORDERED: ALBUMIN HUMAN 25%- 100 ML 100 ML ONE (22:13)
[2021-10-10] MEDS ORDERED: TOPROL XL PO ONE ×2 (04:08→08:37)
[2021-10-10] MEDS: TOPROL XL PO SCH ×2 (04:21→09:13)
[2021-10-10] MEDS: DUONEB 0.5 MG/3 MG (3 mL) NEB SCH ×4 (05:52→20:14)
[2021-10-10 05:56] LABS: BASOPHILS % (AUTO) 0.2 % (0.2-1.0); EOSINOPHILS % (AUTO) 0.1 % (0.9-2.9); HEMATOCRIT 23.6 % (36.0-47.0); HEMOGLOBIN 7.9 g/dL (12.0-16.0); LYMPHOCYTES # (AUTO) 0.8 X10^3/uL (1.3-2.9); LYMPHOCYTES % (AUTO) 13.1 % (21.0-51.0); MEAN CORPUSCULAR HEMOGLOBIN 33.2 pg (27.0-34.0); MEAN CORPUSCULAR HGB CONC 33.5 g/dL (33.0-35.0); MEAN CORPUSCULAR VOLUME 99.1 fL (80.0-100.0); MEAN PLATELET VOLUME 10.4 fL (7.4-11.0); MONOCYTES # (AUTO) 0.2 x10^3/uL (0.3-0.8); MONOCYTES % (AUTO) 3.9 % (0.0-13.0); NEUTROPHILS # (AUTO) 5.3 x10^3/uL (2.2-4.8); NEUTROPHILS % (AUTO) 82.7 % (42.0-75.0); PLATELET COUNT 248 X10^3/uL (150.0-450.0); RED BLOOD COUNT 2.38 X10^6/uL (3.5-5.4); RED CELL DISTRIBUTION WIDTH 23.6 % (11.6-16.5); WHITE BLOOD COUNT 6.4 X10^3/uL (3.6-10.0)
[2021-10-10 06:07] LABS: ALANINE AMINOTRANSFERASE 15 Units/L (12-78); ALBUMIN 2.5 g/dL (3.4-5.0); ALKALINE PHOSPHATASE 64 Units/L (46-116); ASPARTATE AMINO TRANSFERASE 29 Units/L (15-37); BLOOD UREA NITROGEN 28 mg/dL (7-18); CALCIUM 8.4 mg/dL (8.5-10.1); CARBON DIOXIDE 15.8 mmol/L (21-32); CHLORIDE 110 mmol/L (98-107); COR CA(FOR HYPOALB) 9.6 mg/dL (8.5-10.1); CREATININE 0.87 mg/dL (0.55-1.02); SODIUM 140 mmol/L (136-145); TOTAL PROTEIN 5.4 g/dL (6.4-8.2); eGFR NON BLACK RACES > 60 (>60)
[2021-10-10 06:36] LABS: HYPOCHROMASIA SLIGHT; PLATELET MORPHOLOGY COMMENT NORMAL (NORMAL); POIKILOCYTOSIS 1+
[2021-10-10 06:37] LABS: ANISOCYTOSIS 2+; TEAR DROP CELLS PRESENT
[2021-10-10 06:39] LABS: OVALOCYTES PRESENT
[2021-10-10] MEDS ORDERED: POTASSIUM CHL 40 MEQ/NS 0.45% 500 ML IV PRN (06:46)
[2021-10-10] MEDS ORDERED: MICRO K EXTEN CAP 10 MEQ PO PRN (06:46)
[2021-10-10] MEDS ORDERED: KLOR-CON PO PRN (06:46)
[2021-10-10] MEDS ORDERED: POTASSIUM CHL 60 MEQ/NS 0.45% 500 ML IV PRN (06:46)
[2021-10-10] MEDS ORDERED: POTASSIUM CHLORIDE LIQ 20 MEQ UDC PO PRN (06:46)
[2021-10-10] MEDS ORDERED: GLUCOPHAGE ONE ×2 (08:37→19:48)
[2021-10-10] MEDS ORDERED: ROCEPHIN 1 GRAM IV PREMIX 1 G/50 ML IV.SOLN. IV SCH (09:00)
[2021-10-10] MEDS: K-DUR TAB 20 MEQ PO PRN (09:12)
[2021-10-10] MEDS: PROTONIX TAB 40 MG PO SCH ×2 (09:13→20:33)
[2021-10-10] MEDS: TAB-A-VITE PO SCH (09:13)
[2021-10-10] MEDS: LASIX IVP SCH (09:14)
[2021-10-10] MEDS: ELIQUIS PO SCH ×2 (09:14→20:34)
[2021-10-10] MEDS: MEGACE PO SCH ×2 (09:14→20:34)
[2021-10-10] MEDS: K-DUR TAB 20 MEQ PO SCH (09:14)
[2021-10-10] MEDS: [UNRECOGNIZED DRUG - OTHER] PO SCH (09:18)
[2021-10-10] MEDS: GLUCOPHAGE PO SCH ×2 (09:18→20:35)
[2021-10-10] MEDS: VSL#3 PO SCH (09:19)
[2021-10-10] MEDS ORDERED: NS 250 ML IV 250 ML IV ONE (09:22)
[2021-10-10] MEDS: MAGNESIUM SULFATE 1 GRAM/100 mL PREMIX 1 G/100 ML BAG IV PRN ×2 (09:30→16:55)
[2021-10-10 10:12] VITALS: BMI 33.8
--- NOTE | 2021-10-10 13:19 | RAD ---
HISTORYPNEUMONIASTUDYCHEST, 1 [id number]/01/2022.TECHNIQUEAP chest, 2 images.FINDINGSPatient is rotated. Patient's chin obscures portions of the left apex. There is silhouetting of the left hemidiaphragm suggesting left lower lobe airspace opacity. The right lung appears clear. No pneumothorax. Cannot exclude small left pleural effusion.IMPRESSIONWorsened left base pneumonia.Electronically signed by: Wilmer Hicks (Oct 10, 2021 13:17:58)
[2021-10-10 20:26] LABS: HEMATOCRIT 23.4 % (36.0-47.0); HEMOGLOBIN 7.9 g/dL (12.0-16.0)
[2021-10-10] MEDS: LOPID PO SCH (20:33)
[2021-10-10] MEDS: ZOCOR TAB 20 MG PO SCH (20:33)
[2021-10-10] MEDS ORDERED: LANOXIN INJ ONE (21:36)
[2021-10-10] MEDS: LANOXIN INJ IVP SCH (21:43)
[2021-10-11] MEDS: LANOXIN INJ IVP SCH (03:18)
[2021-10-11 05:10] LABS: BASOPHILS % (AUTO) 0.2 % (0.2-1.0); EOSINOPHILS % (AUTO) 0.1 % (0.9-2.9); HEMATOCRIT 24.6 % (36.0-47.0); HEMOGLOBIN 8.2 g/dL (12.0-16.0); LYMPHOCYTES # (AUTO) 1.1 X10^3/uL (1.3-2.9); LYMPHOCYTES % (AUTO) 11.7 % (21.0-51.0); MEAN CORPUSCULAR HEMOGLOBIN 32.9 pg (27.0-34.0); MEAN CORPUSCULAR HGB CONC 33.3 g/dL (33.0-35.0); MEAN CORPUSCULAR VOLUME 98.7 fL (80.0-100.0); MEAN PLATELET VOLUME 10.1 fL (7.4-11.0); MONOCYTES # (AUTO) 0.5 x10^3/uL (0.3-0.8); MONOCYTES % (AUTO) 5.3 % (0.0-13.0); NEUTROPHILS # (AUTO) 7.8 x10^3/uL (2.2-4.8); NEUTROPHILS % (AUTO) 82.7 % (42.0-75.0); PLATELET COUNT 282 X10^3/uL (150.0-450.0); RED CELL DISTRIBUTION WIDTH 24.1 % (11.6-16.5); WHITE BLOOD COUNT 9.5 X10^3/uL (3.6-10.0)
[2021-10-11 05:23] LABS: ALANINE AMINOTRANSFERASE 17 Units/L (12-78); ALBUMIN 2.1 g/dL (3.4-5.0); ALKALINE PHOSPHATASE 76 Units/L (46-116); ASPARTATE AMINO TRANSFERASE 29 Units/L (15-37); BLOOD UREA NITROGEN 30 mg/dL (7-18); CALCIUM 8.8 mg/dL (8.5-10.1); CARBON DIOXIDE 18.3 mmol/L (21-32); CHLORIDE 113 mmol/L (98-107); COR CA(FOR HYPOALB) 10.3 mg/dL (8.5-10.1); COR NA(FOR HYPERGLY) 143 mmol/L (136-145); CREATININE 0.97 mg/dL (0.55-1.02); SODIUM 143 mmol/L (136-145); TOTAL PROTEIN 5.6 g/dL (6.4-8.2); eGFR NON BLACK RACES 58 (>60)
[2021-10-11 05:27] LABS: ANISOCYTOSIS 3+; HYPOCHROMASIA SLIGHT; PLATELET MORPHOLOGY COMMENT NORMAL (NORMAL); POIKILOCYTOSIS 1+
[2021-10-11 05:28] LABS: OVALOCYTES PRESENT; TEAR DROP CELLS PRESENT
[2021-10-11] MEDS: DUONEB 0.5 MG/3 MG (3 mL) NEB SCH ×3 (06:06→20:15)
[2021-10-11] MEDS ORDERED: TOPROL XL PO ONE (09:06)
[2021-10-11] MEDS ORDERED: GLUCOPHAGE ONE (09:06)
[2021-10-11] MEDS: ELIQUIS PO SCH ×2 (09:12→21:16)
[2021-10-11] MEDS: GLUCOPHAGE PO SCH ×2 (09:12→21:18)
[2021-10-11] MEDS: LASIX IVP SCH (09:13)
[2021-10-11] MEDS: TAB-A-VITE PO SCH (09:14)
[2021-10-11] MEDS: MEGACE PO SCH ×2 (09:14→21:16)
[2021-10-11] MEDS: LEVAQUIN PREMIX IV 500 MG 500 MG/100 ML BAG IV SCH (09:14)
[2021-10-11] MEDS: TOPROL XL PO SCH (09:14)
[2021-10-11] MEDS: VSL#3 PO SCH (09:15)
[2021-10-11] MEDS: PROTONIX TAB 40 MG PO SCH ×2 (09:15→21:16)
[2021-10-11] MEDS: ULTRAM PO PRN ×2 (09:30→15:12)
[2021-10-11] MEDS: FORTAZ or TAZICEF VIAL INJ 1 G in NS 100 ML IV + SPIKE MINIBAG* 100 ML IV SCH ×3 (10:35→21:26)
[2021-10-11] MEDS: K-DUR TAB 20 MEQ PO SCH (10:35)
--- NOTE | 2021-10-11 13:47 | PCM.PROG ---
Progress Note - Progress Note for Day of Date of Exam: 10/11/21 - Subjective Subjective: WAS ADMITTED TO THE HOSPITAL ON 10/09/21 FOR TREATMENT OF LEFT LOWER LOBE PNEUMONIA, UTI, MALIGNANT ASCITES, AND INFECTED DECUBITUS ULCER TO SACRUM. PATIENT HAS A HISTORY OF COLON CANCER. SHE HAS PREVIOUSLY BEEN ON CHEMOTHERAPY. SHE HAD A PARACENTESIS ON ADMISSION WITH APPROXIMATELY 1,000 ML OF BLOOD DRAINAGE EMPTIED. THERE DRAINAGE TUBE CAME OUT YESTERDAY. TODAY, SHE IS ALERT, LYING IN BED ON MORNING ROUNDS. SHE CONTINUES WITH ABDOMINAL DISTENSION AND TENDERNESS. SHE ALSO CONTINUES WITH GENERALIZED WEAKNESS. ON EXAMINATION, SHE IS TACHYCARDIC. HR IS IRREGULAR. BILATERAL LUNGS NOTED WITH DIMINISHED LUNG SOUNDS THROUGHOUT. ABDOMEN IS DISTENDED AND NOTED WITH DIFFUSE TENDERNESS. THERE IS A SACRAL PRESSURE ULCER NOTED WITH DRAINAGE. HER VITALS THIS MORNING ARE: 99.4-134-36-99%-135/82. LABS WERE OBTAINED. ABNORMAL LAB VALUES INCLUDE THE FOLLOWING: RBC 2.50, HGB 8.2, HCT 24.6, CHLORIDE 113, CARBON DIOXIDE 18.3, BUN 30, GLUCOSE 116, TOTAL PROTEIN 5.6, ALBUMIN 2.1. URINE, BLOOD, AND WOUND CULTURES ARE PENDING. SHE IS CURRENTLY RECEIVING ROCEPHIN 1G IV DAILY, DUONEBS TID, LASIX 20MG IV DAILY, THE POTASSIUM AND MAGNESIUM PROTOCOLS, AND HOME MEDICATIONS OF ELIQUIS, MEGACE, GLUCOPHAGE, TOPROL, MULTIVITAMINS, PROTONIX, ZOCOR, AND ULTRAM WERE RESUMED. TODAY, WE WILL DISCONTINUE THE ROCEPHIN AND START LEVAQUIN 500MG IV DAILY AND FORTAZ 1G IV Q8H. OTHERWISE, WE PLAN TO FOLLOW UP WITH AM LABS AND CONTINUE TO MONITOR. TIME SPENT ON CLINICAL ASSESSMENT, REVIEWING LABS AND IMAGING, DECISION MAKING, AND DOCUMENTATION GREATER THAN 45 MINUTES. - Past Medical Family Social History Past Med/Fam/Surg Hx: No changes since H&P Allergies: Allergies SERA Inhibitors Adverse Reaction (Intermediate, Verified 10/09/21 10:42) angioedema - Review of Systems ROS: No change since H&P - Vital Signs and I&O's Vital Signs: Temperature 97.6 F Pulse Rate [Right Brachial] 60 Pulse Rate 166 Respiratory Rate 36 Blood Pressure [Right Arm] 187/67 Blood Pressure [Left Arm] 143/79 Blood Pressure 126/58 O2 Sat by Pulse Oximetry 98 Intake and Output: Intake & Output 10/09/21 10/10/21 10/11/21 10/12/21 11:59 11:59 11:59 11:59 Intake Total 500 / 500 360 / 360 Output Total 7800 / 7800 2250 / 2250 Balance -7300 / -7300 -1890 / -1890 - Physical Exam Oriented: Normal Eyes: Normal Ear: Normal Throat: Normal Respiratory: Generalized, Rhonchi Cardiovascular: Tachycardia, Irregular, Edema : Normal Auscultation: Bowel Sounds: Normal Tenderness: Diffuse, Mild Skin: Decreased Turgur, Wound (bilateral upper extremity skin tears) Musculoskeletal: Normal Psychiatric: Normal Mood Description: Calm Affect: Normal Speech Pattern: Clear, Appropriate - Laboratory and Diagnostics Result Diagrams: 10/11/21 04:43 10/11/21 04:43 Labs: 10/09/21 12:50 Blood Blood Culture - Preliminary 10/09/21 09:27 Blood Blood Culture - Preliminary 10/09/21 15:00 Sacral Wound Gram Stain - Final 10/09/21 15:00 Sacral Wound Culture - Final Klebsiella Pneumoniae Proteus Mirabilis 10/09/21 09:41 Urine,Catheterized Urine Culture - Final Proteus Mirabilis Laboratory WBC 9.5 X10^3/uL (3.6-10.0) 10/11/21 04:43 RBC 2.50 X10^6/uL (3.5-5.4) L 10/11/21 04:43 Hgb 8.2 g/dL (12.0-16.0) L 10/11/21 04:43 Hct 24.6 % (36.0-47.0) L 10/11/21 04:43 MCV 98.7 fL (80.0-100.0) 10/11/21 04:43 MCH 32.9 pg (27.0-34.0) 10/11/21 04:43 MCHC 33.3 g/dL (33.0-35.0) 10/11/21 04:43 RDW 24.1 % (11.6-16.5) H 10/11/21 04:43 Plt Count 282 X10^3/uL (150.0-450.0) 10/11/21 04:43 Plt Count Comment Adequate (ADEQUATE) 10/11/21 04:43 MPV 10.1 fL (7.4-11.0) 10/11/21 04:43 Neut % (Auto) 82.7 % (42.0-75.0) H 10/11/21 04:43 Lymph % (Auto) 11.7 % (21.0-51.0) L 10/11/21 04:43 [place] % (Auto) 5.3 % (0.0-13.0) 10/11/21 04:43 Eos % (Auto) 0.1 % (0.9-2.9) L 10/11/21 04:43 Baso % (Auto) 0.2 % (0.2-1.0) 10/11/21 04:43 Neut # (Auto) 7.8 x10^3/uL (2.2-4.8) H 10/11/21 04:43 Lymph # (Auto) 1.1 X10^3/uL (1.3-2.9) L 10/11/21 04:43 [place] # (Auto) 0.5 x10^3/uL (0.3-0.8) 10/11/21 04:43 Eos # (Auto) 0.0 x10^3/uL (0.0-0.2) 10/11/21 04:43 Baso # (Auto) 0.0 X10^3/uL (0.0-0.1) 10/11/21 04:43 Absolute Nucleated RBC 0.4 /100WBC 10/11/21 04:43 Giant Platelets Few 10/09/21 09:27 Plt Morphology Comment Normal (NORMAL) 10/11/21 04:43 RBC Morphology Abnormal (NORMAL) A 10/11/21 04:43 Dimorphic RBCs Slight 10/10/21 04:30 Hypochromasia Slight A 10/11/21 04:43 Poikilocytosis 1+ A 10/11/21 04:43 Anisocytosis 3+ A 10/11/21 04:43 Tear Drop Cells Present 10/11/21 04:43 Ovalocytes Present 10/11/21 04:43 Acanthocytes (Spur) Present 10/10/21 04:30 Sodium 143 mmol/L (136-145) 10/11/21 04:43 Corrected Sodium 143 mmol/L (136-145) 10/11/21 04:43 Potassium 3.7 mmol/L (3.5-5.1) 10/11/21 04:43 Chloride 113 mmol/L (98-107) H 10/11/21 04:43 Carbon Dioxide 18.3 mmol/L (21-32) L 10/11/21 04:43 BUN 30 mg/dL (7-18) H 10/11/21 04:43 Creatinine 0.97 mg/dL (0.55-1.02) 10/11/21 04:43 Est GFR (MDRD) Af Amer > 60 (>60) 10/11/21 04:43 Est GFR (MDRD) Non-Af 58 (>60) L 10/11/21 04:43 Glucose 116 mg/dL (65-99) H 10/11/21 04:43 POC Glucose (mg/dL) 115 mg/dL (65-99) H 10/11/21 11:43 Lactic Acid 1.8 mmol/L (0.4-2.0) 10/09/21 09:27 Calcium 8.8 mg/dL (8.5-10.1) 10/11/21 04:43 Corrected Calcium 10.3 mg/dL (8.5-10.1) H 10/11/21 04:43 Magnesium 2.1 mg/dL (1.7-2.9) 10/11/21 04:43 Total Bilirubin 0.90 mg/dL (0.2-1.0) 10/11/21 04:43 AST 29 Units/L (15-37) 10/11/21 04:43 ALT 17 Units/L (12-78) 10/11/21 04:43 Alkaline Phosphatase 76 Units/L (46-116) 10/11/21 04:43 Ammonia 29 umol/L (11-32) 10/09/21 09:27 Total Protein 5.6 g/dL (6.4-8.2) L 10/11/21 04:43 Albumin 2.1 g/dL (3.4-5.0) L 10/11/21 04:43 Globulin 3.5 g/dL (2.5-4.5) 10/11/21 04:43 Albumin/Globulin Ratio 0.6 Ratio (1.1-2.1) L 10/11/21 04:43 Amylase 23 Units/L (25-115) L 10/09/21 09:27 Lipase 72 Units/L (73-393) L 10/09/21 09:27 Specimen Type Catherized urine 10/09/21 09:41 Urine Color Yellow (YELLOW) 10/09/21 09:41 Urine Appearance Hazy (CLEAR) 10/09/21 09:41 Urine pH 8.0 (5.0 - 8.0) 10/09/21 09:41 Ur Specific [place] 1.010 (1.000-1.030) 10/09/21 09:41 Urine Protein 3+ (NEGATIVE) 10/09/21 09:41 Urine Glucose (UA) Negative (NEGATIVE) 10/09/21 09:41 Urine Ketones 1+ (NEGATIVE) 10/09/21 09:41 Urine Occult Blood 4+ (NEGATIVE) 10/09/21 09:41 Urine Nitrite Negative (NEGATIVE) 10/09/21 09:41 Urine Bilirubin Negative (NEGATIVE) 10/09/21 09:41 Urine Urobilinogen Normal (NORMAL) 10/09/21 09:41 Ur Leukocyte Esterase 3+ (NEGATIVE) 10/09/21 09:41 Urine RBC 5-10 /HPF (0-3) A 10/09/21 09:41 Urine WBC Tntc /HPF (0-5) A 10/09/21 09:41 Ur Squamous Epith Cells Few /HPF (NEGATIVE) 10/09/21 09:41 Urine Bacteria 3+ /HPF (NEGATIVE) 10/09/21 09:41 Hyaline Casts Few /LPF (NEGATIVE) 10/09/21 09:41 Urine Mucus Many /HPF (NEGATIVE) 10/09/21 09:41 Ur Culture Indicated? Yes/culture set up 10/09/21 09:41 SARS-CoV-2 (PCR) Negative (NEGATIVE) 10/09/21 09:30 Influenza Type A (PCR) Negative (NEGATIVE) 10/09/21 09:30 Influenza Type B (PCR) Negative (NEGATIVE) 10/09/21 09:30 RSV (PCR) Negative (NEGATIVE) 10/09/21 09:30 - Plan (1) Pneumonia Status: Acute Qualifiers: Pneumonia type: due to unspecified organism Laterality: left Lung location: lower lobe of lung Qualified Code(s): J18.9 - Pneumonia, unspecified organism Plan: RESP THERAPY, SUPPLEMENTAL O2. IV ATBX, BLOOD, URINE AND WOUND CULTURES PENDING. STRICT I&OS WITH FAIRCHILD CATH (2) Acute UTI Status: Acute (3) Malignant ascites Status: Acute (4) Anemia Status: Acute Qualifiers: Anemia type: unspecified type Qualified Code(s): D64.9 - Anemia, unspecified (5) Infected decubitus ulcer Status: Acute Qualifiers: Pressure injury stage: unspecified pressure injury stage Qualified Code(s): L89.90 - Pressure ulcer of unspecified site, unspecified stage; L08.9 - Local infection of the skin and subcutaneous tissue, unspecified
[2021-10-11] MEDS: LOPID PO SCH (21:16)
[2021-10-11] MEDS: ZOCOR TAB 20 MG PO SCH (21:17)
[2021-10-11] MEDS: SANTYL EXT SCH (21:18)
[2021-10-11] MEDS ORDERED: NS 250 ML IV 250 ML IV ONE (21:28)
[2021-10-11] MEDS ORDERED: NS 100 ML IV 100 ML ONE (23:35)
[2021-10-11] MEDS ORDERED: CARDIZEM INJ 125 MG VIAL ONE (23:36)
[2021-10-11] MEDS: CARDIZEM INJ 125 MG VIAL 125 MG in NS 100 ML IV 100 ML IV PRN (23:50)
[2021-10-12 05:13] LABS: BASOPHILS % (AUTO) 0.2 % (0.2-1.0); EOSINOPHILS % (AUTO) 0.1 % (0.9-2.9); HEMATOCRIT 21.6 % (36.0-47.0); HEMOGLOBIN 7.2 g/dL (12.0-16.0); LYMPHOCYTES # (AUTO) 0.7 X10^3/uL (1.3-2.9); LYMPHOCYTES % (AUTO) 8.6 % (21.0-51.0); MEAN CORPUSCULAR HEMOGLOBIN 33.3 pg (27.0-34.0); MEAN CORPUSCULAR HGB CONC 33.2 g/dL (33.0-35.0); MEAN CORPUSCULAR VOLUME 100.2 fL (80.0-100.0); MEAN PLATELET VOLUME 9.9 fL (7.4-11.0); MONOCYTES # (AUTO) 0.5 x10^3/uL (0.3-0.8); MONOCYTES % (AUTO) 5.9 % (0.0-13.0); NEUTROPHILS # (AUTO) 6.9 x10^3/uL (2.2-4.8); NEUTROPHILS % (AUTO) 85.2 % (42.0-75.0); PLATELET COUNT 247 X10^3/uL (150.0-450.0); RED BLOOD COUNT 2.16 X10^6/uL (3.5-5.4); RED CELL DISTRIBUTION WIDTH 24.8 % (11.6-16.5)
[2021-10-12 05:23] LABS: ALANINE AMINOTRANSFERASE 28 Units/L (12-78); ALBUMIN 1.7 g/dL (3.4-5.0); ALKALINE PHOSPHATASE 78 Units/L (46-116); ASPARTATE AMINO TRANSFERASE 50 Units/L (15-37); BLOOD UREA NITROGEN 32 mg/dL (7-18); CALCIUM 8.5 mg/dL (8.5-10.1); CARBON DIOXIDE 20.9 mmol/L (21-32); COR CA(FOR HYPOALB) 10.3 mg/dL (8.5-10.1); CREATININE 0.99 mg/dL (0.55-1.02); SODIUM 147 mmol/L (136-145); TOTAL PROTEIN 4.9 g/dL (6.4-8.2); eGFR NON BLACK RACES 57 (>60)
[2021-10-12] MEDS: FORTAZ or TAZICEF VIAL INJ 1 G in NS 100 ML IV + SPIKE MINIBAG* 100 ML IV SCH ×3 (05:30→22:00)
[2021-10-12 05:35] LABS: CHLORIDE 116 mmol/L (98-107)
--- NOTE | 2021-10-12 05:42 | RAD ---
PROCEDURE: Chest X-ray 1 View .HISTORY: Dyspnea.TECHNIQUE: AP view .COMPARISON: 10/10/2021.TECHNICAL QUALITY: Satisfactory .FINDINGS:Normal size heart .Mediastinum and hilar regions show no masses or lymphadenopathy .Normal central vascularity .Possible atelectasis left lower lobe with infiltrate not definitely visualized today. Remainder lungs are clear.No acute bony abnormality .IMPRESSION:Left lower lobe atelectasis without definite pneumonia today. Follow-up films may be helpful.Electronically signed by: Samy Montes (Oct 12, 2021 05:41:35)
[2021-10-12 05:47] LABS: HYPOCHROMASIA 1+; PLATELET MORPHOLOGY COMMENT NORMAL (NORMAL)
[2021-10-12 05:48] LABS: ANISOCYTOSIS 2+; TEAR DROP CELLS PRESENT
[2021-10-12] MEDS: DUONEB 0.5 MG/3 MG (3 mL) NEB SCH ×3 (06:13→20:30)
[2021-10-12] MEDS ORDERED: GLUCOPHAGE ONE ×2 (08:31→21:16)
[2021-10-12] MEDS ORDERED: TOPROL XL PO ONE (08:32)
[2021-10-12] MEDS: LEVAQUIN PREMIX IV 500 MG 500 MG/100 ML BAG IV SCH (09:27)
[2021-10-12] MEDS: LASIX IVP SCH (09:28)
[2021-10-12] MEDS: VSL#3 PO SCH (09:28)
[2021-10-12] MEDS: TOPROL XL PO SCH (09:29)
[2021-10-12] MEDS: K-DUR TAB 20 MEQ PO SCH (09:29)
[2021-10-12] MEDS: GLUCOPHAGE PO SCH ×2 (09:29→21:30)
[2021-10-12] MEDS: MEGACE PO SCH ×2 (09:30→21:30)
[2021-10-12] MEDS: PROTONIX TAB 40 MG PO SCH ×2 (09:30→21:30)
[2021-10-12] MEDS: TAB-A-VITE PO SCH (09:30)
[2021-10-12] MEDS: ELIQUIS PO SCH ×2 (09:30→21:30)
[2021-10-12] MEDS: SANTYL EXT SCH ×2 (09:35→21:30)
[2021-10-12] MEDS ORDERED: NS 500 ML IV 500 ML IV ONE (09:47)
[2021-10-12] MEDS ORDERED: TYLENOL 325 MG TAB PO PRN (09:47)
[2021-10-12] MEDS: ALBUMIN HUMAN 25%- 100 ML 100 ML IV SCH (11:56)
[2021-10-12] MEDS: CARDIZEM INJ 125 MG VIAL 125 MG in NS 100 ML IV 100 ML IV PRN (11:57)
--- NOTE | 2021-10-12 15:04 | RAD ---
HISTORYConstipation ovarian and colon [facility], abdomen-pelvic CT 09/23/2021FINDINGSThere is moderate gaseous dilatation of scattered segments of small bowel and colon. There is no evidence for pneumatosis. Indistinct definition of the flank stripes is consistent with previously demonstrated ascites. The retroperitoneal structures are obscured. No abnormal calcification is demonstrated. Airspace disease is noted in the left lower lung.IMPRESSIONIntestinal distention, the appearance of which is most consistent with a reflex ileus rather than a distal obstruction. An obstructing lesion was not identified on recent abdomen CT.Electronically signed by: BARRETT ALDRIDGE (Oct 12, 2021 15:01:55)
[2021-10-12] MEDS: K-DUR TAB 20 MEQ PO PRN (15:55)
[2021-10-12] MEDS: ZOCOR TAB 20 MG PO SCH (21:30)
[2021-10-12] MEDS: LOPID PO SCH (21:30)
[2021-10-12] MEDS ORDERED: LANOXIN INJ IVP ONE (21:34)
[2021-10-13 00:42] LABS: HEMATOCRIT 30.4 % (36.0-47.0)
[2021-10-13 01:00] LABS: HEMOGLOBIN 10.4 g/dL (12.0-16.0)
[2021-10-13] MEDS: K-RIDER 10 MEQ/NS 100 ML 10 MEQ/100 ML BAG IV PRN ×3 (01:15→03:31)
[2021-10-13] MEDS: FORTAZ or TAZICEF VIAL INJ 1 G in NS 100 ML IV + SPIKE MINIBAG* 100 ML IV SCH ×3 (06:00→21:07)
[2021-10-13] MEDS: DUONEB 0.5 MG/3 MG (3 mL) NEB SCH ×3 (06:06→20:00)
--- NOTE | 2021-10-13 07:14 | RAD ---
HISTORYSOBSTUDYCHEST, 1 [id number]/04/2022.TECHNIQUEAP view of the chestFINDINGSPatient is rotated. Cardiac and mediastinal contours are within normal limits. Stable left base airspace opacity. Small left pleural effusion. No pneumothorax.IMPRESSIONNo significant change. Patchy left base opacity may represent atelectasis or pneumonia. Small left pleural effusion.Electronically signed by: Wilmer Hicks (Oct 13, 2021 07:12:29)
[2021-10-13 07:38] LABS: BASOPHILS % (AUTO) 0.4 % (0.2-1.0); EOSINOPHILS % (AUTO) 0.1 % (0.9-2.9); HEMATOCRIT 32.4 % (36.0-47.0); HEMOGLOBIN 11.2 g/dL (12.0-16.0); LYMPHOCYTES # (AUTO) 0.8 X10^3/uL (1.3-2.9); LYMPHOCYTES % (AUTO) 10.2 % (21.0-51.0); MEAN CORPUSCULAR HEMOGLOBIN 32.1 pg (27.0-34.0); MEAN CORPUSCULAR HGB CONC 34.6 g/dL (33.0-35.0); MEAN CORPUSCULAR VOLUME 92.6 fL (80.0-100.0); MEAN PLATELET VOLUME 9.6 fL (7.4-11.0); MONOCYTES # (AUTO) 0.5 x10^3/uL (0.3-0.8); MONOCYTES % (AUTO) 6.3 % (0.0-13.0); NEUTROPHILS # (AUTO) 6.6 x10^3/uL (2.2-4.8); PLATELET COUNT 195 X10^3/uL (150.0-450.0); RED CELL DISTRIBUTION WIDTH 20.6 % (11.6-16.5)
[2021-10-13 07:49] LABS: ALANINE AMINOTRANSFERASE 26 Units/L (12-78); ALBUMIN 1.9 g/dL (3.4-5.0); ALKALINE PHOSPHATASE 77 Units/L (46-116); ASPARTATE AMINO TRANSFERASE 42 Units/L (15-37); BLOOD UREA NITROGEN 27 mg/dL (7-18); CALCIUM 8.8 mg/dL (8.5-10.1); CARBON DIOXIDE 17.6 mmol/L (21-32); COR CA(FOR HYPOALB) 10.5 mg/dL (8.5-10.1); CREATININE 0.84 mg/dL (0.55-1.02); TOTAL PROTEIN 5.3 g/dL (6.4-8.2); eGFR NON BLACK RACES > 60 (>60)
[2021-10-13 07:54] LABS: ANISOCYTOSIS 1+; CHLORIDE 121 mmol/L (98-107); PLATELET MORPHOLOGY COMMENT NORMAL (NORMAL); SODIUM 151 mmol/L (136-145)
[2021-10-13 07:55] LABS: BURR CELLS PRESENT; OVALOCYTES PRESENT
[2021-10-13] MEDS ORDERED: TOPROL XL PO ONE (09:08)
[2021-10-13] MEDS ORDERED: GLUCOPHAGE ONE ×2 (09:08→20:08)
[2021-10-13] MEDS: ALBUMIN HUMAN 25%- 100 ML 100 ML IV SCH (09:20)
[2021-10-13] MEDS: LASIX IVP SCH (09:23)
[2021-10-13] MEDS: TOPROL XL PO SCH (09:23)
[2021-10-13] MEDS: MEGACE PO SCH ×2 (09:23→21:07)
[2021-10-13] MEDS: VSL#3 PO SCH (09:24)
[2021-10-13] MEDS: K-DUR TAB 20 MEQ PO SCH (09:24)
[2021-10-13] MEDS: ELIQUIS PO SCH ×2 (09:24→21:07)
[2021-10-13] MEDS: PROTONIX TAB 40 MG PO SCH ×2 (09:24→21:07)
[2021-10-13] MEDS: TAB-A-VITE PO SCH (09:24)
[2021-10-13] MEDS: GLUCOPHAGE PO SCH ×2 (09:25→21:08)
[2021-10-13] MEDS: SANTYL EXT SCH (09:28)
[2021-10-13] MEDS: LEVAQUIN PREMIX IV 500 MG 500 MG/100 ML BAG IV SCH (10:30)
[2021-10-13] MEDS: CARDIZEM CD 120 MG 24-HR PO SCH (11:55)
--- NOTE | 2021-10-13 12:29 | PCM.PROG ---
Progress Note - Progress Note for Day of Date of Exam: 10/12/21 - Subjective Subjective: WAS ADMITTED TO THE HOSPITAL ON 10/09/21 FOR TREATMENT OF LEFT LOWER LOBE PNEUMONIA, UTI, MALIGNANT ASCITES, AND INFECTED DECUBITUS ULCER TO SACRUM. PATIENT HAS A HISTORY OF COLON CANCER. SHE HAS PREVIOUSLY BEEN ON CHEMOTHERAPY. SHE HAD A PARACENTESIS ON ADMISSION WITH APPROXIMATELY 1,000 ML OF BLOOD DRAINAGE EMPTIED. THERE DRAINAGE TUBE CAME OUT ON MONDAY. SHE WAS STARTED ON A CARDIZEM DRIP THROUGHOUT THE NIGHT DUE TO PERSISTENT ELEVATED HEART RATE. TODAY, SHE IS ALERT, LYING IN BED ON MORNING ROUNDS. SHE CONTINUES WITH ABDOMINAL DISTENSION AND TENDERNESS. SHE ALSO CONTINUES WITH GENERALIZED WEAKNESS. ON EXAMINATION, HEART IS REGULAR IN RATE. RHYTHM IS IRREGULAR. BILATERAL LUNGS NOTED WITH DIMINISHED LUNG SOUNDS THROUGHOUT. ABDOMEN IS DISTENDED AND NOTED WITH DIFFUSE TENDERNESS. THERE IS A SACRAL PRESSURE ULCER NOTED WITH DRAINAGE. HER VITALS THIS MORNING ARE: 98.2-98-28-99%-120/50. LABS WERE OBTAINED. ABNORMAL LAB VALUES INCLUDE THE FOLLOWING: RBC 2.16, HGB 7.2, HCT 21.6, SODIUM 147, POTASSIUM 3.1, CHLORIDE 116, CARBON DIOXIDE 20.9, BUN 32, AST 50, TOTAL PROTEIN 4.9, ALBUMIN 1.7. WOUND CULTURES ARE POSITIVE FOR KLEBSIELLA PNEUMONIAE AND PROTEUS MIRABILIS. URINE CULTURE IS POSITIVE FOR PROTEUS MIRABILIS. SHE IS CURRENTLY RECEIVING LEVAQUIN IV, FORTAZ IV, DUONEBS TID, LASIX 20MG IV DAILY, THE POTASSIUM AND MAGNESIUM PROTOCOLS, AND HOME MEDICATIONS OF ELIQUIS, MEGACE, GLUCOPHAGE, TOPROL, MULTIVITAMINS, PROTONIX, ZOCOR, AND ULTRAM WERE RESUMED. TODAY, WE WILL ADD ALBUMIN 25% IV DAILY AND TRANSFUSE 2 UNITS OF PACKED RED BLOOD CELLS. OTHERWISE, WE PLAN TO FOLLOW UP WITH AM LABS AND CONTINUE TO MONITOR. TIME SPENT ON CLINICAL ASSESSMENT, REVIEWING LABS AND IMAGING, DECISION MAKING, AND DOCUMENTATION GREATER THAN 45 MINUTES. - Past Medical Family Social History Past Med/Fam/Surg Hx: No changes since H&P Allergies: Allergies SERA Inhibitors Adverse Reaction (Intermediate, Verified 10/09/21 10:42) angioedema - Review of Systems ROS: No change since H&P - Vital Signs and I&O's Vital Signs: Temperature 98.5 F Pulse Rate [Right Brachial] 106 Pulse Rate 108 Respiratory Rate 27 Blood Pressure [Right Arm] 106/69 Blood Pressure [Left Arm] 143/79 Blood Pressure 113/51 O2 Sat by Pulse Oximetry 98 Intake and Output: Intake & Output 10/11/21 10/12/21 10/13/21 10/14/21 11:59 11:59 11:59 11:59 Intake Total 360 / 360 540 / 540 1870 / 1870 Output Total 2250 / 2250 700 / 700 1050 / 1050 Balance -1890 / -1890 -160 / -160 820 / 820 - Physical Exam Oriented: Normal Eyes: Normal Ear: Normal Throat: Normal Respiratory: Generalized, Rhonchi Cardiovascular: Tachycardia, Irregular, Edema : Normal Auscultation: Bowel Sounds: Normal Palpation: Normal Tenderness: Diffuse, Mild Skin: Decreased Turgur, Wound (bilateral upper extremity skin tears) Musculoskeletal: Normal Psychiatric: Normal Mood Description: Calm Affect: Normal Speech Pattern: Clear, Delayed - Laboratory and Diagnostics Result Diagrams: 10/13/21 07:25 10/13/21 07:25 Labs: 10/09/21 12:50 Blood Blood Culture - Preliminary 10/09/21 09:27 Blood Blood Culture - Preliminary 10/09/21 15:00 Sacral Wound Gram Stain - Final 10/09/21 15:00 Sacral Wound Culture - Final Klebsiella Pneumoniae Proteus Mirabilis 10/09/21 09:41 Urine,Catheterized Urine Culture - Final Proteus Mirabilis Laboratory WBC 8.0 X10^3/uL (3.6-10.0) 10/13/21 07:25 RBC 3.50 X10^6/uL (3.5-5.4) 10/13/21 07:25 Hgb 11.2 g/dL (12.0-16.0) L 10/13/21 07:25 Hct 32.4 % (36.0-47.0) L 10/13/21 07:25 MCV 92.6 fL (80.0-100.0) 10/13/21 07:25 MCH 32.1 pg (27.0-34.0) 10/13/21 07:25 MCHC 34.6 g/dL (33.0-35.0) 10/13/21 07:25 RDW 20.6 % (11.6-16.5) H 10/13/21 07:25 Plt Count 195 X10^3/uL (150.0-450.0) 10/13/21 07:25 Plt Count Comment Adequate (ADEQUATE) 10/13/21 07:25 MPV 9.6 fL (7.4-11.0) 10/13/21 07:25 Neut % (Auto) 83.0 % (42.0-75.0) H 10/13/21 07:25 Lymph % (Auto) 10.2 % (21.0-51.0) L 10/13/21 07:25 [place] % (Auto) 6.3 % (0.0-13.0) 10/13/21 07:25 Eos % (Auto) 0.1 % (0.9-2.9) L 10/13/21 07:25 Baso % (Auto) 0.4 % (0.2-1.0) 10/13/21 07:25 Neut # (Auto) 6.6 x10^3/uL (2.2-4.8) H 10/13/21 07:25 Lymph # (Auto) 0.8 X10^3/uL (1.3-2.9) L 10/13/21 07:25 [place] # (Auto) 0.5 x10^3/uL (0.3-0.8) 10/13/21 07:25 Eos # (Auto) 0.0 x10^3/uL (0.0-0.2) 10/13/21 07:25 Baso # (Auto) 0.0 X10^3/uL (0.0-0.1) 10/13/21 07:25 Absolute Nucleated RBC 0.6 /100WBC 10/13/21 07:25 Giant Platelets Few 10/09/21 09:27 Plt Morphology Comment Normal (NORMAL) 10/13/21 07:25 RBC Morphology Abnormal (NORMAL) A 10/13/21 07:25 Dimorphic RBCs Slight 10/10/21 04:30 Hypochromasia 1+ A 10/12/21 04:51 Poikilocytosis 1+ A 10/11/21 04:43 Anisocytosis 1+ A 10/13/21 07:25 Tear Drop Cells Present 10/12/21 04:51 Ovalocytes Present 10/13/21 07:25 [place] Cells Present 10/13/21 07:25 Acanthocytes (Spur) Present 10/10/21 04:30 Sodium 151 mmol/L (136-145) H* 10/13/21 07:25 Corrected Sodium TNP 10/13/21 07:25 Potassium 3.9 mmol/L (3.5-5.1) 10/13/21 07:25 Chloride 121 mmol/L (98-107) H* 10/13/21 07:25 Carbon Dioxide 17.6 mmol/L (21-32) L 10/13/21 07:25 BUN 27 mg/dL (7-18) H 10/13/21 07:25 Creatinine 0.84 mg/dL (0.55-1.02) 10/13/21 07:25 Est GFR (MDRD) Af Amer > 60 (>60) 10/13/21 07:25 Est GFR (MDRD) Non-Af > 60 (>60) 10/13/21 07:25 Glucose 94 mg/dL (65-99) 10/13/21 07:25 POC Glucose (mg/dL) 84 mg/dL (65-99) 10/13/21 10:48 Lactic Acid 1.8 mmol/L (0.4-2.0) 10/09/21 09:27 Calcium 8.8 mg/dL (8.5-10.1) 10/13/21 07:25 Corrected Calcium 10.5 mg/dL (8.5-10.1) H 10/13/21 07:25 Magnesium 2.1 mg/dL (1.7-2.9) 10/11/21 04:43 Total Bilirubin 1.10 mg/dL (0.2-1.0) H 10/13/21 07:25 AST 42 Units/L (15-37) H 10/13/21 07:25 ALT 26 Units/L (12-78) 10/13/21 07:25 Alkaline Phosphatase 77 Units/L (46-116) 10/13/21 07:25 Ammonia 29 umol/L (11-32) 10/09/21 09:27 Total Protein 5.3 g/dL (6.4-8.2) L 10/13/21 07:25 Albumin 1.9 g/dL (3.4-5.0) L 10/13/21 07:25 Globulin 3.4 g/dL (2.5-4.5) 10/13/21 07:25 Albumin/Globulin Ratio 0.6 Ratio (1.1-2.1) L 10/13/21 07:25 Amylase 23 Units/L (25-115) L 10/09/21 09:27 Lipase 72 Units/L (73-393) L 10/09/21 09:27 Specimen Type Catherized urine 10/09/21 09:41 Urine Color Yellow (YELLOW) 10/09/21 09:41 Urine Appearance Hazy (CLEAR) 10/09/21 09:41 Urine pH 8.0 (5.0 - 8.0) 10/09/21 09:41 Ur Specific [place] 1.010 (1.000-1.030) 10/09/21 09:41 Urine Protein 3+ (NEGATIVE) 10/09/21 09:41 Urine Glucose (UA) Negative (NEGATIVE) 10/09/21 09:41 Urine Ketones 1+ (NEGATIVE) 10/09/21 09:41 Urine Occult Blood 4+ (NEGATIVE) 10/09/21 09:41 Urine Nitrite Negative (NEGATIVE) 10/09/21 09:41 Urine Bilirubin Negative (NEGATIVE) 10/09/21 09:41 Urine Urobilinogen Normal (NORMAL) 10/09/21 09:41 Ur Leukocyte Esterase 3+ (NEGATIVE) 10/09/21 09:41 Urine RBC 5-10 /HPF (0-3) A 10/09/21 09:41 Urine WBC Tntc /HPF (0-5) A 10/09/21 09:41 Ur Squamous Epith Cells Few /HPF (NEGATIVE) 10/09/21 09:41 Urine Bacteria 3+ /HPF (NEGATIVE) 10/09/21 09:41 Hyaline Casts Few /LPF (NEGATIVE) 10/09/21 09:41 Urine Mucus Many /HPF (NEGATIVE) 10/09/21 09:41 Ur Culture Indicated? Yes/culture set up 10/09/21 09:41 Digoxin 0.69 ng/mL (0.9-2) L 10/12/21 18:52 SARS-CoV-2 (PCR) Negative (NEGATIVE) 10/09/21 09:30 Influenza Type A (PCR) Negative (NEGATIVE) 10/09/21 09:30 Influenza Type B (PCR) Negative (NEGATIVE) 10/09/21 09:30 RSV (PCR) Negative (NEGATIVE) 10/09/21 09:30 Blood Type O POSITIVE 10/12/21 10:05 Antibody Screen Negative 10/12/21 10:05 Crossmatch See Detail 10/12/21 10:05 - Plan (1) Pneumonia Status: Acute Qualifiers: Pneumonia type: due to unspecified organism Laterality: left Lung location: lower lobe of lung Qualified Code(s): J18.9 - Pneumonia, unspecified organism Plan: RESP THERAPY, SUPPLEMENTAL O2. IV ATBX, ALBUMIN, NEB [place]. STRICT I&OS WITH FAIRCHILD CATH (2) Acute UTI Status: Acute (3) Malignant ascites Status: Acute (4) Anemia Status: Acute Qualifiers: Anemia type: unspecified type Qualified Code(s): D64.9 - Anemia, unspecified Plan: TRANSFUSE 2 UNITS PRBC (5) Infected decubitus ulcer Status: Acute Qualifiers: Pressure injury stage: unspecified pressure injury stage Qualified Code(s): L89.90 - Pressure ulcer of unspecified site, unspecified stage; L08.9 - Local infection of the skin and subcutaneous tissue, unspecified
[2021-10-13] MEDS: ULTRAM PO PRN (15:51)
[2021-10-13] MEDS: LOPID PO SCH (21:07)
[2021-10-13] MEDS: ZOCOR TAB 20 MG PO SCH (21:07)
[2021-10-14] MEDS: DUONEB 0.5 MG/3 MG (3 mL) NEB SCH (05:14)
[2021-10-14] MEDS: FORTAZ or TAZICEF VIAL INJ 1 G in NS 100 ML IV + SPIKE MINIBAG* 100 ML IV SCH (05:31)
--- NOTE | 2021-10-14 05:54 | RAD ---
PROCEDURE: Chest X-ray 1 View .HISTORY: Dyspnea.TECHNIQUE: AP view .COMPARISON: 10/13/2021.TECHNICAL QUALITY: Satisfactory .FINDINGS:Cardio mediastinal silhouette and central vascularity are unremarkable.Unchanged increased density left lower lobe could be related to pneumonia or atelectasis. No pleural fluid or pneumothorax. Right lung hernández clear.IMPRESSION:Unchanged left lower lobe pneumonia or atelectasis.Electronically signed by: Samy Montes (Oct 14, 2021 05:52:30)
[2021-10-14 06:11] LABS: BASOPHILS % (AUTO) 0.3 % (0.2-1.0); EOSINOPHILS % (AUTO) 0.2 % (0.9-2.9); HEMATOCRIT 32.8 % (36.0-47.0); HEMOGLOBIN 11.1 g/dL (12.0-16.0); LYMPHOCYTES % (AUTO) 13.2 % (21.0-51.0); MEAN CORPUSCULAR HEMOGLOBIN 31.6 pg (27.0-34.0); MEAN CORPUSCULAR HGB CONC 33.7 g/dL (33.0-35.0); MEAN CORPUSCULAR VOLUME 93.7 fL (80.0-100.0); MEAN PLATELET VOLUME 9.9 fL (7.4-11.0); MONOCYTES # (AUTO) 0.5 x10^3/uL (0.3-0.8); MONOCYTES % (AUTO) 7.1 % (0.0-13.0); NEUTROPHILS # (AUTO) 6.1 x10^3/uL (2.2-4.8); NEUTROPHILS % (AUTO) 79.2 % (42.0-75.0); PLATELET COUNT 188 X10^3/uL (150.0-450.0); RED CELL DISTRIBUTION WIDTH 21.2 % (11.6-16.5); WHITE BLOOD COUNT 7.6 X10^3/uL (3.6-10.0)
[2021-10-14 06:30] LABS: ALANINE AMINOTRANSFERASE 22 Units/L (12-78); ALBUMIN 2.1 g/dL (3.4-5.0); ALKALINE PHOSPHATASE 71 Units/L (46-116); ASPARTATE AMINO TRANSFERASE 28 Units/L (15-37); BLOOD UREA NITROGEN 25 mg/dL (7-18); CARBON DIOXIDE 18.8 mmol/L (21-32); COR CA(FOR HYPOALB) 10.5 mg/dL (8.5-10.1); TOTAL PROTEIN 5.3 g/dL (6.4-8.2); eGFR NON BLACK RACES > 60 (>60)
[2021-10-14 06:44] LABS: CHLORIDE 123 mmol/L (98-107); SODIUM 154 mmol/L (136-145)
[2021-10-14 07:26] LABS: ANISOCYTOSIS 1+; PLATELET MORPHOLOGY COMMENT NORMAL (NORMAL)
[2021-10-14 08:00] VITALS: BP 119/56
[2021-10-14] MEDS ORDERED: TOPROL XL PO SCH (09:00)
[2021-10-14] MEDS: GLUCOPHAGE PO SCH (09:03)
[2021-10-14] MEDS ORDERED: TOPROL XL PO ONE (09:07)
[2021-10-14] MEDS: ALBUMIN HUMAN 25%- 100 ML 100 ML IV SCH (09:12)
[2021-10-14] MEDS: ELIQUIS PO SCH (09:38)
[2021-10-14] MEDS: CARDIZEM CD 120 MG 24-HR PO SCH (09:38)
[2021-10-14] MEDS: LASIX IVP SCH (09:39)
[2021-10-14] MEDS: MEGACE PO SCH (09:39)
[2021-10-14] MEDS: K-DUR TAB 20 MEQ PO SCH (09:39)
[2021-10-14] MEDS: PROTONIX TAB 40 MG PO SCH (09:39)
[2021-10-14] MEDS: TAB-A-VITE PO SCH (09:40)
[2021-10-14] MEDS: VSL#3 PO SCH (09:40)
[2021-10-14] MEDS ORDERED: NS 100 ML IV 100 ML ONE (09:44)
== END 2021-10-14 11:05 | disposition hospice, home (50) | DRG 193 ==
LOC: MED/SURG 08:19 → ER 08:19 → MED/SURG 12:02 → ICU 10-12 11:02 → MED/SURG 10-13 12:26
PROVIDERS: ADMIT Internal Medicine; ATTEND Internal Medicine
DX: K21.9 Gastro-esophageal reflux disease without esophagitis; R53.1 Weakness; R94.31 Abnormal electrocardiogram [ECG] [EKG]; J18.8 Other pneumonia, unspecified organism; R06.02 Shortness of breath; R62.7 Adult failure to thrive; B96.1 Klebsiella pneumoniae [K. pneumoniae] as the cause of diseases classified elsewhere; I48.91 Unspecified atrial fibrillation; L89.153 Pressure ulcer of sacral region, stage 3; E87.0 Hyperosmolality and hypernatremia; Z85.038 Personal history of other malignant neoplasm of large intestine; Z20.822 Contact with and (suspected) exposure to COVID-19; E11.65 Type 2 diabetes mellitus with hyperglycemia; N39.0 Urinary tract infection, site not specified; Z92.21 Personal history of antineoplastic chemotherapy; C79.60 Secondary malignant neoplasm of unspecified ovary; Z66 Do not resuscitate; R06.03 Acute respiratory distress; I10 Essential (primary) hypertension; I25.10 Atherosclerotic heart disease of native coronary artery without angina pectoris; E78.2 Mixed hyperlipidemia; R18.0 Malignant ascites; B96.4 Proteus (mirabilis) (morganii) as the cause of diseases classified elsewhere